=== PATIENT | female | born 1975 | race Caucasian/White ===

== ENCOUNTER 2017-02-21 18:38 | Inpatient (IN) | payer MEDICAID, OTHER ==
[~2017-02-21] VITALS: Ht 160 cm; Wt 81.5 kg
[2017-02-21 19:09] VITALS: Ht 160 cm; Wt 81.5 kg
[2017-02-21] MEDS ORDERED: ONDANSETRON 4 MG INJ IV STA (19:10)
[2017-02-21] MEDS ORDERED: SODIUM CHLORIDE 0.9% 1L BAG IV* STA (19:10)
[2017-02-21] MEDS ORDERED: INSULIN LISPRO 100 UNIT/ML VIAL SC STA (19:13)
[2017-02-21] MEDS ORDERED: CEFTRIAXONE 1 GM/50 ML (PMX) 50 ML IVPB ONE (19:30)
[2017-02-21 19:38] LABS: AADO2 Arterial 56.8 mmHg (7.0-24.0); Arterial Base Excess -7.9 mmol/L (-3.0-3); Arterial COHb 0.2 % (0.0-3.0); Arterial Fraction of Oxyhgb 90.8 % (93.0-99.0); Arterial HCO3 15.4 mmol/L (22.0-26.0); Arterial MetHb 0.1 % (0.0-1.5); MODE ROOM AIR
[2017-02-21 19:42] LABS: BASOPHILS % 0.3 % (0.0-2.0); EOSINOPHILS % 0.4 % (0.0-7.0); HEMATOCRIT 35.3 % (37.0-47.0); HEMOGLOBIN 10.3 g/dl (12.0-16.0); LYMPHOCYTES # 2.7 10^3/ul (0.8-2.9); MEAN CORPUSCULAR HGB CONC 29.2 g/dl (32.0-37.0); MEAN CORPUSCULAR VOLUME 71.9 fl (82.0-101.0); MEAN PLATELET VOLUME 9.7 fl (7.4-10.4); MONOCYTE # 0.2 10^3/ul (0.3-0.9); MONOCYTES % 1.9 % (0.0-11.0); NEUTROPHIL # 6.3 10^3/ul (1.6-7.5); NEUTROPHILS % 67.1 % (39.0-77.0); PLATELET COUNT 275 10^3/UL (140-415); RED BLOOD COUNT 4.91 10^6/ul (4.20-5.40); RED CELL DISTRIBUTION WIDTH 16.7 % (11.5-14.5); WHITE BLOOD COUNT 9.5 10^3/ul (4.8-10.8)
[2017-02-21 19:58] LABS: INR 1.33; PROTIME 16.6 Sec (12.2-14.2); PT RATIO 1.3
[2017-02-21 19:59] LABS: ALBUMIN/GLOBULIN RATIO 0.93; BILIRUBIN,INDIRECT 0.3 mg/dl (0-1.1); BILIRUBIN,TOTAL 0.3 mg/dl (0.2-1.3); CALCIUM 8.8 mg/dl (8.4-10.2); CREATININE 0.79 mg/dl (0.44-1.00); PARTIAL THROMBOPLASTIN TIME 29.4 Sec (25.0-35.0); TOTAL PROTEIN 8.3 g/dl (6.1-8.1)
[2017-02-21 20:02] LABS: ADD UMIC YES; UR ASCORBIC ACID NEGATIVE (NEGATIVE); UR BILIRUBIN (Dip) NEGATIVE (NEGATIVE); UR BLOOD (Dip) NEGATIVE (NEGATIVE); UR CLARITY SLIGHTLY CLOUDY (CLEAR); UR COLOR YELLOW (YELLOW); UR GLUCOSE (Dip) 3+ mg/dL (NEGATIVE); UR KETONES (Dip) TRACE mg/dL (NEGATIVE); UR LEUKOCYTE ESTERASE (Dip) NEGATIVE Leu/ul (NEGATIVE); UR NITRITE (Dip) NEGATIVE (NEGATIVE); UR RBC 2 /HPF (0-5); UR SPECIFIC GRAVITY (Dip) 1.029 (1.003-1.030); UR TOTAL PROTEIN (Dip) 3+ mg/dl (NEGATIVE); UR UROBILINOGEN (Dip) 1+ mg/dL (NEGATIVE)
[2017-02-21] MEDS ORDERED: POTASSIUM CHLORIDE 40 MEQ in SOD CHLORIDE 0.9% 1,000 ML IV STA (20:11)
[2017-02-21 20:12] LABS: TROPONIN-I 0.025 ng/ml (0.00-0.12)
--- NOTE | 2017-02-21 20:25 | RADRPT ---
PROCEDURE: Noncontrast CT Head. CLINICAL INDICATION: Syncope. TECHNIQUE: Noncontrast CT of the head was obtained. The administered radiation dose was CTDI vol = 45.01 mGy, DLP = 720.23 mGy-cm. One or more of the following dose reduction techniques were used: Au tomated exposure control, Adjustment of the mA and/or kV according to patient size, or Use of iterat patricia reconstruction technique. COMPARISON: There are no similar studies submitted for comparison. FINDINGS: There is no acute intracranial hemorrhage, midline shift, or mass effect. The cerebral vidal-white ma tter differentiation appears preserved. No extra-axial collection is seen. The cerebral sulci and ve ntricles are within normal limits in size and configuration for patient's age. Mild low attenuation in the deep cerebral white matter is nonspecific, but suggestive of mild chronic microangiopathic ch travis. The basal cisterns are preserved. The posterior fossa structures are grossly unremarkable, alt ton suboptimally evaluated with CT secondary to beam-hardening artifact. The right frontal sinus i s hypoplastic. The remaining visualized paranasal sinuses and visualized mastoid air cells are clear . No acute fracture or suspicious osseous lesion is identified. IMPRESSION: 1. No evidence of an acute intracranial process. 2. 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 3. Hypoplastic right frontal sinus. RPTAT: [facility] Physician Alejandro Date Time Electronically viewed and signed by Physician Alejandro on 02/21/2017 20:25 DYAN/
--- NOTE | 2017-02-21 20:29 | ERD ---
ER Documentation Chief Complaint Chief Complaint syncope at work +n/v +fever hx dm bs 432 HPI 41-year-old woman brought in by family members for syncopal episode which occurred about half an hour prior to arrival. 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 States she has had dysuria 2 days. The syncopal episode was witnessed no one documented tonic-clonic seizure activity. Momentary bowel and bladder incontinence did occur and she seemed postictal and confused after getting up. Patient also has a history of diabetes mellitus and is noncompliant with her medications. She has had no recent antibiotic use, no recent travel. ROS All systems reviewed and are negative except as per history of present illness. Allergies Allergies: Coded Allergies: No Known Allergy (Unverified , 02/21/17) PMhx/Soc Diabetes mellitus FmHx Family History: diabetes Physical Exam Vitals Vital Signs Date Time Temp Pulse Resp B/P Pulse Ox O2 Delivery O2 Flow Rate FiO2 02/21/17 21:56 99.9 106 18 78/49 100 Nasal Cannula 3.0 02/21/17 19:51 3.0 02/21/17 19:09 104.1 161 18 109/64 100 02/21/17 19:00 100.1 107 19 95/55 100 Nasal Cannula 2.0 02/21/17 19:00 Nasal Cannula Physical Exam GENERAL: Well-developed, well-nourished, febrile, dehydrated, appears postictal HEENT: Dry mucous membranes, pink conjunctiva, no cervical spine tenderness or step-off deformities, no goiter, no jaundice or icterus, extraocular movements intact without pain. No submandibular induration, and no pharyngeal erythema NEURO: Patient appears confused and is unwilling or unable to speak, pupils are equal round reactive to light, she has no focal deficits or facial asymmetry, is able to answer simple questions and follow commands. CARDIAC: Tachycardic and regular, no murmurs rubs or gallops LUNGS: Clear bilaterally no wheezing crackles or stridor ABDOMEN: Soft nontender, no guarding, no rigidity, no rebound, no psoas sign no obturator sign. Normoactive bowel sounds SKIN: Warm and dry to touch, no abrasions, contusions, or hematomas, no lacerations, no ecchymosis, no target lesions, and without ulcers EXTREMITIES: No clubbing cyanosis or edema, calves are bilaterally symmetrical, no Homans sign, no popliteal cord sign. Distal pulses equal and bilateral PSYCH: Normal affect without agitation or irritability Result Diagram: 02/21/17192302/21/171923 Results 24 hrs Laboratory Tests Test 02/21/17 19:07 02/21/17 19:13 02/21/17 19:24 02/21/17 19:30 Bedside Glucose 432mg/dL Blood Gas Specimen Source Blood arterial Arterial Blood Date Drawn 02/21/2017 7:25:40 PM Arterial Blood pH (Temp corrected) 7.403 Arterial Blood pCO2 (Temp correct) 25.2mmhg Arterial Blood pO2 (Temp corrected) 62.8mmHG Arterial Blood HCO3 15.4mmol/L Arterial Blood Base Excess -7.9mmol/L Arterial Blood Oxygen Saturation 91.1mmHG Guillermo Test N/A Arterial Blood Gas Puncture Site Right Brachial Arterial Blood Carboxyhemoglobin 0.2% Arterial Blood Methemoglobin 0.1% Blood Gas A-a O2 Differential 56.8mmHg Oxyhemoglobin Percent 90.8% Total Hemoglobin 11.0g/dl Blood Gas Temperature 37.0C Blood Gas Modality ROOM AIR FiO2 21.0% Blood Gas Notified Whom KM Blood Gas Notified Time 02/21/2017 7:38:26 PM White Blood Count 9.510^3/ul Red Blood Count 4.9110^6/ul Hemoglobin 10.3g/dl Hematocrit 35.3% Mean Corpuscular Volume 71.9fl Mean Corpuscular Hemoglobin 21.0pg Mean Corpuscular Hemoglobin Concent 29.2g/dl Red Cell Distribution Width 16.7% Platelet Count 80297^3/UL Mean Platelet Volume 9.7fl Neutrophils % 67.1% Lymphocytes % 29.0% Monocytes % 1.9% Eosinophils % 0.4% Basophils % 0.3% Nucleated Red Blood Cells % 0.0/100WBC Neutrophils # 6.310^3/ul Lymphocytes # 2.710^3/ul Monocytes # 0.210^3/ul Eosinophils # 0.010^3/ul Basophils # 0.010^3/ul Nucleated Red Blood Cells # 0.010^3/ul Prothrombin Time 16.6Sec Prothrombin Time Ratio 1.3 INR International Normalized Ratio 1.33 Activated Partial Thromboplast Time 29.4Sec Sodium Level 136mmol/L Potassium Level 3.0mmol/L Chloride Level 100mmol/L Carbon Dioxide Level 16mmol/L Anion Gap 23 Blood Urea Nitrogen 11mg/dl Creatinine 0.79mg/dl Glucose Level 454mg/dl Lactic Acid Level 4.5mmol/L Calcium Level 8.8mg/dl Total Bilirubin 0.3mg/dl Direct Bilirubin 0.00mg/dl Indirect Bilirubin 0.3mg/dl Aspartate Amino Transf (AST/SGOT) 29IU/L Alanine Aminotransferase (ALT/SGPT) 37IU/L Alkaline Phosphatase 154IU/L Troponin I 0.025ng/ml Total Protein 8.3g/dl Albumin 4.0g/dl Globulin 4.30g/dl Albumin/Globulin Ratio 0.93 Lipase 78U/L Urine Color YELLOW Urine Clarity SLIGHTLY CLOUDY Urine pH 5.0 Urine Specific Gardiner 1.029 Urine Ketones TRACEmg/dL Urine Nitrite NEGATIVEmg/dL Urine Bilirubin NEGATIVEmg/dL Urine Urobilinogen 1+mg/dL Urine Leukocyte Esterase NEGATIVELeu/ul Urine Microscopic RBC 2/HPF Urine Microscopic WBC 18/HPF Urine Hemoglobin NEGATIVEmg/dL Urine Glucose 3+mg/dL Urine Total Protein 3+mg/dl Test 02/21/17 20:10 Bedside Glucose 382mg/dL Current Medications Medications (Trade) Dose Ordered Sig/Hayden Route PRN Reason Start Time Stop Time Status Last Admin Dose Admin Sodium Chloride (NS) 4,000 ml BOLUS OVER 2 HOURS STAT IV* 02/21/17 19:10 02/21/17 19:12 DC 02/21/17 19:54 Ondansetron HCl 4 mg 4 mg ONCE STAT IV 02/21/17 19:10 02/21/17 19:12 DC 02/21/17 19:54 Ceftriaxone Sodium (Rocephin) 50 ml @ 100 mls/hr ONCE ONCE IVPB 02/21/17 19:30 02/21/17 19:59 DC 02/21/17 19:55 Insulin Human Lispro 12 unit 12 unit ONCE STAT SC 02/21/17 19:13 02/21/17 19:14 DC 02/21/17 19:58 Potassium Chloride 40 meq/ Sodium Chloride 1,020 ml @ 200 mls/hr Q5H6M STAT IV 02/21/17 20:11 02/22/17 01:16 02/21/17 21:09 Magnesium Sulfate (Magnesium Sulfate 2 Gm/50 ml) 50 ml @ 25 mls/hr ONCE ONCE IVPB 02/21/17 20:30 02/21/17 22:29 02/21/17 21:09 Potassium Chloride 20 meq 20 meq ONCE STAT PO 02/21/17 21:01 02/21/17 21:06 DC 02/21/17 21:22 Vancomycin HCl (Vancocin) 250 ml @ 125 mls/hr ONCE IVPB 02/21/17 21:30 02/21/17 23:29 02/21/17 21:22 Ondansetron HCl (Zofran Inj) 4 mg Q6H PRN IV NAUSEA AND/OR VOMITING 02/21/17 22:00 Albuterol/ Ipratropium (Duoneb) 3 ml Q2H RESP THERAPY PRN NEB SHORTNESS OF BREATH 02/21/17 22:00 Acetaminophen (Tylenol Liquid) 650 mg Q6H PRN PO PAIN LEVEL 1-3 OR FEVER 02/21/17 22:00 Morphine Sulfate (morphine) 2 mg Q4H PRN IV PAIN LEVEL 7-10 02/21/17 22:00 Famotidine (Pepcid Iv) 20 mg Q12 IV 02/22/17 09:00 Heparin Sodium (Porcine) (Heparin (5000 Units/0.5 ml)) 5,000 unit Q12 SC 02/22/17 09:00 Dextrose (D50w Syringe) 50 ml Q15M PRN IV For BS 50 or less 02/21/17 22:00 Dextrose 25 ml 25 ml Q15M PRN IV BS between 50-70 02/21/17 22:00 Sodium Chloride 1,000 ml @ 1,000 mls/hr Q1H IV 02/21/17 21:48 02/21/17 22:47 Lactated Ringer's 1,000 ml @ 1,000 mls/hr Q1H IV 02/21/17 22:48 02/21/17 23:47 Potassium Chloride 20 meq/ Sodium Chloride 1,010 ml @ 500 mls/hr Q2H2M IV 02/21/17 23:48 02/22/17 01:47 Insulin Human Regular/Sodium Chloride (Novolin-R/NS) 100 ml @ 0 mls/hr DKA PROTOCOL IV 02/21/17 22:00 Diagnostic Test (Pha) (Accu-Chek) 1 ea Q1H XX 02/21/17 22:00 Miscellaneous Information HYPOGLYCEMIA TREATMENT HYPOGLYCEM PROTOCOL PRN XX Hypoglycemia (BS < 70) 02/21/17 22:00 Ceftriaxone Sodium (Rocephin) 50 ml @ 100 mls/hr Q12 IVPB 02/22/17 09:00 Procedures/MDM IV line was established 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 Patient was febrile. Blood and urine, stool cultures have been ordered results are pending I will follow-up. Joseph catheter was placed. Patient was initially hyperglycemic with a blood sugar of over 400. EKG performed, read by me revealed a sinus tachycardia at 150 bpm, normal axis, narrow QRS complex, no concerning ST elevations or depressions noted. Administered 4 L normal saline, ibuprofen 600 mg p.o., and lispro insulin 12 units subcutaneous injection 1 for hyperglycemia. Patient also received Zofran 4 mg IV for vomiting. ABG on room air revealed a pH of 7.4, PCO2 25, PO2 63. PH is normal although I suspect early metabolic acidosis. Chest X-ray 1V Interpreted by me: Soft Tissue: No acute abnormalities Bones: No acute abnormalities Mediastinum/Cardiac Silhouette/Lungs: No acute abnormalities CT scan of the brain was performed that was negative for acute bleed mass or shift. CBC was unremarkable, electrolytes revealed hyperglycemia and a low potassium at 3.0. Bicarb low at 16, liver function tests normal, troponin negative. Coagulation profile was normal. Urine analysis was concerning for infection with elevated urine WBCs especially in the setting of fever and 2 days of dysuria. I suspect sepsis secondary to urinary tract infection. Lactic acid elevated initially at 4.5 consistent with septic shock. Patient's blood sugar has improved and I do suspect diabetic ketoacidosis although potassium is less than 3 and we will hold insulin drip until potassium is adequately corrected. The patient was placed on a normal saline 40 mEq potassium drip supplemented at 200 m/hour the patient also received magnesium 2 g IV 1. Patient may have suffered a tonic-clonic seizure today most likely secondary to sepsis and high fever with a temperature over 105F. She will be admitted to intensive care unit for continued medical management, IV hydration, DKA management, and IV antibiotics. Patient's infectious symptoms have not stabilized and the patient is at risk of rapid decompensation. The patient will be admitted for careful hydration, antibiotic therapy, and infectious source control. Patient also received vancomycin 1 g IV 1. Severe Sepsis Assessment: Infectious Source: pyleonephritis End organ damage indicated by: [Lactate > 2.0 mmol/L Severe Sepsis Managment: Blood Cultures X 2 before broad spectrum antibiotics initiated within 3 hours of recognition. 30 ml/kg NS bolus Completed Initial Lactate: 4.5 Repeat Lactate elevated Critical Care: Time: 50 minutes, this is time separate from other billable procedures Treatments/Evaluations: Emergent fluid management, while maintaining close respiratory support. Immediate broad spectrum antibiotic therapy. Simultaneous assessment for possible sources in order to direct therapy. Consideration for invasive and chemical support to prevent respiratory or cardiac collapse. Septic Shock Assessment (1 hour post 30 ml/kg fluid bolus): Hypotension (SBP < 90 or 40 mmHg drop, MAP < 65): No Lactic acid > 4.0 yes Perfusion Reassessment for Septic Shock: Temp 101F, pulse 120 bpm, respiratory rate 20 breaths per minute, BP 130/82 Heart Exam: Tachycardic Lung Exam: No Crackles Capillary Refill: Less than 2 seconds Peripheral Pulses: Radially present Skin: Vaughn and dry Hypotensive Treatment (not required for isolated lactic acid elevation): Comfort Care: No Central LIne: Not indicated Vasopressor started: Not indicated I considered further perfusion assessment with CVP measurement, SCVO2, bedside ultrasound volume assessment, passive leg raise, trial of further fluid bolus. And preceded with aggressive IV hydration, broad-spectrum antibiotics, potassium supplementation Accepting Care Team: Current data and ongoing care discussed. Time: Time of admission Primary Provider: Hospitalist Consulting: Infectious disease disease and Endocrinology Outstanding Data: none Departure Diagnosis: Primary Impression: Syncope Syncope type: unspecified Qualified Code: R55 - Syncope, unspecified syncope type Additional Impressions: Septic shock Acute pyelonephritis Diabetic ketoacidosis Diabetes mellitus type: type 2 Diabetes mellitus complication detail: without coma Qualified Code: E13.10 - Diabetic ketoacidosis without coma associated with type 2 diabetes mellitus Acute hypokalemia Acute hyperglycemia Condition: Serious DIEUDONNE العراقي MD Feb 21, 2017 20:11
[2017-02-21] MEDS ORDERED: MAGNESIUM SULFATE 2 GM/50 ML 50 ML IVPB ONE (20:30)
--- NOTE | 2017-02-21 20:54 | RADRPT ---
PROCEDURE: XR Chest 1 View. CLINICAL INDICATION: Shortness of breath. Sepsis. TECHNIQUE: AP view of the chest was obtained. COMPARISON: None. FINDINGS: The cardiomediastinal silhouette is within normal limits. Elevated right hemidiaphragm is identified . Scattered atelectasis is noted in both lungs. The lungs are hypoinflated. No consolidations are id entified. No pneumothorax is seen. Osseous structures are intact. IMPRESSION: Hypoinflated lungs with an elevated right hemidiaphragm. Scattered subsegmental atelectasis in both lungs. RPTAT: AA .Rico Beard MD, MD Date Time Electronically viewed and signed by .Rico Beard MD, MD on 02/21/2017 20:54 .P/
[2017-02-21] MEDS ORDERED: POTASSIUM CHLORIDE (SR) 20 MEQ TAB PO STA (21:01)
[2017-02-21] MEDS ORDERED: VANCOMYCIN 1 GM (PMX) 250 ML IVPB SCH (21:30)
[2017-02-21] MEDS ORDERED: SOD CHLORIDE 0.9% 1,000 ML IV SCH (21:48)
[2017-02-21] MEDS ORDERED: ALBUTEROL/IPRATROPIUM (NEB) 3 ML AMP NEB PRN (22:00)
[2017-02-21] MEDS ORDERED: INSULIN HUMAN REGULAR 100 UNIT in SOD CHLORIDE 0.9% 99 ML IV SCH (22:00)
[2017-02-21] MEDS ORDERED: DEXTROSE 50% 50 ML SYRINGE IV PRN ×2 (22:00)
[2017-02-21] MEDS: ACCU-CHEK XX SCH ×2 (22:14→23:00)
[2017-02-21] MEDS ORDERED: LACTATED RINGER'S 1,000 ML IV SCH (22:48)
[2017-02-21] MEDS ORDERED: DEXTROSE 5% 1,000 ML IV PRN (23:00)
[2017-02-21] MEDS: INSULIN REGULAR, HUMAN 100 UNIT in SOD CHLORIDE 0.9% 100 ML IV SCH ×2 (23:29)
[2017-02-21] MEDS ORDERED: ADJUSTMENT OF INSULIN INFUSION RATE (DKA PROTOCOL) XX SCH ×2 (23:30)
[2017-02-21] MEDS ORDERED: POTASSIUM CHLORIDE 20 MEQ in SOD CHLORIDE 0.9% 1,000 ML IV SCH (23:48)
[2017-02-22] VITALS (17 sets, daily range): BP systolic 81–105; BP diastolic 57–68; PULSE 72–89; RESP 14–32; TEMP 98.3; BMI 31.8
[2017-02-22 00:26] LABS: CALCIUM 7.1 mg/dl (8.4-10.2); CREATININE 0.73 mg/dl (0.44-1.00)
[2017-02-22] MEDS: ACCU-CHEK XX SCH ×24 (01:01→23:33)
[2017-02-22 01:02] LABS: POTASSIUM 2.9 mmol/L (3.5-5.1)
[2017-02-22] MEDS: morphine 2 MG INJ IV PRN (05:12)
[2017-02-22] MEDS ORDERED: SOD CHLORIDE 0.9% 500 ML IV ONE (06:00)
[2017-02-22] MEDS: IBUPROFEN 200 MG TAB PO PRN (06:24)
[2017-02-22 06:29] LABS: ALBUMIN/GLOBULIN RATIO 0.83; BILIRUBIN,INDIRECT 0.2 mg/dl (0-1.1); BILIRUBIN,TOTAL 0.2 mg/dl (0.2-1.3); CALCIUM 7.2 mg/dl (8.4-10.2); CREATININE 0.55 mg/dl (0.44-1.00); POTASSIUM 3.4 mmol/L (3.5-5.1); TOTAL PROTEIN 6.6 g/dl (6.1-8.1)
--- NOTE | 2017-02-22 06:40 | HP ---
Date/Time of Note Date/Time of Note DATE: 02/22/17 TIME: 06:30 Assessment/Plan VTE Prophylaxis VTE Prophylaxis Intervention: heparin Assessment/Plan Assessment/Plan 1. DKA -Insulin according to DKA protocol -Need to correct hypokalemia and as such insulin has to be hold momentarily -Continue IV fluids, correct electrolytes as needed -Endocrine consult -Diabetes teaching when the patient becomes more awake 2. Acute encephalopathy -Possibly secondary to seizure, related to DKA vs UTI vs other -Head CT negative for acute findings -Treat DKA and UTI -will obtain MRI of the brain 3. UTI -IV antibiotic - Follow-up culture results HPI/ROS Admit Date/Time Admit Date/Time Hx of Present Illness This is a 41-year-old female with a history of diabetes was brought to the ER for a loss of consciousness. 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 Patient is altered and as such information is gathered from chart review and from ER physician. Reportedly patient had fever 1 day and earlier today had nonbilious nonbloody emesis. Patient was in witnessed to have a loss of consciousness. The circumstances how it occurs is not clear. She did have a bladder and bowel incontinence but no witnessed seizure-like activity. When patient presented to the ER, she had a temperature of 100.1, heart rate 107 , BP 95/55. Labs shows glucose of 454, AG 23, bicarb 16, potassium 3, lactate 3. Urinalysis was consistent with UTI and also showed trace ketones. 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 Patient has been started on a DKA protocol and awaiting ICU admission. PMH/Family/Social Social History Smoking Status: Current every day smoker Exam/Review of Systems Vital Signs Vitals Vital Signs Date Time Temp Pulse Resp B/P Pulse Ox O2 Delivery O2 Flow Rate FiO2 02/22/17 05:09 98.9 101 19 96/65 100 Nasal Cannula 2.0 Exam Constitutional: other (Sleepy. No acute distress) Head: atraumatic, normocephalic Eyes: PERRL Respiratory: clear to auscultation Cardiovascular: other (Tachycardic with regular rhythm) Gastrointestinal: soft Extremities: normal pulses Labs Result Diagram: 02/21/17192302/21/17 2319 Medications Medications Current Medications Ondansetron HCl (Zofran Inj) 4 mg Q6H PRN IV NAUSEA AND/OR VOMITING; Start at 22:00 Acetaminophen (Tylenol Liquid) 650 mg Q6H PRN PO PAIN LEVEL 1-3 OR FEVER; Start 02/21/17 at 22:00 Morphine Sulfate (morphine) 2 mg Q4H PRN IV PAIN LEVEL 7-10 Last administered on 02/22/17 05:12; Admin Dose 2 MG; Start 02/21/17 at 22:00 Famotidine (Pepcid Iv) 20 mg Q12 IV ; Start 02/22/17 at 09:00 Heparin Sodium (Porcine) (Heparin (5000 Units/0.5 ml)) 5,000 unit Q12 SC ; Start 02/22/17 at 09:00 Dextrose (D50w Syringe) 50 ml Q15M PRN IV For BS 50 or less; Start 02/21/17 at 22:00 Dextrose (D50w Syringe) 25 ml Q15M PRN IV BS between 50-70; Start 02/21/17 at 22:00 Diagnostic Test (Pha) 1 ea 1 ea Q1H XX Last administered on 02/22/17 05:11; Admin Dose 1 EA; Start 02/21/17 at 22:00 Ceftriaxone Sodium (Rocephin) 50 ml @ 100 mls/hr Q12 IVPB ; Start 02/22/17 at 09:00 Miscellaneous Information 1 ea 1 ea NOTE XX ; Start 02/21/17 at 23:30 Dextrose (D5W) 1,000 ml @ 75 mls/hr IV PRN IV LOW BLOOD GLUCOSE Last administered on 02/22/17 00:01; Admin Dose 75 MLS/HR; Start 02/21/17 at 23:00 Miscellaneous Information 1 ea 1 ea NOTE XX ; Start 02/21/17 at 23:30 Potassium Chloride (KCl 40 MEQ/250 ML NS) 250 ml @ 62.5 mls/hr Q4H IVPB ; Start 02/22/17 at 06:00; Stop 02/22/17 at 13:59 Ibuprofen (Motrin) 400 mg Q6H PRN PO pain Last administered on 02/22/17 06:24 ; Admin Dose 400 MG; Start 02/22/17 at 06:00 Acetaminophen 650 mg 650 mg Q6H PRN PO pain; Start 02/22/17 at 06:00 Sodium Chloride (NS) 500 ml @ 500 mls/hr Q1H ONCE IV ; Start 02/22/17 at 06:00 ; Stop 02/22/17 at 06:59 SHLOMO KEN MD Feb 22, 2017 06:40
[2017-02-22] MEDS: POTASSIUM CHLORIDE 250 ML IVPB SCH ×2 (07:15→10:05)
[2017-02-22] MEDS: FAMOTIDINE 20 MG INJ IV SCH ×2 (08:41→20:18)
[2017-02-22] MEDS: ONDANSETRON 4 MG INJ IV PRN ×2 (08:41→16:48)
[2017-02-22] MEDS ORDERED: CEFTRIAXONE 1 GM/50 ML (PMX) 50 ML IVPB SCH (09:00)
[2017-02-22] MEDS: HEPARIN 5,000 UNIT/0.5 ML VIAL SC SCH ×2 (09:05→20:23)
[2017-02-22] MEDS ORDERED: SOD CHLORIDE 0.45% 1,000 ML IV SCH (11:00)
[2017-02-22] MEDS: DEXTROSE 5%-0.45% NACL 1,000 ML IV SCH ×3 (11:06→22:32)
[2017-02-22] MEDS: SOD CHLORIDE 0.45% 1,000 ML IV SCH ×2 (11:06→17:40)
[2017-02-22] MEDS: ACETAMINOPHEN 650MG/20.3ML CUP PO PRN (12:32)
[2017-02-22 14:38] LABS: ALBUMIN 2.4 g/dl (3.3-4.9); ALBUMIN/GLOBULIN RATIO 0.61; BILIRUBIN,INDIRECT 0.1 mg/dl (0-1.1); BILIRUBIN,TOTAL 0.1 mg/dl (0.2-1.3); CALCIUM 7.3 mg/dl (8.4-10.2); CREATININE 0.48 mg/dl (0.44-1.00); POTASSIUM 3.8 mmol/L (3.5-5.1); TOTAL PROTEIN 6.3 g/dl (6.1-8.1)
[2017-02-22 14:58] LABS: TOTAL IRON BINDING CAPACITY 289 ug/dl (241-421)
[2017-02-22 15:05] LABS: IRON < 10 ug/dl (35-150)
[2017-02-22 15:20] LABS: THYROID STIMULATING HORMONE 0.947 MIU/L (0.465-4.680)
[2017-02-22 15:24] LABS: FERRITIN 44.3 ng/ml (6.2-137.0)
--- NOTE | 2017-02-22 17:50 | PN ---
Date/Time of Note Date/Time of Note DATE: 02/22/17 TIME: 17:49 Assessment/Plan VTE Prophylaxis VTE Prophylaxis Intervention: SCD's Lines/Catheters IV Catheter Type (from Nrs): Peripheral IV Assessment/Plan Chief Complaint/Hosp Course Patient is a 41-year-old female with a past medical history of diabetes noncompliant on medication presents with DKA Assessment and plan Diabetic ketoacidosis, resolving Acute encephalopathy, likely secondary to DKA Hypokalemia, resolved Anion gap metabolic acidosis, resolving Low iron Elevated troponin Obesity Medical noncompliance electrolyte derangement -In the ICU for DKA management, transitioning to ICU insulin drip management, likely switch over to long-acting in the a.m. -Patient noncompliant on Actos, endocrine has been consulted, recommendations appreciated -Elevated troponin, given patient's risk factors, cardiology has been consulted , will see tomorrow a.m. trending troponins -Correct electrolytes as needed -Diabetes counselor as needed -We will likely need continued iron supplementation, patient has fairly heavy periods the first couple days and has not had blood labs taken in over 4-5 years. May be patient's baseline state. Will likely need outpatient follow-up with [employer] and iron supplementation. Follow-up with to count in the morning Problems: Subjective 24 Hr Interval Summary Free Text/Dictation no acute complaints, no chest pain. Exam/Review of Systems Vital Signs Vitals Vital Signs Date Time Temp Pulse Resp B/P Pulse Ox O2 Delivery O2 Flow Rate FiO2 02/22/17 17:00 74 26 92/59 92 02/22/17 16:00 98.1 Nasal Cannula 02/22/17 09:00 2.0 Exam Physical exam General: Patient is laying in bed and answers questions appropriately Mentation: Patient is alert and oriented 4, Head: Normocephalic atraumatic Eyes: EOMI, pupils reactive to light Neck: Supple, nontender, midline Respiratory: Clear to auscultation bilaterally Cardiovascular: regular rate, no obvious murmurs Gastrointestinal: non-tender to palpation, bowel sounds heard. Neurological: Moves all extremities spontaneously Skin: No new skin lesions Results Result Diagram: 02/21/17 1924 02/22/17 1406 Results 24 hrs Laboratory Tests Test 02/21/17 19:07 02/21/17 19:13 02/21/17 19:24 02/21/17 19:30 Bedside Glucose 432 *H Blood Gas Specimen Source Blood arterial Arterial Blood Date Drawn 02/21/2017 7:25:40 PM Arterial Blood pH (Temp corrected) 7.403 Arterial Blood pCO2 (Temp correct) 25.2 L Arterial Blood pO2 (Temp corrected) 62.8 L Arterial Blood HCO3 15.4 L Arterial Blood Base Excess -7.9 L Arterial Blood Oxygen Saturation 91.1 L Guillermo Test N/A Arterial Blood Gas Puncture Site Right Brachial Arterial Blood Carboxyhemoglobin 0.2 Arterial Blood Methemoglobin 0.1 Blood Gas A-a O2 Differential 56.8 H Oxyhemoglobin Percent 90.8 L Total Hemoglobin 11.0 L Blood Gas Temperature 37.0 Blood Gas Modality ROOM AIR FiO2 21.0 Blood Gas Notified Whom KM Blood Gas Notified Time 02/21/2017 7:38:26 PM White Blood Count 9.5 Red Blood Count 4.91 Hemoglobin 10.3 L Hematocrit 35.3 L Mean Corpuscular Volume 71.9 L Mean Corpuscular Hemoglobin 21.0 L Mean Corpuscular Hemoglobin Concent 29.2 L Red Cell Distribution Width 16.7 H Platelet Count 275 Mean Platelet Volume 9.7 Neutrophils % 67.1 Lymphocytes % 29.0 Monocytes % 1.9 Eosinophils % 0.4 Basophils % 0.3 Nucleated Red Blood Cells % 0.0 Neutrophils # 6.3 Lymphocytes # 2.7 Monocytes # 0.2 L Eosinophils # 0.0 Basophils # 0.0 Nucleated Red Blood Cells # 0.0 Prothrombin Time 16.6 H Prothrombin Time Ratio 1.3 INR International Normalized Ratio 1.33 Activated Partial Thromboplast Time 29.4 Sodium Level 136 Potassium Level 3.0 L Chloride Level 100 Carbon Dioxide Level 16 L Anion Gap 23 H Blood Urea Nitrogen 11 Creatinine 0.79 Glucose Level 454 *H Lactic Acid Level 4.5 *H Calcium Level 8.8 Total Bilirubin 0.3 Direct Bilirubin 0.00 Indirect Bilirubin 0.3 Aspartate Amino Transf (AST/SGOT) 29 Alanine Aminotransferase (ALT/SGPT) 37 Alkaline Phosphatase 154 H Troponin I 0.025 Total Protein 8.3 H Albumin 4.0 Globulin 4.30 H Albumin/Globulin Ratio 0.93 Lipase 78 Urine Color YELLOW Urine Clarity SLIGHTLY CLOUDY A Urine pH 5.0 Urine Specific St[place] 1.029 Urine Ketones TRACE A Urine Nitrite NEGATIVE Urine Bilirubin NEGATIVE Urine Urobilinogen 1+ H Urine Leukocyte Esterase NEGATIVE Urine Microscopic RBC 2 Urine Microscopic WBC 18 H Urine Hemoglobin NEGATIVE Urine Glucose 3+ H Urine Total Protein 3+ H Test 02/21/17 20:10 02/21/17 21:05 02/21/17 22:11 02/21/17 23:16 Bedside Glucose 382 H 330 H 269 H Lactic Acid Level 2.8 *H Test 02/21/17 23:19 02/21/17 23:20 02/21/17 23:50 02/22/17 00:59 Sodium Level 139 Potassium Level 2.9 *L Chloride Level 113 H Carbon Dioxide Level 18 L Anion Gap 11 # Blood Urea Nitrogen 13 Creatinine 0.73 Glucose Level 275 #H Lactic Acid Level 2.0 Calcium Level 7.1 L Hemoglobin A1c 12.3 H Phosphorus Level 1.2 L Bedside Glucose 224 H 191 Test 02/22/17 01:51 02/22/17 02:54 02/22/17 03:57 02/22/17 05:10 Bedside Glucose 195 197 193 171 Test 02/22/17 05:42 02/22/17 06:29 02/22/17 07:13 02/22/17 08:09 Sodium Level 142 Potassium Level 3.4 L Chloride Level 115 H Carbon Dioxide Level 16 L Anion Gap 14 Blood Urea Nitrogen 11 Creatinine 0.55 Glucose Level 143 # Calcium Level 7.2 L Phosphorus Level 2.4 #L Total Bilirubin 0.2 Direct Bilirubin 0.00 Indirect Bilirubin 0.2 Aspartate Amino Transf (AST/SGOT) 51 H Alanine Aminotransferase (ALT/SGPT) 41 Alkaline Phosphatase 100 Total Protein 6.6 # Albumin 3.0 #L Globulin 3.60 H Albumin/Globulin Ratio 0.83 Bedside Glucose 125 105 128 Test 02/22/17 08:56 02/22/17 09:55 02/22/17 11:10 02/22/17 12:22 Bedside Glucose 126 131 163 124 Test 02/22/17 13:14 02/22/17 14:06 02/22/17 14:12 02/22/17 15:26 Bedside Glucose 140 131 132 Sodium Level 140 Potassium Level 3.8 Chloride Level 116 H Carbon Dioxide Level 18 L Anion Gap 10 Blood Urea Nitrogen 10 Creatinine 0.48 Glucose Level 131 Calcium Level 7.3 L Iron Level < 10 L Total Iron Binding Capacity 289 Percent Iron Saturation Ferritin 44.3 Total Bilirubin 0.1 L Direct Bilirubin 0.00 Indirect Bilirubin 0.1 Aspartate Amino Transf (AST/SGOT) 46 Alanine Aminotransferase (ALT/SGPT) 50 Alkaline Phosphatase 85 Troponin I 0.133 *H Total Protein 6.3 Albumin 2.4 L Globulin 3.90 H Albumin/Globulin Ratio 0.61 Thyroid Stimulating Hormone (TSH) 0.947 Hepatitis C Antibody NEGATIVE Test 02/22/17 16:07 02/22/17 17:12 Bedside Glucose 127 119 Medications Medications Current Medications Ondansetron HCl (Zofran Inj) 4 mg Q6H PRN IV NAUSEA AND/OR VOMITING Last administered on 02/22/17 16:48; Admin Dose 4 MG; Start 02/21/17 at 22:00 Acetaminophen (Tylenol Liquid) 650 mg Q6H PRN PO PAIN LEVEL 1-3 OR FEVER Last administered on 02/22/17 12:32; Admin Dose 650 MG; Start 02/21/17 at 22:00 Morphine Sulfate (morphine) 2 mg Q4H PRN IV PAIN LEVEL 7-10 Last administered on 02/22/17 05:12; Admin Dose 2 MG; Start 02/21/17 at 22:00 Famotidine (Pepcid Iv) 20 mg Q12 IV Last administered on 02/22/17 08:41; Admin Dose 20 MG; Start 02/22/17 at 09:00 Heparin Sodium (Porcine) (Heparin (5000 Units/0.5 ml)) 5,000 unit Q12 SC Last administered on 02/22/17 09:05; Admin Dose 5,000 UNIT; Start 02/22/17 at 09: 00 Dextrose (D50w Syringe) 50 ml Q15M PRN IV For BS 50 or less; Start 02/21/17 at 22:00 Dextrose (D50w Syringe) 25 ml Q15M PRN IV BS between 50-70; Start 02/21/17 at 22:00 Diagnostic Test (Pha) (Accu-Chek) 1 ea Q1H XX Last administered on 02/22/17 17:10; Admin Dose 1 EA; Start 02/21/17 at 22:00 Miscellaneous Information 1 ea 1 ea NOTE XX ; Start 02/21/17 at 23:30 Dextrose (D5W) 1,000 ml @ 75 mls/hr IV PRN IV LOW BLOOD GLUCOSE Last administered on 10/24/17at 00:01; Admin Dose 75 MLS/HR; Start 02/21/17 at 23:00 Miscellaneous Information 1 ea NOTE XX ; Start 02/21/17 at 23:30 Ibuprofen (Motrin) 400 mg Q6H PRN PO pain Last administered on 02/22/17 06:24 ; Admin Dose 400 MG; Start 02/22/17 at 06:00 Acetaminophen 650 mg 650 mg Q6H PRN PO pain; Start 02/22/17 at 06:00 Sodium Chloride 1,000 ml @ 150 mls/hr Q6H40M IV Last administered on 11:06; Admin Dose 150 MLS/HR; Start 02/22/17 at 11:00 Dextrose/Sodium Chloride 1,000 ml @ 200 mls/hr Q5H IV Last administered on 16:05; Admin Dose 200 MLS/HR; Start 02/22/17 at 11:00 Ceftriaxone Sodium 50 ml @ 100 mls/hr Q24H IVPB ; Start 02/23/17 at 09:00 Ferric Sodium Gluconate Complex/ Sodium Chloride (Ferrlecit/NS) 110 ml @ 100 mls/hr Q24H IVPB ; Start 02/22/17 at 17:30; Stop 02/24/17 at 18:35 DIEUDONNE BOYER Feb 22, 2017 17:50
[2017-02-22] MEDS: SOD FERRIC GLUC COMPLX 125 MG in SOD CHLORIDE 0.9% 100 ML IVPB SCH (18:08)
[2017-02-22 18:57] LABS: ALBUMIN 2.7 g/dl (3.3-4.9); ALBUMIN/GLOBULIN RATIO 0.75; BILIRUBIN,INDIRECT 0.1 mg/dl (0-1.1); BILIRUBIN,TOTAL 0.1 mg/dl (0.2-1.3); CALCIUM 7.3 mg/dl (8.4-10.2); CREATININE 0.46 mg/dl (0.44-1.00); POTASSIUM 4.1 mmol/L (3.5-5.1); TOTAL PROTEIN 6.3 g/dl (6.1-8.1)
[2017-02-22] MEDS: ACETAMINOPHEN 325 MG TAB PO PRN (18:57)
[2017-02-22 20:24] LABS: MAGNESIUM 1.8 mg/dl (1.7-2.5); PHOSPHORUS 2.5 mg/dl (2.5-4.9)
[2017-02-23] VITALS (27 sets, daily range): BP systolic 94–119; BP diastolic 43–84; PULSE 79–99; RESP 19–42
[2017-02-23] MEDS: SOD CHLORIDE 0.45% 1,000 ML IV SCH ×3 (00:20→13:40)
[2017-02-23] MEDS: ACCU-CHEK XX SCH ×33 (00:30→23:17)
[2017-02-23] MEDS: ACETAMINOPHEN 325 MG TAB PO PRN (00:36)
[2017-02-23] MEDS: ONDANSETRON 4 MG INJ IV PRN ×2 (00:42→08:05)
[2017-02-23] MEDS: DEXTROSE 5%-0.45% NACL 1,000 ML IV SCH ×3 (04:34→10:21)
[2017-02-23 06:01] LABS: RETICULOCYTE COUNT % 1.3 % (0.5-1.5)
[2017-02-23 06:26] LABS: ALBUMIN 3.1 g/dl (3.3-4.9); ALBUMIN/GLOBULIN RATIO 0.83; BILIRUBIN,INDIRECT 0.2 mg/dl (0-1.1); BILIRUBIN,TOTAL 0.2 mg/dl (0.2-1.3); CALCIUM 7.7 mg/dl (8.4-10.2); CREATININE 0.48 mg/dl (0.44-1.00); POTASSIUM 4.1 mmol/L (3.5-5.1); TOTAL PROTEIN 6.8 g/dl (6.1-8.1)
[2017-02-23] MEDS: ACETAMINOPHEN 650MG/20.3ML CUP PO PRN (08:05)
[2017-02-23] MEDS: CEFTRIAXONE 2 GM/NS 50 ML IVPB SCH (09:10)
[2017-02-23] MEDS: FAMOTIDINE 20 MG INJ IV SCH ×2 (09:10→21:02)
[2017-02-23] MEDS: HEPARIN 5,000 UNIT/0.5 ML VIAL SC SCH ×2 (09:10→21:03)
[2017-02-23] MEDS: INSULIN REGULAR, HUMAN 100 UNIT in SOD CHLORIDE 0.9% 100 ML IV SCH ×2 (09:12)
[2017-02-23] MEDS: morphine 2 MG INJ IV PRN ×2 (10:09→17:23)
[2017-02-23] MEDS ORDERED: ACET/BUTAL/CAFF TAB PO ONE (10:30)
[2017-02-23] MEDS ORDERED: CARISOPRODOL 350 MG TAB PO ONE (10:30)
[2017-02-23 10:48] LABS: BASOPHILS % 0.1 % (0.0-2.0); HEMOGLOBIN 8.3 g/dl (12.0-16.0); LYMPHOCYTES # 1.6 10^3/ul (0.8-2.9); LYMPHOCYTES % 20.3 % (15.0-51.0); MEAN CORPUSCULAR HEMOGLOBIN 21.5 pg (29.0-33.0); MEAN CORPUSCULAR HGB CONC 29.6 g/dl (32.0-37.0); MEAN CORPUSCULAR VOLUME 72.5 fl (82.0-101.0); MEAN PLATELET VOLUME 10.1 fl (7.4-10.4); MONOCYTE # 0.6 10^3/ul (0.3-0.9); MONOCYTES % 7.2 % (0.0-11.0); NEUTROPHIL # 5.5 10^3/ul (1.6-7.5); PLATELET COUNT 251 10^3/UL (140-415); RED BLOOD COUNT 3.86 10^6/ul (4.20-5.40); RED CELL DISTRIBUTION WIDTH 17.8 % (11.5-14.5); WHITE BLOOD COUNT 7.6 10^3/ul (4.8-10.8)
--- NOTE | 2017-02-23 13:09 | CONS ---
Date/Time of Note Date/Time of Note DATE: 02/23/17 TIME: 13:04 Assessment/Plan Assessment/Plan Problems: (1) Diabetes mellitus type 2 in obese Status: Chronic Comment: She has been off treatment and had a markedly elevated A1c. This is not due to the recent UTI. Recent UTIs would put her into the diabetic ketoacidosis. Please note the positive troponin. She will need to be placed on medication treatment when she is more stable. We will go with an oral regimen as per her request. (2) Diabetic ketoacidosis Status: Resolved Comment: Resolving. The persistent hyperchloremic metabolic acidosis is due to the normal saline in her not eating. I will get her started on a diet Qualifiers: Qualified Code: E13.10 - Diabetic ketoacidosis without coma associated with type 2 diabetes mellitus (3) Tobacco abuse Status: Chronic Comment: Strongly counseled (4) E. coli UTI (urinary tract infection) Status: Acute Comment: This is an infection and had does have some degree of resistance. She is on extended range cephalosporin and will follow along carefully. (5) Gram-negative bacteremia Status: Acute Comment: She will need antibiotics. I would consider oral Levaquin (6) Septic shock Status: Acute Comment: Improving. Transition over to lactated Ringer's for the IV fluids. In addition to this monitor for the troponin. Action on this as per primary team Consultation Date/Type/Reason Admit Date/Time February 21, 2017 Date of Consultation: Feb 22, 2017 Type of Consultation: Endocrinology Reason for Consultation Type II diabetic who came in with DKA and sepsis Referring Provider: DIEUDONNE BOYER Hx of Present Illness 41-year-old female who is out of medical contact. She had previously been treated for diabetes mellitus type 2 roughly 7 years ago with Actos. She took that for 1 year and self discontinued this. She had gone through a somewhat firm self enforce weight loss protocol. She had been her usual state of health but started to develop symptoms of dysuria. She became extremely ill was brought to the emergency room and found to be in DKA. Constitutional: febrile Eyes: visual change (Blurring vision) ENT: no complaints Respiratory: no complaints Cardiovascular: no complaints (Denies chest pain palpitations orthopnea or PND) Gastrointestinal: no complaints Genitourinary: dysuria Musculoskeletal: no complaints Past Medical History Medical History: diabetes Past Surgical History Past Surgical Hx: noncontributory Family History Significant Family History: diabetes, hypertension Social History Alcohol Use: none Smoking Status: Never smoker Drug Use: none Exam/Review of Systems Vital Signs Vitals Vital Signs Date Time Temp Pulse Resp B/P Pulse Ox O2 Delivery O2 Flow Rate FiO2 02/23/17 11:00 84 22 94/62 93 Room Air 02/23/17 08:00 100.0 02/23/17 01:00 2.0 Intake and Output 02/22/17 02/22/17 02/23/17 15:00 23:00 07:00 Intake Total 1333.0 ml 1308 ml 1408 ml Output Total 0 ml 0 ml Balance 1333.0 ml 1308 ml 1408 ml Exam Constitutional: alert, oriented Neck: non-tender, supple Respiratory: clear to auscultation, normal air movement Gastrointestinal: nl liver, spleen, non-tender, soft Results Result Diagram: 02/23/17 0944 02/23/17 0524 Results 24 hrs Laboratory Tests Test 02/22/17 13:14 02/22/17 14:06 02/22/17 14:12 02/22/17 15:26 Bedside Glucose 140 131 132 Sodium Level 140 Potassium Level 3.8 Chloride Level 116 H Carbon Dioxide Level 18 L Anion Gap 10 Blood Urea Nitrogen 10 Creatinine 0.48 Glucose Level 131 Calcium Level 7.3 L Phosphorus Level 2.5 Magnesium Level 1.8 Iron Level < 10 L Total Iron Binding Capacity 289 Percent Iron Saturation Ferritin 44.3 Total Bilirubin 0.1 L Direct Bilirubin 0.00 Indirect Bilirubin 0.1 Aspartate Amino Transf (AST/SGOT) 46 Alanine Aminotransferase (ALT/SGPT) 50 Alkaline Phosphatase 85 Troponin I 0.133 *H Total Protein 6.3 Albumin 2.4 L Globulin 3.90 H Albumin/Globulin Ratio 0.61 Thyroid Stimulating Hormone (TSH) 0.947 Hepatitis C Antibody NEGATIVE Test 02/22/17 16:07 02/22/17 17:12 02/22/17 18:06 02/22/17 18:12 Bedside Glucose 127 119 141 Sodium Level 141 Potassium Level 4.1 Chloride Level 118 H Carbon Dioxide Level 17 L Anion Gap 10 Blood Urea Nitrogen 8 Creatinine 0.46 Glucose Level 136 Calcium Level 7.3 L Total Bilirubin 0.1 L Direct Bilirubin 0.00 Indirect Bilirubin 0.1 Aspartate Amino Transf (AST/SGOT) 48 H Alanine Aminotransferase (ALT/SGPT) 39 Alkaline Phosphatase 85 Total Protein 6.3 Albumin 2.7 L Globulin 3.60 H Albumin/Globulin Ratio 0.75 Test 02/22/17 18:59 02/22/17 20:01 02/22/17 20:59 02/22/17 22:02 Bedside Glucose 119 138 150 152 Test 02/22/17 23:06 02/23/17 00:30 02/23/17 00:35 02/23/17 02:00 Bedside Glucose 168 206 222 H Troponin I 0.088 Test 02/23/17 03:13 02/23/17 04:31 02/23/17 05:24 02/23/17 05:34 Bedside Glucose 229 H 188 217 Absolute Reticulocyte Count 0.051 Percent Reticulocyte Count 1.3 Sodium Level 138 Potassium Level 4.1 Chloride Level 114 H Carbon Dioxide Level 16 L Anion Gap 12 Blood Urea Nitrogen 3 L Creatinine 0.48 Glucose Level 207 Calcium Level 7.7 L Total Bilirubin 0.2 Direct Bilirubin 0.00 Indirect Bilirubin 0.2 Aspartate Amino Transf (AST/SGOT) 44 Alanine Aminotransferase (ALT/SGPT) 40 Alkaline Phosphatase 94 Troponin I 0.096 Total Protein 6.8 Albumin 3.1 L Globulin 3.70 H Albumin/Globulin Ratio 0.83 Test 02/23/17 06:18 02/23/17 07:02 02/23/17 07:58 02/23/17 09:16 Bedside Glucose 200 217 226 H 239 H Test 02/23/17 09:44 02/23/17 10:13 02/23/17 11:04 02/23/17 11:57 White Blood Count 7.6 Red Blood Count 3.86 #L Hemoglobin 8.3 L Hematocrit 28.0 #L Mean Corpuscular Volume 72.5 L Mean Corpuscular Hemoglobin 21.5 L Mean Corpuscular Hemoglobin Concent 29.6 L Red Cell Distribution Width 17.8 H Platelet Count 251 Mean Platelet Volume 10.1 Neutrophils % 72.0 Lymphocytes % 20.3 Monocytes % 7.2 Eosinophils % 0.0 Basophils % 0.1 Nucleated Red Blood Cells % 0.0 Neutrophils # 5.5 Lymphocytes # 1.6 Monocytes # 0.6 Eosinophils # 0.0 Basophils # 0.0 Nucleated Red Blood Cells # 0.0 Bedside Glucose 233 H 221 H 223 H Medications Medications Current Medications Ondansetron HCl (Zofran Inj) 4 mg Q6H PRN IV NAUSEA AND/OR VOMITING Last administered on 02/23/17 08:05; Admin Dose 4 MG; Start 02/21/17 at 22:00 Acetaminophen (Tylenol Liquid) 650 mg Q6H PRN PO PAIN LEVEL 1-3 OR FEVER Last administered on 02/23/17 08:05; Admin Dose 650 MG; Start 02/21/17 at 22:00 Morphine Sulfate (morphine) 2 mg Q4H PRN IV PAIN LEVEL 7-10 Last administered on 02/23/17 10:09; Admin Dose 2 MG; Start 02/21/17 at 22:00 Famotidine (Pepcid Iv) 20 mg Q12 IV Last administered on 02/23/17 09:10; Admin Dose 20 MG; Start 02/22/17 at 09:00 Heparin Sodium (Porcine) (Heparin (5000 Units/0.5 ml)) 5,000 unit Q12 SC Last administered on 02/23/17 09:10; Admin Dose 5,000 UNIT; Start 02/22/17 at 09: 00 Dextrose (D50w Syringe) 50 ml Q15M PRN IV For BS 50 or less; Start 02/21/17 at 22:00 Dextrose (D50w Syringe) 25 ml Q15M PRN IV BS between 50-70; Start 02/21/17 at 22:00 Diagnostic Test (Pha) (Accu-Chek) 1 ea Q1H XX Last administered on 02/23/17 12:02; Admin Dose 1 EA; Start 02/21/17 at 22:00 Miscellaneous Information 1 ea 1 ea NOTE XX ; Start 02/21/17 at 23:30 Dextrose (D5W) 1,000 ml @ 75 mls/hr IV PRN IV LOW BLOOD GLUCOSE Last administered on 02/22/17 00:01; Admin Dose 75 MLS/HR; Start 02/21/17 at 23:00 Miscellaneous Information 1 ea NOTE XX ; Start 02/21/17 at 23:30 Ibuprofen (Motrin) 400 mg Q6H PRN PO pain Last administered on 02/22/17 06:24 ; Admin Dose 400 MG; Start 02/22/17 at 06:00 Acetaminophen 650 mg 650 mg Q6H PRN PO pain Last administered on 02/23/17 00: 36; Admin Dose 650 MG; Start 02/22/17 at 06:00 Sodium Chloride 1,000 ml @ 150 mls/hr Q6H40M IV Last administered on 11:06; Admin Dose 150 MLS/HR; Start 02/22/17 at 11:00 Dextrose/Sodium Chloride 1,000 ml @ 200 mls/hr Q5H IV Last administered on 10:10; Admin Dose 200 MLS/HR; Start 02/22/17 at 11:00 Ceftriaxone Sodium 50 ml @ 100 mls/hr Q24H IVPB Last administered on 09:10; Admin Dose 100 MLS/HR; Start 02/23/17 at 09:00 Ferric Sodium Gluconate Complex/ Sodium Chloride (Ferrlecit/NS) 110 ml @ 100 mls/hr Q24H IVPB Last administered on 02/22/17 18:08; Admin Dose 100 MLS/HR; Start 02/22/17 at 17:30; Stop 02/24/17 at 18:35 ANDRES KAN MD Feb 23, 2017 13:09
[2017-02-23] MEDS: LACTATED RINGER'S 1,000 ML IV SCH ×2 (13:28→21:02)
[2017-02-23] MEDS: LINAGLIPTIN 5 MG TABLET PO SCH (14:20)
[2017-02-23 14:47] LABS: ALBUMIN 2.7 g/dl (3.3-4.9); ANION GAP 10 (8-16); CALCIUM 8.2 mg/dl (8.4-10.2); CARBON DIOXIDE 21 mmol/L (21-31); CHLORIDE 113 mmol/L (97-110); GLUCOSE 209 mg/dl (70-220); PHOSPHORUS 2.8 mg/dl (2.5-4.9); POTASSIUM 3.6 mmol/L (3.5-5.1); SODIUM 140 mmol/L (135-144)
[2017-02-23 14:50] LABS: BLOOD UREA NITROGEN < 2 mg/dl (7-20)
--- NOTE | 2017-02-23 14:57 | PN ---
Date/Time of Note Date/Time of Note DATE: 02/23/17 TIME: 14:55 Assessment/Plan VTE Prophylaxis VTE Prophylaxis Intervention: heparin Lines/Catheters IV Catheter Type (from Nrs): Peripheral IV Assessment/Plan Chief Complaint/Hosp Course Patient is a 41-year-old female with a past medical history of diabetes noncompliant on medication presents with DKA Assessment and plan Diabetic ketoacidosis, resolving Acute encephalopathy, likely secondary to DKA Hypokalemia, resolved Anion gap metabolic acidosis, resolving Low iron Elevated troponin Obesity Medical noncompliance electrolyte derangement -In the ICU for DKA management, transitioning to ICU insulin drip management, likely switch over to long-acting in the a.m. -Patient noncompliant on Actos, endocrine has been consulted, recommendations appreciated -Elevated troponin, given patient's risk factors, cardiology has been consulted. pending recs -Correct electrolytes as needed -Diabetes counselor as needed -iron supplementation -1x soma and Fioricet ordered for headache/neck stiffness. -started trajenta per endocrine Problems: Subjective 24 Hr Interval Summary Free Text/Dictation complains of headache, mild muscle neck pain Exam/Review of Systems Vital Signs Vitals Vital Signs Date Time Temp Pulse Resp B/P Pulse Ox O2 Delivery O2 Flow Rate FiO2 02/23/17 12:00 85 02/23/17 11:00 22 94/62 93 Room Air 02/23/17 08:00 100.0 02/23/17 01:00 2.0 Intake and Output 02/22/17 02/22/17 02/23/17 15:00 23:00 07:00 Intake Total 1333.0 ml 1308 ml 1408 ml Output Total 0 ml 0 ml Balance 1333.0 ml 1308 ml 1408 ml Exam Physical exam General: Patient is laying in bed and answers questions appropriately Mentation: Patient is alert and oriented 4, Head: Normocephalic atraumatic Eyes: EOMI, pupils reactive to light Neck: Supple, nontender, midline Respiratory: Clear to auscultation bilaterally Cardiovascular: regular rate, no obvious murmurs Gastrointestinal: non-tender to palpation, bowel sounds heard. Neurological: Moves all extremities spontaneously Skin: No new skin lesions Results Result Diagram: 02/23/17 0944 02/23/17 1354 Results 24 hrs Laboratory Tests Test 02/22/17 15:26 02/22/17 16:07 02/22/17 17:12 02/22/17 18:06 Bedside Glucose 132 127 119 Sodium Level 141 Potassium Level 4.1 Chloride Level 118 H Carbon Dioxide Level 17 L Anion Gap 10 Blood Urea Nitrogen 8 Creatinine 0.46 Glucose Level 136 Calcium Level 7.3 L Total Bilirubin 0.1 L Direct Bilirubin 0.00 Indirect Bilirubin 0.1 Aspartate Amino Transf (AST/SGOT) 48 H Alanine Aminotransferase (ALT/SGPT) 39 Alkaline Phosphatase 85 Total Protein 6.3 Albumin 2.7 L Globulin 3.60 H Albumin/Globulin Ratio 0.75 Test 02/22/17 18:12 02/22/17 18:59 02/22/17 20:01 02/22/17 20:59 Bedside Glucose 141 119 138 150 Test 02/22/17 22:02 02/22/17 23:06 02/23/17 00:30 02/23/17 00:35 Bedside Glucose 152 168 206 Troponin I 0.088 Test 02/23/17 02:00 02/23/17 03:13 02/23/17 04:31 02/23/17 05:24 Bedside Glucose 222 H 229 H 188 Absolute Reticulocyte Count 0.051 Percent Reticulocyte Count 1.3 Sodium Level 138 Potassium Level 4.1 Chloride Level 114 H Carbon Dioxide Level 16 L Anion Gap 12 Blood Urea Nitrogen 3 L Creatinine 0.48 Glucose Level 207 Calcium Level 7.7 L Total Bilirubin 0.2 Direct Bilirubin 0.00 Indirect Bilirubin 0.2 Aspartate Amino Transf (AST/SGOT) 44 Alanine Aminotransferase (ALT/SGPT) 40 Alkaline Phosphatase 94 Troponin I 0.096 Total Protein 6.8 Albumin 3.1 L Globulin 3.70 H Albumin/Globulin Ratio 0.83 Test 02/23/17 05:34 02/23/17 06:18 02/23/17 07:02 02/23/17 07:58 Bedside Glucose 217 200 217 226 H Test 02/23/17 09:16 02/23/17 09:44 02/23/17 10:13 02/23/17 11:04 Bedside Glucose 239 H 233 H 221 H White Blood Count 7.6 Red Blood Count 3.86 #L Hemoglobin 8.3 L Hematocrit 28.0 #L Mean Corpuscular Volume 72.5 L Mean Corpuscular Hemoglobin 21.5 L Mean Corpuscular Hemoglobin Concent 29.6 L Red Cell Distribution Width 17.8 H Platelet Count 251 Mean Platelet Volume 10.1 Neutrophils % 72.0 Lymphocytes % 20.3 Monocytes % 7.2 Eosinophils % 0.0 Basophils % 0.1 Nucleated Red Blood Cells % 0.0 Neutrophils # 5.5 Lymphocytes # 1.6 Monocytes # 0.6 Eosinophils # 0.0 Basophils # 0.0 Nucleated Red Blood Cells # 0.0 Test 02/23/17 11:57 02/23/17 13:20 02/23/17 13:54 02/23/17 14:09 Bedside Glucose 223 H 233 H 203 Sodium Level 140 Potassium Level 3.6 Chloride Level 113 H Carbon Dioxide Level 21 Anion Gap 10 Blood Urea Nitrogen < 2 L Creatinine 0.50 Glucose Level 209 Calcium Level 8.2 L Phosphorus Level 2.8 Magnesium Level 1.7 Albumin 2.7 L Medications Medications Current Medications Ondansetron HCl (Zofran Inj) 4 mg Q6H PRN IV NAUSEA AND/OR VOMITING Last administered on 02/23/17 08:05; Admin Dose 4 MG; Start 02/21/17 at 22:00 Acetaminophen (Tylenol Liquid) 650 mg Q6H PRN PO PAIN LEVEL 1-3 OR FEVER Last administered on 02/23/17 08:05; Admin Dose 650 MG; Start 02/21/17 at 22:00 Morphine Sulfate (morphine) 2 mg Q4H PRN IV PAIN LEVEL 7-10 Last administered on 02/23/17 10:09; Admin Dose 2 MG; Start 02/21/17 at 22:00 Famotidine (Pepcid Iv) 20 mg Q12 IV Last administered on 02/23/17 09:10; Admin Dose 20 MG; Start 02/22/17 at 09:00 Heparin Sodium (Porcine) (Heparin (5000 Units/0.5 ml)) 5,000 unit Q12 SC Last administered on 02/23/17 09:10; Admin Dose 5,000 UNIT; Start 02/22/17 at 09: 00 Dextrose (D50w Syringe) 50 ml Q15M PRN IV For BS 50 or less; Start 02/21/17 at 22:00 Dextrose (D50w Syringe) 25 ml Q15M PRN IV BS between 50-70; Start 02/21/17 at 22:00 Diagnostic Test (Pha) (Accu-Chek) 1 ea Q1H XX Last administered on 02/23/17 14:10; Admin Dose 1 EA; Start 02/21/17 at 22:00 Miscellaneous Information 1 ea 1 ea NOTE XX ; Start 02/21/17 at 23:30 Dextrose (D5W) 1,000 ml @ 75 mls/hr IV PRN IV LOW BLOOD GLUCOSE Last administered on 02/22/17 00:01; Admin Dose 75 MLS/HR; Start 02/21/17 at 23:00 Miscellaneous Information 1 ea NOTE XX ; Start 02/21/17 at 23:30 Ibuprofen (Motrin) 400 mg Q6H PRN PO pain Last administered on 02/22/17 06:24 ; Admin Dose 400 MG; Start 02/22/17 at 06:00 Acetaminophen 650 mg 650 mg Q6H PRN PO pain Last administered on 02/23/17 00: 36; Admin Dose 650 MG; Start 02/22/17 at 06:00 Sodium Chloride 1,000 ml @ 150 mls/hr Q6H40M IV Last administered on 11:06; Admin Dose 150 MLS/HR; Start 02/22/17 at 11:00 Ceftriaxone Sodium 50 ml @ 100 mls/hr Q24H IVPB Last administered on 09:10; Admin Dose 100 MLS/HR; Start 02/23/17 at 09:00 Ferric Sodium Gluconate Complex 125 mg/Sodium Chloride 110 ml @ 100 mls/hr Q24H IVPB Last administered on 02/22/17 18:08; Admin Dose 100 MLS/HR; Start 02/22/17 at 17:30; Stop 02/24/17 at 18:35 Lactated Ringer's (Lr) 1,000 ml @ 125 mls/hr Q8H IV Last administered on 02/23 13:28; Admin Dose 125 MLS/HR; Start 02/23/17 at 13:00 Linagliptin (Tradjenta) 5 mg DAILY PO Last administered on 02/23/17 14:20; Admin Dose 5 MG; Start 02/23/17 at 13:30 DIEUDONNE BOYER Feb 23, 2017 14:57
[2017-02-23] MEDS ORDERED: POTASSIUM CHLORIDE 20 MEQ POWDER FOR ORAL SOLN PO ONE (15:00)
[2017-02-23] MEDS ORDERED: INSULIN HUMAN REGULAR 100 UNIT in SOD CHLORIDE 0.9% 99 ML IV SCH (15:30)
[2017-02-23] MEDS ORDERED: DEXTROSE 50% 50 ML SYRINGE IV PRN ×2 (15:30)
[2017-02-23] MEDS: SOD FERRIC GLUC COMPLX 125 MG in SOD CHLORIDE 0.9% 100 ML IVPB SCH (17:06)
[2017-02-23] MEDS ORDERED: POTASSIUM CHLORIDE (SR) 20 MEQ TAB PO STA (17:23)
[2017-02-23 20:57] LABS: ANION GAP 9 (8-16); CALCIUM 8.3 mg/dl (8.4-10.2); CARBON DIOXIDE 21 mmol/L (21-31); CHLORIDE 113 mmol/L (97-110); CREATININE 0.51 mg/dl (0.44-1.00); GLUCOSE 161 mg/dl (70-220); POTASSIUM 3.8 mmol/L (3.5-5.1); SODIUM 139 mmol/L (135-144)
[2017-02-23] MEDS: TOPIRAMATE 25 MG TAB PO SCH (21:02)
[2017-02-23 21:11] LABS: BLOOD UREA NITROGEN < 2 mg/dl (7-20)
[2017-02-24] VITALS (24 sets, daily range): BP systolic 103–130; BP diastolic 57–86; PULSE 66–85; RESP 15–23
[2017-02-24] MEDS: ACCU-CHEK XX SCH ×21 (00:16→12:13)
[2017-02-24] MEDS: ONDANSETRON 4 MG INJ IV PRN (04:30)
[2017-02-24] MEDS: IBUPROFEN 200 MG TAB PO PRN (04:34)
[2017-02-24] MEDS: LACTATED RINGER'S 1,000 ML IV SCH (05:47)
[2017-02-24 06:36] LABS: ALANINE AMINOTRANSFERASE 36 IU/L (13-69); ALBUMIN 2.9 g/dl (3.3-4.9); ALKALINE PHOSPHATASE 79 IU/L (42-121); ANION GAP 10 (8-16); ASPARTATE AMINO TRANSFERASE 17 IU/L (15-46); BILIRUBIN,INDIRECT 0.1 mg/dl (0-1.1); BILIRUBIN,TOTAL 0.1 mg/dl (0.2-1.3); CALCIUM 7.9 mg/dl (8.4-10.2); CARBON DIOXIDE 22 mmol/L (21-31); CHLORIDE 114 mmol/L (97-110); CREATININE 0.48 mg/dl (0.44-1.00); GLUCOSE 106 mg/dl (70-220); POTASSIUM 3.3 mmol/L (3.5-5.1); SODIUM 143 mmol/L (135-144); TOTAL PROTEIN 6.5 g/dl (6.1-8.1)
[2017-02-24 06:37] LABS: BLOOD UREA NITROGEN < 2 mg/dl (7-20)
[2017-02-24] MEDS: CEFTRIAXONE 2 GM/NS 50 ML IVPB SCH (09:02)
[2017-02-24] MEDS: LINAGLIPTIN 5 MG TABLET PO SCH (09:02)
[2017-02-24] MEDS: FAMOTIDINE 20 MG INJ IV SCH ×2 (09:02→20:57)
[2017-02-24] MEDS: ACETAMINOPHEN 325 MG TAB PO PRN (09:02)
[2017-02-24] MEDS: TOPIRAMATE 25 MG TAB PO SCH ×2 (09:02→20:57)
[2017-02-24] MEDS ORDERED: POTASSIUM CHLORIDE (SR) 20 MEQ TAB PO STA (09:03)
--- NOTE | 2017-02-24 09:03 | CONS ---
Date/Time of Note Date/Time of Note DATE: 02/24/17 TIME: 09:01 Assessment/Plan Assessment/Plan Chief Complaint/Hosp Course 41-year-old female who is out of medical contact. She had previously been treated for diabetes mellitus type 2 roughly 7 years ago with Actos. She took that for 1 year and self discontinued this. She had gone through a somewhat firm self enforce weight loss protocol. She had been her usual state of health but started to develop symptoms of dysuria. She became extremely ill was brought to the emergency room and found to be in DKA. Problems: (1) Migraine syndrome Status: Chronic Comment: Initiating prophylactic therapy which she is tolerating. She should go home on this. Please note this medication only will help with the migraines but also with the obesity which will help with a type 2 diabetes mellitus. (2) Acute hypokalemia Status: Acute Comment: Oral potassium today (3) Diabetes mellitus type 2 in obese Status: Chronic Comment: Take off the insulin drip transfer to regular floor care prep for discharge tomorrow (4) Tobacco abuse Status: Chronic Comment: Strongly counseled (5) E. coli UTI (urinary tract infection) Status: Acute Comment: On appropriate antibiotic therapy (6) Gram-negative bacteremia Status: Acute Comment: On appropriate antibiotic therapy Consultation Date/Type/Reason Admit Date/Time Feb 21, 2017 at 20:37 Initial Consult Date 02/22/17 Type of Consultation: Endocrinology Reason for Consultation DKA induced by gram-negative bacteremia and urinary tract infection; diabetes mellitus type 2 out of control; migraine syndrome Referring Provider: DIEUDONNE BOYER 24 HR Interval Summary Constitutional: improved Detailed Summary ENT: no complaints Respiratory: no complaints Cardiovascular: no complaints Gastrointestinal: no complaints Genitourinary: no complaints Exam/Review of Systems Vital Signs Vitals Vital Signs Date Time Temp Pulse Resp B/P Pulse Ox O2 Delivery O2 Flow Rate FiO2 02/24/17 05:30 82 18 109/77 93 02/24/17 05:00 Room Air 02/24/17 04:00 98.0 02/23/17 01:00 2.0 Intake and Output 02/23/17 02/23/17 02/24/17 15:00 23:00 07:00 Intake Total 1426.5 ml 1068.5 ml 516.5 ml Output Total 800 ml 0 ml 950 ml Balance 626.5 ml 1068.5 ml -433.5 ml Exam Constitutional: alert, oriented Respiratory: clear to auscultation, normal air movement Cardiovascular: nl pulses, regular rate and rhythm Gastrointestinal: nl liver, spleen, soft Results Result Diagram: 02/23/17 0944 02/24/17 0552 Results 24 hrs Laboratory Tests Test 02/23/17 09:16 02/23/17 09:44 02/23/17 10:13 02/23/17 11:04 Bedside Glucose 239 H 233 H 221 H White Blood Count 7.6 Red Blood Count 3.86 #L Hemoglobin 8.3 L Hematocrit 28.0 #L Mean Corpuscular Volume 72.5 L Mean Corpuscular Hemoglobin 21.5 L Mean Corpuscular Hemoglobin Concent 29.6 L Red Cell Distribution Width 17.8 H Platelet Count 251 Mean Platelet Volume 10.1 Neutrophils % 72.0 Lymphocytes % 20.3 Monocytes % 7.2 Eosinophils % 0.0 Basophils % 0.1 Nucleated Red Blood Cells % 0.0 Neutrophils # 5.5 Lymphocytes # 1.6 Monocytes # 0.6 Eosinophils # 0.0 Basophils # 0.0 Nucleated Red Blood Cells # 0.0 Test 02/23/17 11:57 02/23/17 13:20 02/23/17 13:54 02/23/17 14:09 Bedside Glucose 223 H 233 H 203 Sodium Level 140 Potassium Level 3.6 Chloride Level 113 H Carbon Dioxide Level 21 Anion Gap 10 Blood Urea Nitrogen < 2 L Creatinine 0.50 Glucose Level 209 Calcium Level 8.2 L Phosphorus Level 2.8 Magnesium Level 1.7 Albumin 2.7 L Test 02/23/17 15:05 02/23/17 16:11 02/23/17 17:10 02/23/17 18:08 Bedside Glucose 154 178 157 137 Test 02/23/17 18:55 02/23/17 20:04 02/23/17 20:10 02/23/17 21:19 Bedside Glucose 148 157 181 Sodium Level 139 Potassium Level 3.8 Chloride Level 113 H Carbon Dioxide Level 21 Anion Gap 9 Blood Urea Nitrogen < 2 L Creatinine 0.51 Glucose Level 161 Calcium Level 8.3 L Test 02/23/17 22:27 02/23/17 23:15 02/24/17 00:14 02/24/17 01:18 Bedside Glucose 166 181 151 146 Test 02/24/17 02:10 02/24/17 03:14 02/24/17 04:13 02/24/17 05:40 Bedside Glucose 128 117 132 105 Test 02/24/17 05:52 02/24/17 06:27 02/24/17 08:29 Sodium Level 143 Potassium Level 3.3 L Chloride Level 114 H Carbon Dioxide Level 22 Anion Gap 10 Blood Urea Nitrogen < 2 L Creatinine 0.48 Glucose Level 106 # Calcium Level 7.9 L Total Bilirubin 0.1 L Direct Bilirubin 0.00 Indirect Bilirubin 0.1 Aspartate Amino Transf (AST/SGOT) 17 Alanine Aminotransferase (ALT/SGPT) 36 Alkaline Phosphatase 79 Total Protein 6.5 Albumin 2.9 L Globulin 3.60 H Albumin/Globulin Ratio 0.80 Bedside Glucose 104 99 Medications Medications Current Medications Ondansetron HCl (Zofran Inj) 4 mg Q6H PRN IV NAUSEA AND/OR VOMITING Last administered on 02/24/17 04:30; Admin Dose 4 MG; Start 02/21/17 at 22:00 Acetaminophen (Tylenol Liquid) 650 mg Q6H PRN PO PAIN LEVEL 1-3 OR FEVER Last administered on 02/23/17 08:05; Admin Dose 650 MG; Start 02/21/17 at 22:00 Morphine Sulfate (morphine) 2 mg Q4H PRN IV PAIN LEVEL 7-10 Last administered on 02/23/17 17:23; Admin Dose 2 MG; Start 02/21/17 at 22:00 Famotidine (Pepcid Iv) 20 mg Q12 IV Last administered on 02/23/17 21:02; Admin Dose 20 MG; Start 02/22/17 at 09:00 Heparin Sodium (Porcine) (Heparin (5000 Units/0.5 ml)) 5,000 unit Q12 SC Last administered on 02/23/17 21:03; Admin Dose 5,000 UNIT; Start 02/22/17 at 09: 00 Dextrose (D50w Syringe) 50 ml Q15M PRN IV For BS 50 or less; Start 02/21/17 at 22:00 Dextrose (D50w Syringe) 25 ml Q15M PRN IV BS between 50-70; Start 02/21/17 at 22:00 Miscellaneous Information 1 ea 1 ea NOTE XX ; Start 02/21/17 at 23:30 Dextrose (D5W) 1,000 ml @ 75 mls/hr IV PRN IV LOW BLOOD GLUCOSE Last administered on 02/22/17 00:01; Admin Dose 75 MLS/HR; Start 02/21/17 at 23:00 Ibuprofen (Motrin) 400 mg Q6H PRN PO pain Last administered on 02/24/17 04:34 ; Admin Dose 400 MG; Start 02/22/17 at 06:00 Acetaminophen 650 mg 650 mg Q6H PRN PO pain Last administered on 02/23/17 00: 36; Admin Dose 650 MG; Start 02/22/17 at 06:00 Ceftriaxone Sodium 50 ml @ 100 mls/hr Q24H IVPB Last administered on 09:10; Admin Dose 100 MLS/HR; Start 02/23/17 at 09:00 Ferric Sodium Gluconate Complex 125 mg/Sodium Chloride 110 ml @ 100 mls/hr Q24H IVPB Last administered on 02/23/17 17:06; Admin Dose 100 MLS/HR; Start 02/22/17 at 17:30; Stop 02/24/17 at 18:35 Lactated Ringer's (Lr) 1,000 ml @ 125 mls/hr Q8H IV Last administered on 02/24 05:47; Admin Dose 125 MLS/HR; Start 02/23/17 at 13:00 Linagliptin (Tradjenta) 5 mg DAILY PO Last administered on 02/23/17 14:20; Admin Dose 5 MG; Start 02/23/17 at 13:30 Dextrose (D50w Syringe) 25 ml Q15M PRN IV Till BS 80 mg/dL or above x2; Start 02/23/17 at 15:30 Dextrose (D50w Syringe) 50 ml Q15M PRN IV Till BS 80 mg/dL or above x2; Start 02/23/17 at 15:30 Topiramate (Topamax) 25 mg BID PO Last administered on 02/23/17 21:02; Admin Dose 25 MG; Start 02/23/17 at 21:00 Diagnostic Test (Pha) (Accu-Chek) 1 ea Q1H XX Last administered on 02/24/17 08:29; Admin Dose 1 EA; Start 02/24/17 at 08:00 ANDRES KAN MD Feb 24, 2017 09:03
[2017-02-24] MEDS ORDERED: DEXTROSE 5% 1,000 ML IV PRN (09:13)
[2017-02-24] MEDS: HEPARIN 5,000 UNIT/0.5 ML VIAL SC SCH ×2 (09:13→21:06)
[2017-02-24] MEDS ORDERED: INSULIN HUMAN REGULAR 100 UNIT in SOD CHLORIDE 0.9% 99 ML IV SCH (09:30)
[2017-02-24] MEDS ORDERED: (Nursing Note) XX SCH (09:30)
[2017-02-24] MEDS ORDERED: POTASSIUM CHLORIDE 250 ML IVPB ONE (09:30)
[2017-02-24] MEDS ORDERED: DEXTROSE 50% 50 ML SYRINGE IV PRN ×2 (09:30)
[2017-02-24] MEDS: INSULIN GLARGINE [LANtus] 3 ML PEN SC SCH (10:50)
[2017-02-24] MEDS: INSULIN ASPART [NOVOLOG] 3 ML PEN SC SCH ×3 (10:51→20:55)
[2017-02-24] MEDS: METHOCARBAMOL 750 MG TAB PO SCH ×2 (13:23→20:57)
--- NOTE | 2017-02-24 14:27 | CONS ---
Date/Time of Note Date/Time of Note DATE: 02/24/17 TIME: 14:20 Assessment/Plan Assessment/Plan Chief Complaint/Hosp Course Assessment: NSTEMI - likely type 2 Diabetic ketoacidosis - resolved, diabetes management per endocrinology Severe sepsis - E. coli urinary tract infection and gram negative sandra bacteremia , improving on antibiotics Acute metabolic encephalopathy - resolved Medication noncompliance Recommendations: -aspirin 81mg daily -check lipid panel -obtain transthoracic echocardiogram, recommend outpatient cardiac stress testing if echocardiogram normal Problems: Consultation Date/Type/Reason Admit Date/Time Feb 21, 2017 at 20:37 Type of Consultation: Cardiology Reason for Consultation elevated troponin Hx of Present Illness The patient is a 41 year-old female who presented with altered mental status. She was found to have diabetic ketoacidosis as well as severe sepsis secondary to urinary tract infection with gram negative sandra bacteremia. Initial EKG showed sinus tachycardia with nonspecific ST segment and T wave changes. Troponins were mildly elevated up to 0.133 and has subsequently normalized. She is now much improved with resolution of the ketoacidosis and normal mental status. She denies chest pain or shortness of breath. She denies a history of heart disease. She reports being diagnosed with diabetes mellitus five years ago , but self-discontinued all medications because she was in denial. 14 point review of systems negative other than per HPI. Eyes: visual change (Blurring vision) Musculoskeletal: no complaints Past Medical History Medical History: diabetes Past Surgical History Past Surgical Hx: no surgical history Family History Significant Family History: no pertinent family hx Social History Alcohol Use: none Smoking Status: Never smoker Drug Use: none Exam/Review of Systems Vital Signs Vitals Vital Signs Date Time Temp Pulse Resp B/P Pulse Ox O2 Delivery O2 Flow Rate FiO2 02/24/17 13:00 66 18 120/86 97 Room Air 02/24/17 12:00 98.4 02/23/17 01:00 2.0 Intake and Output 02/23/17 02/23/17 02/24/17 15:00 23:00 07:00 Intake Total 1426.5 ml 1068.5 ml 642.0 ml Output Total 800 ml 0 ml 950 ml Balance 626.5 ml 1068.5 ml -308.0 ml Exam Constitutional: alert, obese, well developed Psych: nl mood/affect, no complaints Head: atraumatic, normocephalic Eyes: nl conjunctiva, nl lids ENMT: nl external ears & nose, nl nasal mucosa & septum Neck: non-tender, supple, No jvd Respiratory: clear to auscultation, normal air movement Cardiovascular: regular rate and rhythm Gastrointestinal: non-tender, soft Musculoskeletal: nl extremities to inspection Extremities: No clubbing, No cyanosis, No edema Neurological: nl mental status, nl speech Skin: nl turgor Results Result Diagram: 02/23/17 0944 02/24/17 0552 Results 24 hrs Laboratory Tests Test 02/23/17 15:05 02/23/17 16:11 02/23/17 17:10 02/23/17 18:08 Bedside Glucose 154 178 157 137 Test 02/23/17 18:55 02/23/17 20:04 02/23/17 20:10 02/23/17 21:19 Bedside Glucose 148 157 181 Sodium Level 139 Potassium Level 3.8 Chloride Level 113 H Carbon Dioxide Level 21 Anion Gap 9 Blood Urea Nitrogen < 2 L Creatinine 0.51 Glucose Level 161 Calcium Level 8.3 L Test 02/23/17 22:27 02/23/17 23:15 02/24/17 00:14 02/24/17 01:18 Bedside Glucose 166 181 151 146 Test 02/24/17 02:10 02/24/17 03:14 02/24/17 04:13 02/24/17 05:40 Bedside Glucose 128 117 132 105 Test 02/24/17 05:52 02/24/17 06:27 02/24/17 08:29 02/24/17 10:42 Sodium Level 143 Potassium Level 3.3 L Chloride Level 114 H Carbon Dioxide Level 22 Anion Gap 10 Blood Urea Nitrogen < 2 L Creatinine 0.48 Glucose Level 106 # Calcium Level 7.9 L Total Bilirubin 0.1 L Direct Bilirubin 0.00 Indirect Bilirubin 0.1 Aspartate Amino Transf (AST/SGOT) 17 Alanine Aminotransferase (ALT/SGPT) 36 Alkaline Phosphatase 79 Total Protein 6.5 Albumin 2.9 L Globulin 3.60 H Albumin/Globulin Ratio 0.80 Bedside Glucose 104 99 106 Test 02/24/17 12:09 Bedside Glucose 104 Medications Medications Current Medications Ondansetron HCl (Zofran Inj) 4 mg Q6H PRN IV NAUSEA AND/OR VOMITING Last administered on 02/24/17t 04:30; Admin Dose 4 MG; Start 02/21/17 at 22:00 Acetaminophen (Tylenol Liquid) 650 mg Q6H PRN PO PAIN LEVEL 1-3 OR FEVER Last administered on 02/23/17 08:05; Admin Dose 650 MG; Start 02/21/17 at 22:00 Morphine Sulfate (morphine) 2 mg Q4H PRN IV PAIN LEVEL 7-10 Last administered on 02/23/17 17:23; Admin Dose 2 MG; Start 02/21/17 at 22:00 Famotidine (Pepcid Iv) 20 mg Q12 IV Last administered on 02/24/17 09:02; Admin Dose 20 MG; Start 02/22/17 at 09:00 Heparin Sodium (Porcine) (Heparin (5000 Units/0.5 ml)) 5,000 unit Q12 SC Last administered on 02/24/17 09:13; Admin Dose 5,000 UNIT; Start 02/22/17 at 09: 00 Dextrose (D50w Syringe) 50 ml Q15M PRN IV For BS 50 or less; Start 02/21/17 at 22:00 Dextrose (D50w Syringe) 25 ml Q15M PRN IV BS between 50-70; Start 02/21/17 at 22:00 Ibuprofen (Motrin) 400 mg Q6H PRN PO pain Last administered on 02/24/17 04:34 ; Admin Dose 400 MG; Start 02/22/17 at 06:00 Acetaminophen 650 mg 650 mg Q6H PRN PO pain Last administered on 02/24/17 09: 02; Admin Dose 650 MG; Start 02/22/17 at 06:00 Ceftriaxone Sodium 50 ml @ 100 mls/hr Q24H IVPB Last administered on 09:02; Admin Dose 100 MLS/HR; Start 02/23/17 at 09:00 Ferric Sodium Gluconate Complex 125 mg/Sodium Chloride 110 ml @ 100 mls/hr Q24H IVPB Last administered on 02/23/17 17:06; Admin Dose 100 MLS/HR; Start 02/22/17 at 17:30; Stop 02/24/17 at 18:35 Lactated Ringer's (Lr) 1,000 ml @ 25 mls/hr Q24H IV Last administered on 02/24 05:47; Admin Dose 125 MLS/HR; Start 02/23/17 at 13:00 Linagliptin (Tradjenta) 5 mg DAILY PO Last administered on 02/24/17 09:02; Admin Dose 5 MG; Start 02/23/17 at 13:30 Topiramate (Topamax) 25 mg BID PO Last administered on 02/24/17 09:02; Admin Dose 25 MG; Start 02/23/17 at 21:00 Diagnostic Test (Pha) (Accu-Chek) 1 ea 02 XX ; Start 02/25/17 at 02:00 Miscellaneous Information 1 ea 1 ea NOTE XX ; Start 02/24/17 at 09:30 Dextrose (D5W) 1,000 ml @ 75 mls/hr [id number] PRN IV LOW BLOOD GLUCOSE; Start at 09:13 Dextrose (D50w Syringe) 25 ml Q15M PRN IV Till BS 80 mg/dL or above x2; Start 02/24/17 at 09:30 Dextrose (D50w Syringe) 50 ml Q15M PRN IV Till BS 80 mg/dL or above x2; Start 02/24/17 at 09:30 Methocarbamol (Robaxin) 1,500 mg TID PO Last administered on 02/24/17 13:23; Admin Dose 1,500 MG; Start 02/24/17 at 13:00 Insulin Glargine (Lantus) 6 unit DAILY@08 SC Last administered on 02/24/17 10 :50; Admin Dose 6 UNIT; Start 02/24/17 at 09:30 JULIA VAUGHN MD Feb 24, 2017 14:27
--- NOTE | 2017-02-24 14:58 | PN ---
Date/Time of Note Date/Time of Note DATE: 02/24/17 TIME: 14:56 Assessment/Plan VTE Prophylaxis VTE Prophylaxis Intervention: heparin Lines/Catheters IV Catheter Type (from Nrs): Peripheral IV Urinary Cath still in place: No Assessment/Plan Chief Complaint/Hosp Course Patient is a 41-year-old female with a past medical history of diabetes noncompliant on medication presents with DKA Assessment and plan Diabetic ketoacidosis, resolved Acute encephalopathy, likely secondary to DKA, resolved headache, migraines neck strain Hypokalemia, resolved Anion gap metabolic acidosis, resolving Low iron Elevated troponin Obesity Medical noncompliance electrolyte derangement -out of dka, on insulin and orals -Patient noncompliant on Actos, endocrine has been consulted, will titrate oral medications -Elevated troponin, given patient's risk factors, cardiology has been consulted. suggest echo and outpatient stress if normal. -Correct electrolytes as needed -Diabetes counselor as needed -iron supplementation -topamax for migraine, robaxin for muscle relaxation -started trajenta per endocrine More than 40 minutes was spent on this encounter Problems: Subjective 24 Hr Interval Summary Free Text/Dictation still complains of headache and neck pain. Exam/Review of Systems Vital Signs Vitals Vital Signs Date Time Temp Pulse Resp B/P Pulse Ox O2 Delivery O2 Flow Rate FiO2 02/24/17 13:00 66 18 120/86 97 Room Air 02/24/17 12:00 98.4 02/23/17 01:00 2.0 Intake and Output 02/23/17 02/23/17 02/24/17 15:00 23:00 07:00 Intake Total 1426.5 ml 1068.5 ml 642.0 ml Output Total 800 ml 0 ml 950 ml Balance 626.5 ml 1068.5 ml -308.0 ml Exam Physical exam General: Patient is laying in bed and answers questions appropriately Mentation: Patient is alert and oriented 4, Head: Normocephalic atraumatic Eyes: EOMI, pupils reactive to light Neck: Supple, mildly tender with deep manipulation, midline Respiratory: Clear to auscultation bilaterally Cardiovascular: regular rate, no obvious murmurs Gastrointestinal: non-tender to palpation, bowel sounds heard. Neurological: Moves all extremities spontaneously Skin: No new skin lesions Results Result Diagram: 02/23/17 0944 02/24/17 0552 Results 24 hrs Laboratory Tests Test 02/23/17 15:05 02/23/17 16:11 02/23/17 17:10 02/23/17 18:08 Bedside Glucose 154 178 157 137 Test 02/23/17 18:55 02/23/17 20:04 02/23/17 20:10 02/23/17 21:19 Bedside Glucose 148 157 181 Sodium Level 139 Potassium Level 3.8 Chloride Level 113 H Carbon Dioxide Level 21 Anion Gap 9 Blood Urea Nitrogen < 2 L Creatinine 0.51 Glucose Level 161 Calcium Level 8.3 L Test 02/23/17 22:27 02/23/17 23:15 02/24/17 00:14 02/24/17 01:18 Bedside Glucose 166 181 151 146 Test 02/24/17 02:10 02/24/17 03:14 02/24/17 04:13 02/24/17 05:40 Bedside Glucose 128 117 132 105 Test 02/24/17 05:52 02/24/17 06:27 02/24/17 08:29 02/24/17 10:42 Sodium Level 143 Potassium Level 3.3 L Chloride Level 114 H Carbon Dioxide Level 22 Anion Gap 10 Blood Urea Nitrogen < 2 L Creatinine 0.48 Glucose Level 106 # Calcium Level 7.9 L Total Bilirubin 0.1 L Direct Bilirubin 0.00 Indirect Bilirubin 0.1 Aspartate Amino Transf (AST/SGOT) 17 Alanine Aminotransferase (ALT/SGPT) 36 Alkaline Phosphatase 79 Total Protein 6.5 Albumin 2.9 L Globulin 3.60 H Albumin/Globulin Ratio 0.80 Bedside Glucose 104 99 106 Test 02/24/17 12:09 Bedside Glucose 104 Medications Medications Current Medications Ondansetron HCl (Zofran Inj) 4 mg Q6H PRN IV NAUSEA AND/OR VOMITING Last administered on 02/24/17 04:30; Admin Dose 4 MG; Start 02/21/17 at 22:00 Acetaminophen (Tylenol Liquid) 650 mg Q6H PRN PO PAIN LEVEL 1-3 OR FEVER Last administered on 02/23/17 08:05; Admin Dose 650 MG; Start 02/21/17 at 22:00 Morphine Sulfate (morphine) 2 mg Q4H PRN IV PAIN LEVEL 7-10 Last administered on 02/23/17 17:23; Admin Dose 2 MG; Start 02/21/17 at 22:00 Famotidine (Pepcid Iv) 20 mg Q12 IV Last administered on 02/24/17 09:02; Admin Dose 20 MG; Start 02/22/17 at 09:00 Heparin Sodium (Porcine) (Heparin (5000 Units/0.5 ml)) 5,000 unit Q12 SC Last administered on 02/24/17 09:13; Admin Dose 5,000 UNIT; Start 02/22/17 at 09: 00 Dextrose (D50w Syringe) 50 ml Q15M PRN IV For BS 50 or less; Start 02/21/17 at 22:00 Dextrose (D50w Syringe) 25 ml Q15M PRN IV BS between 50-70; Start 02/21/17 at 22:00 Ibuprofen (Motrin) 400 mg Q6H PRN PO pain Last administered on 02/24/17 04:34 ; Admin Dose 400 MG; Start 02/22/17 at 06:00 Acetaminophen 650 mg 650 mg Q6H PRN PO pain Last administered on 02/24/17 09: 02; Admin Dose 650 MG; Start 02/22/17 at 06:00 Ceftriaxone Sodium 50 ml @ 100 mls/hr Q24H IVPB Last administered on 09:02; Admin Dose 100 MLS/HR; Start 02/23/17 at 09:00 Ferric Sodium Gluconate Complex 125 mg/Sodium Chloride 110 ml @ 100 mls/hr Q24H IVPB Last administered on 02/23/17 17:06; Admin Dose 100 MLS/HR; Start 02/22/17 at 17:30; Stop 02/24/17 at 18:35 Lactated Ringer's (Lr) 1,000 ml @ 25 mls/hr Q24H IV Last administered on 02/24 05:47; Admin Dose 125 MLS/HR; Start 02/23/17 at 13:00 Linagliptin (Tradjenta) 5 mg DAILY PO Last administered on 02/24/17 09:02; Admin Dose 5 MG; Start 02/23/17 at 13:30 Topiramate (Topamax) 25 mg BID PO Last administered on 02/24/17 09:02; Admin Dose 25 MG; Start 02/23/17 at 21:00 Diagnostic Test (Pha) (Accu-Chek) 1 ea 02 XX ; Start 02/25/17 at 02:00 Miscellaneous Information 1 ea 1 ea NOTE XX ; Start 02/24/17 at 09:30 Dextrose (D5W) 1,000 ml @ 75 mls/hr [id number] PRN IV LOW BLOOD GLUCOSE; Start at 09:13 Dextrose (D50w Syringe) 25 ml Q15M PRN IV Till BS 80 mg/dL or above x2; Start 02/24/17 at 09:30 Dextrose (D50w Syringe) 50 ml Q15M PRN IV Till BS 80 mg/dL or above x2; Start 02/24/17 at 09:30 Methocarbamol (Robaxin) 1,500 mg TID PO Last administered on 02/24/17 13:23; Admin Dose 1,500 MG; Start 02/24/17 at 13:00 Insulin Glargine (Lantus) 6 unit DAILY@08 SC Last administered on 02/24/17 10 :50; Admin Dose 6 UNIT; Start 02/24/17 at 09:30 Aspirin (Halfprin) 81 mg DAILY PO ; Start 02/24/17 at 14:30 DIEUDONNE BOYER Feb 24, 2017 14:58
[2017-02-24] MEDS: ASPIRIN (EC) 81 MG TAB PO SCH (16:20)
[2017-02-24] MEDS: SOD FERRIC GLUC COMPLX 125 MG in SOD CHLORIDE 0.9% 100 ML IVPB SCH (17:06)
[2017-02-24] MEDS ORDERED: GLUCOSE GEL 15 GRAM TUBE BUCCAL PRN (17:30)
[2017-02-24] MEDS ORDERED: GLUCAGON 1 MG INJ IM PRN (17:30)
[2017-02-24] MEDS ORDERED: GLUCOSE GEL 15 GRAM TUBE PO PRN ×2 (17:30)
[2017-02-24] MEDS: IBUPROFEN 400 MG TAB PO PRN (17:42)
[2017-02-25] MEDS: ACCU-CHEK XX SCH (01:37)
[2017-02-25 02:00] VITALS: BP 104/51; RESP 20
[2017-02-25 02:15] LABS: SCRET 0.48 mg/dl (0.44-1.00)
[2017-02-25] MEDS: LACTATED RINGER'S 1,000 ML IV SCH (05:14)
[2017-02-25] MEDS: IBUPROFEN 400 MG TAB PO PRN ×2 (05:59→15:39)
[2017-02-25 07:20] LABS: ABNORMAL IP MESSAGE 1; BASOPHILS % 0.3 % (0.0-2.0); EOSINOPHILS # 0.1 10^3/ul (0.0-0.5); EOSINOPHILS % 1.5 % (0.0-7.0); HEMATOCRIT 26.4 % (37.0-47.0); HEMOGLOBIN 7.6 g/dl (12.0-16.0); LYMPHOCYTES # 2.1 10^3/ul (0.8-2.9); LYMPHOCYTES % 32.3 % (15.0-51.0); MEAN CORPUSCULAR HEMOGLOBIN 21.1 pg (29.0-33.0); MEAN CORPUSCULAR HGB CONC 28.8 g/dl (32.0-37.0); MEAN CORPUSCULAR VOLUME 73.3 fl (82.0-101.0); MEAN PLATELET VOLUME 9.2 fl (7.4-10.4); MONOCYTE # 0.5 10^3/ul (0.3-0.9); MONOCYTES % 6.8 % (0.0-11.0); NEUTROPHIL # 3.9 10^3/ul (1.6-7.5); PLATELET COUNT 279 10^3/UL (140-415); RED CELL DISTRIBUTION WIDTH 17.7 % (11.5-14.5); WHITE BLOOD COUNT 6.6 10^3/ul (4.8-10.8)
[2017-02-25 07:22] LABS: POSITIVE DIFF @See below
[2017-02-25 07:39] LABS: CALCIUM 7.9 mg/dl (8.4-10.2); CREATININE 0.55 mg/dl (0.44-1.00); MAGNESIUM 1.6 mg/dl (1.7-2.5); PHOSPHORUS 3.8 mg/dl (2.5-4.9); POTASSIUM 3.3 mmol/L (3.5-5.1)
[2017-02-25 07:53] VITALS: BP 127/93; RESP 18
[2017-02-25] MEDS ORDERED: INSULIN GLARGINE [LANtus] 3 ML PEN SC SCH (08:00)
[2017-02-25] MEDS: INSULIN ASPART [NOVOLOG] 3 ML PEN SC SCH ×4 (08:15→21:00)
[2017-02-25] MEDS: INSULIN GLARGINE [LANtus] 3 ML PEN SC SCH (08:45)
[2017-02-25] MEDS: FAMOTIDINE 20 MG INJ IV SCH (08:47)
[2017-02-25] MEDS: TOPIRAMATE 25 MG TAB PO SCH ×2 (08:48→21:47)
[2017-02-25] MEDS: ASPIRIN (EC) 81 MG TAB PO SCH (08:48)
[2017-02-25] MEDS: LINAGLIPTIN 5 MG TABLET PO SCH (08:51)
[2017-02-25] MEDS: CEFTRIAXONE 2 GM/NS 50 ML IVPB SCH (08:53)
[2017-02-25] MEDS: HEPARIN 5,000 UNIT/0.5 ML VIAL SC SCH ×2 (08:57→21:57)
[2017-02-25] MEDS: METHOCARBAMOL 750 MG TAB PO SCH ×3 (09:02→21:48)
[2017-02-25] MEDS ORDERED: POTASSIUM CHLORIDE 20 MEQ POWDER FOR ORAL SOLN PO ONE (10:30)
[2017-02-25] MEDS ORDERED: DIPHENHYDRAMINE 50 MG INJ IV ONE (10:30)
[2017-02-25] MEDS ORDERED: METOCLOPRAMIDE 10 MG INJ IV ONE (10:30)
[2017-02-25] MEDS ORDERED: POTASSIUM CHLORIDE (SR) 20 MEQ TAB PO SCH (12:00)
[2017-02-25] MEDS ORDERED: MAGNESIUM SULFATE 1 GM/D5W 100 ML IVPB SCH (12:00)
--- NOTE | 2017-02-25 12:09 | RADRPT ---
Echocardiogram Report Patient Name: MICHAELLE LACEY Gender: Female Date: 1975 Study Date: 24-Feb-2017 Distribution Sales Representative: Shahram [facility] Location: [address] Ref. Physician: JULIA JARRELL Quality: Adequate Procedures: Transthoracic echocardiogram with complete 2D, M-Mode, and doppler examination. Indications: Elevated Troponin. 2D/M Mode Doppler Measurement Value Normal Ranges Measurement Value Normal Ranges LVIDd 2D 4.9 3.5 - 5.6 cm AV Peak [place] 1.6 m/sec LVIDs 2D 3.4 2.1 - 4.1 cm AV Peak PG 10.0 mmHg FS 2D 31.4 % LVOT Peak [place] 1.2 m/sec LVPWd 2D 1.1 0.6 - 1.1 cm LVOT Peak PG 6.0 mmHg IVSd 2D 1.1 0.6 - 1.1 cm MV E Peak [place] 1.0 m/sec IVS/LVPW 2D 1.0 MV A Peak [place] 0.9 m/sec AoR Diam 2D 2.5 2.0 - 3.7 cm MV E/A 1.2 LA/Ao 2D 1 0 - 1 MV Decel Time 218 msec EDV 2D 118.0 cm3 MV E/A 1.2 ESV 2D 37.9 cm3 MR Peak PG 111.0 mmHg LA Dimen 2D 3.7 2.3 - 4.0 cm MR Peak [place] 5.3 m/sec TR Peak [place] 2.6 m/sec TR Peak PG 26.0 mmHg RVSP 34.0 mmHg Findings Left Ventricle: Normal left ventricular systolic function. Normal left ventricular cavity size. Left ventricular wall thickness upper limits of normal. Ejection fraction is visually estimated at 6065 %. Abnormal Diastolic Function. Right Ventricle: Normal right ventricular size. Normal right ventricular systolic function. Left Atrium: The left atrium is normal in size. Right Atrium: The right atrium is normal in size. Mitral Valve: Mild mitral leaflet calcification. Mild mitral annular calcification. Mild mitral valve regurgitation. Aortic Valve: Normal appearance of the aortic valve. No significant aortic stenosis or insufficiency. Tricuspid Valve: Normal appearance of the tricuspid valve. Estimated peak PA systolic pressure 34 mmHg. There is mild tricuspid regurgitation. Pulmonic Valve: Pulmonic valve not well visualized. There is trace pulmonic regurgitation. Pericardium: Normal pericardium with no significant pericardial effusion. Aorta: Normal aortic root. IVC: Normal size with poor respiratory collapse consistent with elevated right atrial pressure. Conclusions 1.The left ventricle is normal in size and systolic function. 2.Estimated left ventricular ejection fraction of 60-65%. Electronically Signed By: Julia Jarrell 25-Feb-2017 12:08:33 -0700 Patient Name: MCIHAELLE LACEY Study Date: 24-Feb-2017 [id number]
--- NOTE | 2017-02-25 12:23 | PN ---
Date/Time of Note Date/Time of Note DATE: 02/25/17 TIME: 12:21 Assessment/Plan VTE Prophylaxis VTE Prophylaxis Intervention: ambulation Lines/Catheters IV [facility] Peripheral IV Urinary Cath still in place: No Assessment/Plan Chief Complaint/Hosp Course Patient is a 41-year-old female with a past medical history of diabetes noncompliant on medication presents with DKA Assessment and plan Diabetic ketoacidosis, resolved Acute encephalopathy, likely secondary to DKA, resolved headache, migraines neck strain Hypokalemia, resolved Anion gap metabolic acidosis, resolving Low iron Elevated troponin Obesity Medical noncompliance electrolyte derangement -Patient has ecoli seen on blood cultures, repeat negative for 1 day. transition to oral abx today, based on sensitivities, levaquin for total of 14 days -out of dka, on insulin and orals -Patient noncompliant on Actos, endocrine has been consulted, will titrate oral medications -Elevated troponin, given patient's risk factors, cardiology has been consulted. suggest echo and outpatient stress if normal. -Correct electrolytes as needed -Diabetes counselor as needed -iron supplementation -topamax for migraine, robaxin for muscle relaxation -started trajenta per endocrine DISPO: wait until 48 hrs of 2nd blood culture negative, observe how patient does on new abx for intolerance. DC likely tomorrow if tolerating abx well. Problems: Subjective 24 Hr Interval Summary Free Text/Dictation headache as resolved Exam/Review of Systems Vital Signs Vitals Vital Signs Date Time Temp Pulse Resp B/P Pulse Ox O2 Delivery O2 Flow Rate FiO2 02/25/17 07:53 98.9 60 18 127/93 93 02/24/17 23:15 21 02/24/17 16:00 Room Air 02/23/17 01:00 2.0 Intake and Output 02/24/17 02/24/17 02/25/17 15:00 23:00 07:00 Intake Total 626.65 ml 435 ml 390 ml Output Total 100 ml 500 ml 1000 ml Balance 526.65 ml -65 ml -610 ml Exam Physical exam General: Patient is laying in bed and answers questions appropriately Mentation: Patient is alert and oriented 4, Head: Normocephalic atraumatic Eyes: EOMI, pupils reactive to light Neck: Supple, mildly tender with deep manipulation, midline Respiratory: Clear to auscultation bilaterally Cardiovascular: regular rate, no obvious murmurs Gastrointestinal: non-tender to palpation, bowel sounds heard. Neurological: Moves all extremities spontaneously Skin: No new skin lesions Results Result Diagram: 02/25/17 0632 02/25/17 0632 Results 24 hrs Laboratory Tests Test 02/24/17 17:21 02/24/17 20:54 02/25/17 00:01 02/25/17 06:32 Bedside Glucose 122 129 Urine Random Creatinine 43.01 Urine Collection Duration 24 Urine Total Volume 24 Hours 2000 Urine Creatinine Timed 24 Creatinine Clearance 124.4 Urine Total Volume (Protein) 2000 Urine Total Protein 24 Hour 380.0 H White Blood Count 6.6 Red Blood Count 3.60 L Hemoglobin 7.6 L Hematocrit 26.4 L Mean Corpuscular Volume 73.3 L Mean Corpuscular Hemoglobin 21.1 L Mean Corpuscular Hemoglobin Concent 28.8 L Red Cell Distribution Width 17.7 H Platelet Count 279 Mean Platelet Volume 9.2 Neutrophils % 58.0 Lymphocytes % 32.3 Monocytes % 6.8 Eosinophils % 1.5 Basophils % 0.3 Nucleated Red Blood Cells % 0.0 Neutrophils # 3.9 Lymphocytes # 2.1 Monocytes # 0.5 Eosinophils # 0.1 Basophils # 0.0 Nucleated Red Blood Cells # 0.0 Sodium Level 142 Potassium Level 3.3 L Chloride Level 112 H Carbon Dioxide Level 21 Anion Gap 12 Blood Urea Nitrogen 3 L Creatinine 0.55 Glucose Level 114 Calcium Level 7.9 L Phosphorus Level 3.8 Magnesium Level 1.6 L Triglycerides Level 182 H Cholesterol Level 95 L LDL Cholesterol, Calculated 40 HDL Cholesterol 19 L Cholesterol/HDL Ratio 5.0 Test 02/25/17 08:02 02/25/17 12:05 Bedside Glucose 120 135 Medications Medications Current Medications Ondansetron HCl (Zofran Inj) 4 mg Q6H PRN IV NAUSEA AND/OR VOMITING Last administered on 02/24/17 04:30; Admin Dose 4 MG; Start 02/21/17 at 22:00 Acetaminophen (Tylenol Liquid) 650 mg Q6H PRN PO PAIN LEVEL 1-3 OR FEVER Last administered on 02/23/17 08:05; Admin Dose 650 MG; Start 02/21/17 at 22:00 Morphine Sulfate (morphine) 2 mg Q4H PRN IV PAIN LEVEL 7-10 Last administered on 02/23/17 17:23; Admin Dose 2 MG; Start 02/21/17 at 22:00 Famotidine (Pepcid Iv) 20 mg Q12 IV Last administered on 02/25/17 08:47; Admin Dose 20 MG; Start 02/22/17 at 09:00 Heparin Sodium (Porcine) (Heparin (5000 Units/0.5 ml)) 5,000 unit Q12 SC Last administered on 02/25/17 08:57; Admin Dose 5,000 UNIT; Start 02/22/17 at 09: 00 Acetaminophen 650 mg 650 mg Q6H PRN PO pain Last administered on 02/24/17 09: 02; Admin Dose 650 MG; Start 02/22/17 at 06:00 Ceftriaxone Sodium 50 ml @ 100 mls/hr Q24H IVPB Last administered on 08:53; Admin Dose 100 MLS/HR; Start 02/23/17 at 09:00 Lactated Ringer's (Lr) 1,000 ml @ 25 mls/hr Q24H IV Last administered on 02/25 05:14; Admin Dose 25 MLS/HR; Start 02/23/17 at 13:00 Linagliptin (Tradjenta) 5 mg DAILY PO Last administered on 02/25/17 08:51; Admin Dose 5 MG; Start 02/23/17 at 13:30 Topiramate (Topamax) 25 mg BID PO Last administered on 02/25/17 08:48; Admin Dose 25 MG; Start 02/23/17 at 21:00 Diagnostic Test (Pha) (Accu-Chek) 1 ea 02 XX ; Start 02/25/17 at 02:00 Miscellaneous Information 1 ea 1 ea NOTE XX ; Start 02/24/17 at 09:30 Dextrose (D5W) 1,000 ml @ 75 mls/hr [id number] PRN IV LOW BLOOD GLUCOSE; Start at 09:13 Dextrose (D50w Syringe) 25 ml Q15M PRN IV Till BS 80 mg/dL or above x2; Start 02/24/17 at 09:30 Dextrose (D50w Syringe) 50 ml Q15M PRN IV Till BS 80 mg/dL or above x2; Start 02/24/17 at 09:30 Methocarbamol (Robaxin) 1,500 mg TID PO Last administered on 02/25/17 12:09; Admin Dose 1,500 MG; Start 02/24/17 at 13:00 Insulin Glargine (Lantus) 6 unit DAILY@08 SC Last administered on 02/25/17 08 :45; Admin Dose 6 UNIT; Start 02/24/17 at 09:30 Aspirin (Halfprin) 81 mg DAILY PO Last administered on 02/25/17 08:48; Admin Dose 81 MG; Start 02/24/17 at 14:30 Ibuprofen (Motrin) 400 mg Q6H PRN PO PAIN Last administered on 02/25/17 05:59 ; Admin Dose 400 MG; Start 02/24/17 at 17:04 Miscellaneous Information 1 ea NOTE XX ; Start 02/24/17 at 17:30 Glucose (Glutose) 15 gm Q15M PRN PO DECREASED GLUCOSE; Start 02/24/17 at 17:30 Glucose (Glutose) 22.5 gm Q15M PRN PO DECREASED GLUCOSE; Start 02/24/17 at 17: 30 Glucagon (Glucagen) 1 mg Q15M PRN IM DECREASED GLUCOSE; Start 02/24/17 at 17: 30 Glucose 15 gm 15 gm Q15M PRN BUCCAL DECREASED GLUCOSE; Start 02/24/17 at 17:30 Magnesium Sulfate/ Dextrose (Magnesium Sulfate 1 Gm/D5W) 100 ml @ 100 mls/hr ONCE IVPB Last administered on 02/25/17 11:33; Admin Dose 100 MLS/HR; Start 02/25/17 at 12:00; Stop 02/25/17 at 12:59 Potassium Chloride (Klor-Con 20) 40 meq ONCE PO Last administered on 12:07; Admin Dose 40 MEQ; Start 02/25/17 at 12:00; Stop 02/25/17 at 16:00 DIEUDONNE BOYER Feb 25, 2017 12:23
--- NOTE | 2017-02-25 12:48 | CONS ---
Date/Time of Note Date/Time of Note DATE: 02/25/17 TIME: 12:46 Assessment/Plan Assessment/Plan Chief Complaint/Hosp Course Assessment: NSTEMI - likely type 2 Diabetic ketoacidosis - resolved, diabetes management per endocrinology Severe sepsis - E. coli urinary tract infection and bacteremia, improving on antibiotics Acute metabolic encephalopathy - resolved Medication noncompliance Recommendations: -continue aspirin 81mg daily -LDL 40, no statin -echocardiogram showed normal LVEF 60-65% -no additional cardiac work up at this time, cardiac stress testing as outpatient Problems: Consultation Date/Type/Reason Admit Date/Time Feb 21, 2017 at 20:37 Initial Consult Date 02/22/17 Type of Consultation: Cardiology 24 HR Interval Summary Free Text/Dictation Has been transferred out of ICU. Denies chest pain or shortness of breath. Detailed Summary Additional Comments 14 point review of systems without changes. Exam/Review of Systems Vital Signs Vitals Vital Signs Date Time Temp Pulse Resp B/P Pulse Ox O2 Delivery O2 Flow Rate FiO2 02/25/17 07:53 98.9 60 18 127/93 93 02/24/17 23:15 21 02/24/17 16:00 Room Air 02/23/17 01:00 2.0 Intake and Output 02/24/17 02/24/17 02/25/17 15:00 23:00 07:00 Intake Total 626.65 ml 435 ml 390 ml Output Total 100 ml 500 ml 1000 ml Balance 526.65 ml -65 ml -610 ml Exam Constitutional: alert, obese, well developed Psych: nl mood/affect, no complaints Head: atraumatic, normocephalic Eyes: nl conjunctiva, nl lids ENMT: nl external ears & nose, nl nasal mucosa & septum Neck: non-tender, supple, No jvd Respiratory: clear to auscultation, normal air movement Cardiovascular: regular rate and rhythm Gastrointestinal: non-tender, soft Musculoskeletal: nl extremities to inspection Extremities: No clubbing, No cyanosis, No edema Neurological: nl mental status, nl speech Skin: nl turgor Results Result Diagram: 02/25/17 0632 02/25/17 0632 Results 24 hrs Laboratory Tests Test 02/24/17 17:21 02/24/17 20:54 02/25/17 00:01 02/25/17 06:32 Bedside Glucose 122 129 Urine Random Creatinine 43.01 Urine Collection Duration 24 Urine Total Volume 24 Hours 1999 Urine Creatinine Timed 24 Creatinine Clearance 124.4 Urine Total Volume (Protein) 2000 Urine Total Protein 24 Hour 380.0 H White Blood Count 6.6 Red Blood Count 3.60 L Hemoglobin 7.6 L Hematocrit 26.4 L Mean Corpuscular Volume 73.3 L Mean Corpuscular Hemoglobin 21.1 L Mean Corpuscular Hemoglobin Concent 28.8 L Red Cell Distribution Width 17.7 H Platelet Count 279 Mean Platelet Volume 9.2 Neutrophils % 58.0 Lymphocytes % 32.3 Monocytes % 6.8 Eosinophils % 1.5 Basophils % 0.3 Nucleated Red Blood Cells % 0.0 Neutrophils # 3.9 Lymphocytes # 2.1 Monocytes # 0.5 Eosinophils # 0.1 Basophils # 0.0 Nucleated Red Blood Cells # 0.0 Sodium Level 142 Potassium Level 3.3 L Chloride Level 112 H Carbon Dioxide Level 21 Anion Gap 12 Blood Urea Nitrogen 3 L Creatinine 0.55 Glucose Level 114 Calcium Level 7.9 L Phosphorus Level 3.8 Magnesium Level 1.6 L Triglycerides Level 182 H Cholesterol Level 95 L LDL Cholesterol, Calculated 40 HDL Cholesterol 19 L Cholesterol/HDL Ratio 5.0 Test 02/25/17 08:02 02/25/17 12:05 Bedside Glucose 120 135 Medications Medications Current Medications Ondansetron HCl (Zofran Inj) 4 mg Q6H PRN IV NAUSEA AND/OR VOMITING Last administered on 02/24/17 04:30; Admin Dose 4 MG; Start 02/21/17 at 22:00 Acetaminophen (Tylenol Liquid) 650 mg Q6H PRN PO PAIN LEVEL 1-3 OR FEVER Last administered on 02/23/17 08:05; Admin Dose 650 MG; Start 02/21/17 at 22:00 Morphine Sulfate (morphine) 2 mg Q4H PRN IV PAIN LEVEL 7-10 Last administered on 02/23/17 17:23; Admin Dose 2 MG; Start 02/21/17 at 22:00 Famotidine (Pepcid Iv) 20 mg Q12 IV Last administered on 02/25/17 08:47; Admin Dose 20 MG; Start 02/22/17 at 09:00 Heparin Sodium (Porcine) (Heparin (5000 Units/0.5 ml)) 5,000 unit Q12 SC Last administered on 02/25/17 08:57; Admin Dose 5,000 UNIT; Start 02/22/17 at 09: 00 Acetaminophen 650 mg 650 mg Q6H PRN PO pain Last administered on 02/24/17 09: 02; Admin Dose 650 MG; Start 02/22/17 at 06:00 Lactated Ringer's (Lr) 1,000 ml @ 25 mls/hr Q24H IV Last administered on 02/25 05:14; Admin Dose 25 MLS/HR; Start 02/23/17 at 13:00 Linagliptin (Tradjenta) 5 mg DAILY PO Last administered on 02/25/17 08:51; Admin Dose 5 MG; Start 02/23/17 at 13:30 Topiramate (Topamax) 25 mg BID PO Last administered on 02/25/17 08:48; Admin Dose 25 MG; Start 02/23/17 at 21:00 Diagnostic Test (Pha) (Accu-Chek) 1 ea 02 XX ; Start 02/25/17 at 02:00 Miscellaneous Information 1 ea 1 ea NOTE XX ; Start 02/24/17 at 09:30 Dextrose (D5W) 1,000 ml @ 75 mls/hr [id number] PRN IV LOW BLOOD GLUCOSE; Start at 09:13 Dextrose (D50w Syringe) 25 ml Q15M PRN IV Till BS 80 mg/dL or above x2; Start 02/24/17 at 09:30 Dextrose (D50w Syringe) 50 ml Q15M PRN IV Till BS 80 mg/dL or above x2; Start 02/24/17 at 09:30 Methocarbamol (Robaxin) 1,500 mg TID PO Last administered on 02/25/17 12:09; Admin Dose 1,500 MG; Start 02/24/17 at 13:00 Insulin Glargine (Lantus) 6 unit DAILY@08 SC Last administered on 02/25/17 08 :45; Admin Dose 6 UNIT; Start 02/24/17 at 09:30 Aspirin (Halfprin) 81 mg DAILY PO Last administered on 02/25/17 08:48; Admin Dose 81 MG; Start 02/24/17 at 14:30 Ibuprofen (Motrin) 400 mg Q6H PRN PO PAIN Last administered on 02/25/17 05:59 ; Admin Dose 400 MG; Start 02/24/17 at 17:04 Miscellaneous Information 1 ea NOTE XX ; Start 02/24/17 at 17:30 Glucose (Glutose) 15 gm Q15M PRN PO DECREASED GLUCOSE; Start 02/24/17 at 17:30 Glucose (Glutose) 22.5 gm Q15M PRN PO DECREASED GLUCOSE; Start 02/24/17 at 17: 30 Glucagon (Glucagen) 1 mg Q15M PRN IM DECREASED GLUCOSE; Start 02/24/17 at 17: 30 Glucose 15 gm 15 gm Q15M PRN BUCCAL DECREASED GLUCOSE; Start 02/24/17 at 17:30 Magnesium Sulfate/ Dextrose (Magnesium Sulfate 1 Gm/D5W) 100 ml @ 100 mls/hr ONCE IVPB Last administered on 02/25/17 11:33; Admin Dose 100 MLS/HR; Start 02/25/17 at 12:00; Stop 02/25/17 at 12:59 Potassium Chloride (Klor-Con 20) 40 meq ONCE PO Last administered on 12:07; Admin Dose 40 MEQ; Start 02/25/17 at 12:00; Stop 02/25/17 at 16:00 Levofloxacin (Levaquin) 750 mg DAILY@06 PO ; Start 02/25/17 at 12:30 JULIA VAUGHN MD Feb 25, 2017 12:48
[2017-02-25 13:14] VITALS: BP 119/56; RESP 20
[2017-02-25] MEDS ORDERED: metFORMIN 500 MG TAB PO ONE (13:30)
--- NOTE | 2017-02-25 13:31 | CONS ---
Date/Time of Note Date/Time of Note DATE: 02/25/17 TIME: 13:29 Assessment/Plan Assessment/Plan Chief Complaint/Hosp Course 41-year-old female who is out of medical contact. She had previously been treated for diabetes mellitus type 2 roughly 7 years ago with Actos. She took that for 1 year and self discontinued this. She had gone through a somewhat firm self enforce weight loss protocol. She had been her usual state of health but started to develop symptoms of dysuria. She became extremely ill was brought to the emergency room and found to be in DKA. Problems: (1) Gram-negative bacteremia Status: Acute Comment: Transitioning over to oral antibiotics with high-dose Levaquin. I am in full agreement with this maneuver. I give her 10 days as an outpatient. (2) Migraine syndrome Status: Chronic Comment: Positive response to prophylactic therapy using topiramate. (3) Diabetes mellitus type 2 in obese Status: Chronic Comment: Good control. Continue transition of her oral regimen and discontinue insulin (4) Acute hypokalemia Status: Acute Comment: Replace. Consultation Date/Type/Reason Admit Date/Time Feb 21, 2017 at 20:37 Initial Consult Date 02/22/17 Type of Consultation: Endocrinology Reason for Consultation Diabetes mellitus type 2; gram-negative sepsis; E. coli UTI; NST MELISSA type II Referring Provider: SHIVANI SABILLON 24 HR Interval Summary Free Text/Dictation Patient is significantly improved at this time. Constitutional: no complaints Exam/Review of Systems Vital Signs Vitals Vital Signs Date Time Temp Pulse Resp B/P Pulse Ox O2 Delivery O2 Flow Rate FiO2 02/25/17 13:14 97.7 82 20 119/56 96 02/24/17 23:15 21 02/24/17 16:00 Room Air 02/23/17 01:00 2.0 Intake and Output 02/24/17 02/24/17 02/25/17 15:00 23:00 07:00 Intake Total 626.65 ml 435 ml 390 ml Output Total 100 ml 500 ml 1000 ml Balance 526.65 ml -65 ml -610 ml Exam Constitutional: alert, oriented Respiratory: clear to auscultation, normal air movement Cardiovascular: nl pulses, regular rate and rhythm Gastrointestinal: nl liver, spleen, non-tender, soft Results Result Diagram: 02/25/17 0632 02/25/17 0632 Results 24 hrs Laboratory Tests Test 02/24/17 17:21 02/24/17 20:54 02/25/17 00:01 02/25/17 06:32 Bedside Glucose 122 129 Urine Random Creatinine 43.01 Urine Collection Duration 24 Urine Total Volume 24 Hours 2000 Urine Creatinine Timed 24 Creatinine Clearance 124.4 Urine Total Volume (Protein) 2000 Urine Total Protein 24 Hour 380.0 H White Blood Count 6.6 Red Blood Count 3.60 L Hemoglobin 7.6 L Hematocrit 26.4 L Mean Corpuscular Volume 73.3 L Mean Corpuscular Hemoglobin 21.1 L Mean Corpuscular Hemoglobin Concent 28.8 L Red Cell Distribution Width 17.7 H Platelet Count 279 Mean Platelet Volume 9.2 Neutrophils % 58.0 Lymphocytes % 32.3 Monocytes % 6.8 Eosinophils % 1.5 Basophils % 0.3 Nucleated Red Blood Cells % 0.0 Neutrophils # 3.9 Lymphocytes # 2.1 Monocytes # 0.5 Eosinophils # 0.1 Basophils # 0.0 Nucleated Red Blood Cells # 0.0 Sodium Level 142 Potassium Level 3.3 L Chloride Level 112 H Carbon Dioxide Level 21 Anion Gap 12 Blood Urea Nitrogen 3 L Creatinine 0.55 Glucose Level 114 Calcium Level 7.9 L Phosphorus Level 3.8 Magnesium Level 1.6 L Triglycerides Level 182 H Cholesterol Level 95 L LDL Cholesterol, Calculated 40 HDL Cholesterol 19 L Cholesterol/HDL Ratio 5.0 Test 02/25/17 08:02 02/25/17 12:05 Bedside Glucose 120 135 Medications Medications Current Medications Ondansetron HCl (Zofran Inj) 4 mg Q6H PRN IV NAUSEA AND/OR VOMITING Last administered on 02/24/17 04:30; Admin Dose 4 MG; Start 02/21/17 at 22:00 Acetaminophen (Tylenol Liquid) 650 mg Q6H PRN PO PAIN LEVEL 1-3 OR FEVER Last administered on 02/23/17 08:05; Admin Dose 650 MG; Start 02/21/17 at 22:00 Morphine Sulfate (morphine) 2 mg Q4H PRN IV PAIN LEVEL 7-10 Last administered on 02/23/17 17:23; Admin Dose 2 MG; Start 02/21/17 at 22:00 Famotidine (Pepcid Iv) 20 mg Q12 IV Last administered on 02/25/17 08:47; Admin Dose 20 MG; Start 02/22/17 at 09:00 Heparin Sodium (Porcine) (Heparin (5000 Units/0.5 ml)) 5,000 unit Q12 SC Last administered on 02/25/17 08:57; Admin Dose 5,000 UNIT; Start 02/22/17 at 09: 00 Acetaminophen 650 mg 650 mg Q6H PRN PO pain Last administered on 02/24/17 09: 02; Admin Dose 650 MG; Start 02/22/17 at 06:00 Lactated Ringer's (Lr) 1,000 ml @ 25 mls/hr Q24H IV Last administered on 02/25 05:14; Admin Dose 25 MLS/HR; Start 02/23/17 at 13:00 Linagliptin (Tradjenta) 5 mg DAILY PO Last administered on 02/25/17 08:51; Admin Dose 5 MG; Start 02/23/17 at 13:30 Topiramate (Topamax) 25 mg BID PO Last administered on 02/25/17 08:48; Admin Dose 25 MG; Start 02/23/17 at 21:00 Diagnostic Test (Pha) (Accu-Chek) 1 ea 02 XX ; Start 02/25/17 at 02:00 Miscellaneous Information 1 ea 1 ea NOTE XX ; Start 02/24/17 at 09:30 Dextrose (D5W) 1,000 ml @ 75 mls/hr [id number] PRN IV LOW BLOOD GLUCOSE; Start at 09:13 Dextrose (D50w Syringe) 25 ml Q15M PRN IV Till BS 80 mg/dL or above x2; Start 02/24/17 at 09:30 Dextrose (D50w Syringe) 50 ml Q15M PRN IV Till BS 80 mg/dL or above x2; Start 02/24/17 at 09:30 Methocarbamol (Robaxin) 1,500 mg TID PO Last administered on 02/25/17 12:09; Admin Dose 1,500 MG; Start 02/24/17 at 13:00 Insulin Glargine (Lantus) 6 unit DAILY@08 SC Last administered on 02/25/17 08 :45; Admin Dose 6 UNIT; Start 02/24/17 at 09:30 Aspirin (Halfprin) 81 mg DAILY PO Last administered on 02/25/17 08:48; Admin Dose 81 MG; Start 02/24/17 at 14:30 Ibuprofen (Motrin) 400 mg Q6H PRN PO PAIN Last administered on 02/25/17 05:59 ; Admin Dose 400 MG; Start 02/24/17 at 17:04 Miscellaneous Information 1 ea NOTE XX ; Start 02/24/17 at 17:30 Glucose (Glutose) 15 gm Q15M PRN PO DECREASED GLUCOSE; Start 02/24/17 at 17:30 Glucose (Glutose) 22.5 gm Q15M PRN PO DECREASED GLUCOSE; Start 02/24/17 at 17: 30 Glucagon (Glucagen) 1 mg Q15M PRN IM DECREASED GLUCOSE; Start 02/24/17 at 17: 30 Glucose (Glutose) 15 gm Q15M PRN BUCCAL DECREASED GLUCOSE; Start 02/24/17 at 17:30 Potassium Chloride (Klor-Con 20) 40 meq ONCE PO Last administered on 12:07; Admin Dose 40 MEQ; Start 02/25/17 at 12:00; Stop 02/25/17 at 16:00 Levofloxacin (Levaquin) 750 mg DAILY@06 PO ; Start 02/25/17 at 12:30 ANDRES KAN MD Feb 25, 2017 13:31
[2017-02-25] MEDS ORDERED: VITAMIN A & D 5 GM OINT PACKET TOP ONE (13:40)
[2017-02-25] MEDS: LEVOFLOXACIN 750 MG TABLET PO SCH (14:09)
[2017-02-25] MEDS ORDERED: SOD FERRIC GLUC COMPLX 125 MG in SOD CHLORIDE 0.9% 100 ML IVPB ONE (15:00)
[2017-02-25] MEDS ORDERED: metFORMIN 500 MG TAB PO SCH (18:00)
[2017-02-25 20:00] VITALS: BP 111/68; RESP 18
[2017-02-26] MEDS: ACCU-CHEK XX SCH (02:00)
[2017-02-26 02:12] VITALS: BP 107/64; RESP 16
[2017-02-26] MEDS: LACTATED RINGER'S 1,000 ML IV SCH (04:36)
[2017-02-26] MEDS: LEVOFLOXACIN 750 MG TABLET PO SCH (05:40)
[2017-02-26 05:59] LABS: ABNORMAL IP MESSAGE 1; BASOPHILS % 0.2 % (0.0-2.0); EOSINOPHILS # 0.2 10^3/ul (0.0-0.5); EOSINOPHILS % 2.3 % (0.0-7.0); HEMATOCRIT 28.8 % (37.0-47.0); HEMOGLOBIN 8.3 g/dl (12.0-16.0); LYMPHOCYTES # 2.8 10^3/ul (0.8-2.9); LYMPHOCYTES % 33.7 % (15.0-51.0); MEAN CORPUSCULAR HEMOGLOBIN 21.3 pg (29.0-33.0); MEAN CORPUSCULAR HGB CONC 28.8 g/dl (32.0-37.0); MONOCYTE # 0.6 10^3/ul (0.3-0.9); MONOCYTES % 7.7 % (0.0-11.0); NEUTROPHIL # 4.5 10^3/ul (1.6-7.5); NEUTROPHILS % 54.3 % (39.0-77.0); NUCLEATED RED BLOOD CELLS% 0.4 /100WBC (0.0-0.0); PLATELET COUNT 308 10^3/UL (140-415); RED BLOOD COUNT 3.89 10^6/ul (4.20-5.40); RED CELL DISTRIBUTION WIDTH 17.8 % (11.5-14.5); WHITE BLOOD COUNT 8.3 10^3/ul (4.8-10.8)
[2017-02-26 06:21] LABS: CREATININE 0.63 mg/dl (0.44-1.00); MAGNESIUM 1.7 mg/dl (1.7-2.5); PHOSPHORUS 4.1 mg/dl (2.5-4.9); POTASSIUM 3.5 mmol/L (3.5-5.1)
[2017-02-26 06:28] LABS: POSITIVE DIFF @See below
[2017-02-26 07:16] VITALS: BP 121/70; RESP 16
[2017-02-26] MEDS: INSULIN ASPART [NOVOLOG] 3 ML PEN SC SCH (08:15)
--- NOTE | 2017-02-26 10:27 | PDOCDIS ---
Discharge Instructions CONDITION Patient Condition: Stable HOME CARE INSTRUCTIONS: Special Diet: carb control ACTIVITY: Activity Restrictions: Slowly Increase Activity FOLLOW UP/APPOINTMENTS Follow-up Plan 1. Take all medications as directed 2. Follow up with your primary care provider within 2 weeks 3. Follow up with Dr. Margarito Negron within 1 month DIEUDONNE BOYER Feb 26, 2017 10:27
[2017-02-26] MEDS ORDERED: LINA5TAB PO (10:30)
[2017-02-26] MEDS ORDERED: TOPI25TA51 PO (10:30)
[2017-02-26] MEDS ORDERED: POTASSIUM CHLORIDE 20 MEQ POWDER FOR ORAL SOLN PO ONE (10:30)
[2017-02-26] MEDS ORDERED: METF500T PO (10:30)
[2017-02-26] MEDS ORDERED: LEVO750T25 PO (10:30)
[2017-02-26] MEDS ORDERED: POTASSIUM CHLORIDE (SR) 20 MEQ TAB PO STA (10:32)
[2017-02-26] MEDS: METHOCARBAMOL 750 MG TAB PO SCH (10:34)
[2017-02-26] MEDS: TOPIRAMATE 25 MG TAB PO SCH (10:34)
[2017-02-26] MEDS: ASPIRIN (EC) 81 MG TAB PO SCH (10:34)
[2017-02-26] MEDS: LINAGLIPTIN 5 MG TABLET PO SCH (10:34)
[2017-02-26] MEDS: HEPARIN 5,000 UNIT/0.5 ML VIAL SC SCH (10:36)
--- NOTE | 2017-02-26 11:26 | CONS ---
Date/Time of Note Date/Time of Note DATE: 02/26/17 TIME: 11:25 Assessment/Plan Assessment/Plan Chief Complaint/Hosp Course 41-year-old female who is out of medical contact. She had previously been treated for diabetes mellitus type 2 roughly 7 years ago with Actos. She took that for 1 year and self discontinued this. She had gone through a somewhat firm self enforce weight loss protocol. She had been her usual state of health but started to develop symptoms of dysuria. She became extremely ill was brought to the emergency room and found to be in DKA. Problems: (1) Diabetes mellitus type 2 in obese Status: Chronic Comment: Doing well on current oral agent regimen. Stable for discharge (2) Migraine syndrome Status: Chronic Comment: Well-controlled continue topiramate as an outpatient Consultation Date/Type/Reason Admit Date/Time Feb 21, 2017 at 20:37 Initial Consult Date 02/22/17 Type of Consultation: Endocrinology Reason for Consultation Diabetes mellitus type 2 out of control; sepsis; migraine syndrome Referring Provider: SHIVANI SABILLON 24 HR Interval Summary Free Text/Dictation Patient is feeling much better. Stable for discharge at this time Constitutional: no complaints Exam/Review of Systems Vital Signs Vitals Vital Signs Date Time Temp Pulse Resp B/P Pulse Ox O2 Delivery O2 Flow Rate FiO2 02/26/17 07:16 98.5 74 16 121/70 93 02/24/17 23:15 21 02/24/17 16:00 Room Air 02/23/17 01:00 2.0 Intake and Output 02/25/17 02/25/17 02/26/17 15:00 23:00 07:00 Intake Total 1240 ml 675 ml Output Total 700 ml 1150 ml Balance 540 ml -475 ml Exam No changes Results No changes Result Diagram: 02/26/17 0521 02/26/17 0521 Results 24 hrs Laboratory Tests Test 02/25/17 12:05 02/25/17 17:08 02/25/17 21:45 02/26/17 05:21 Bedside Glucose 135 132 121 White Blood Count 8.3 # Red Blood Count 3.89 L Hemoglobin 8.3 L Hematocrit 28.8 L Mean Corpuscular Volume 74.0 L Mean Corpuscular Hemoglobin 21.3 L Mean Corpuscular Hemoglobin Concent 28.8 L Red Cell Distribution Width 17.8 H Platelet Count 308 Mean Platelet Volume 9.0 Neutrophils % 54.3 Lymphocytes % 33.7 Monocytes % 7.7 Eosinophils % 2.3 Basophils % 0.2 Nucleated Red Blood Cells % 0.4 H Neutrophils # 4.5 Lymphocytes # 2.8 Monocytes # 0.6 Eosinophils # 0.2 Basophils # 0.0 Nucleated Red Blood Cells # 0.0 Sodium Level 142 Potassium Level 3.5 Chloride Level 112 H Carbon Dioxide Level 21 Anion Gap 13 Blood Urea Nitrogen 5 L Creatinine 0.63 Glucose Level 120 Calcium Level 8.0 L Phosphorus Level 4.1 Magnesium Level 1.7 Test 02/26/17 08:17 Bedside Glucose 124 Medications Medications Current Medications Ondansetron HCl (Zofran Inj) 4 mg Q6H PRN IV NAUSEA AND/OR VOMITING Last administered on 02/24/17 04:30; Admin Dose 4 MG; Start 02/21/17 at 22:00 Acetaminophen (Tylenol Liquid) 650 mg Q6H PRN PO PAIN LEVEL 1-3 OR FEVER Last administered on 02/23/17 08:05; Admin Dose 650 MG; Start 02/21/17 at 22:00 Morphine Sulfate (morphine) 2 mg Q4H PRN IV PAIN LEVEL 7-10 Last administered on 02/23/17 17:23; Admin Dose 2 MG; Start 02/21/17 at 22:00 Heparin Sodium (Porcine) (Heparin (5000 Units/0.5 ml)) 5,000 unit Q12 SC Last administered on 02/26/17 10:36; Admin Dose 5,000 UNIT; Start 02/22/17 at 09: 00 Acetaminophen 650 mg 650 mg Q6H PRN PO pain Last administered on 02/24/17 09: 02; Admin Dose 650 MG; Start 02/22/17 at 06:00 Lactated Ringer's (Lr) 1,000 ml @ 25 mls/hr Q24H IV Last administered on 02/25 05:14; Admin Dose 25 MLS/HR; Start 02/23/17 at 13:00 Linagliptin (Tradjenta) 5 mg DAILY PO Last administered on 02/26/17 10:34; Admin Dose 5 MG; Start 02/23/17 at 13:30 Topiramate (Topamax) 25 mg BID PO Last administered on 02/26/17 10:34; Admin Dose 25 MG; Start 02/23/17 at 21:00 Diagnostic Test (Pha) (Accu-Chek) 1 ea 02 XX ; Start 02/25/17 at 02:00 Miscellaneous Information 1 ea 1 ea NOTE XX ; Start 02/24/17 at 09:30 Dextrose (D5W) 1,000 ml @ 75 mls/hr [id number] PRN IV LOW BLOOD GLUCOSE; Start at 09:13 Dextrose (D50w Syringe) 25 ml Q15M PRN IV Till BS 80 mg/dL or above x2; Start 02/24/17 at 09:30 Dextrose (D50w Syringe) 50 ml Q15M PRN IV Till BS 80 mg/dL or above x2; Start 02/24/17 at 09:30 Methocarbamol (Robaxin) 1,500 mg TID PO Last administered on 02/26/17 10:34; Admin Dose 1,500 MG; Start 02/24/17 at 13:00 Insulin Glargine (Lantus) 6 unit DAILY@08 SC Last administered on 02/25/17 08 :45; Admin Dose 6 UNIT; Start 02/24/17 at 09:30; Status Future Hold Aspirin (Halfprin) 81 mg DAILY PO Last administered on 02/26/17 10:34; Admin Dose 81 MG; Start 02/24/17 at 14:30 Ibuprofen (Motrin) 400 mg Q6H PRN PO PAIN Last administered on 02/25/17 15:39 ; Admin Dose 400 MG; Start 02/24/17 at 17:04 Miscellaneous Information 1 ea NOTE XX ; Start 02/24/17 at 17:30 Glucose (Glutose) 15 gm Q15M PRN PO DECREASED GLUCOSE; Start 02/24/17 at 17:30 Glucose (Glutose) 22.5 gm Q15M PRN PO DECREASED GLUCOSE; Start 02/24/17 at 17: 30 Glucagon (Glucagen) 1 mg Q15M PRN IM DECREASED GLUCOSE; Start 02/24/17 at 17: 30 Glucose (Glutose) 15 gm Q15M PRN BUCCAL DECREASED GLUCOSE; Start 02/24/17 at 17:30 Levofloxacin (Levaquin) 750 mg DAILY@06 PO Last administered on 02/26/17 05: 40; Admin Dose 750 MG; Start 02/25/17 at 12:30 ANDRES KAN MD Feb 26, 2017 11:26
--- NOTE | 2017-02-26 12:07 | DS ---
Date/Time of Note Date/Time of Note DATE: 02/26/17 TIME: 12:06 Discharge Summary Admission/Discharge Info Admit Date/Time Feb 21, 2017 at 20:37 Discharge Date/Time Feb 26, 2017 at 11:55 Patient Condition: Stable Hx of Present Illness This is a 41-year-old female with a history of diabetes was brought to the ER for a loss of consciousness. Patient works at [employer] facility where she had a syncopal episode. Patient is altered and as such information is gathered from chart review and from ER physician. Reportedly patient had fever 1 day and earlier today had nonbilious nonbloody emesis. Patient was in witnessed to have a loss of consciousness. The circumstances how it occurs is not clear. She did have a bladder and bowel incontinence but no witnessed seizure-like activity. When patient presented to the ER, she had a temperature of 100.1, heart rate 107 , BP 95/55. Labs shows glucose of 454, AG 23, bicarb 16, potassium 3, lactate 3. Urinalysis was consistent with UTI and also showed trace ketones. 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 Patient has been started on a DKA protocol and awaiting ICU admission. Hospital Course Patient is a 41-year-old female with a past medical history of diabetes mellitus who was noncompliant on her medications who presented to [facility] in diabetic ketoacidosis. Patient was admitted to the ICU and underwent diabetic ketoacidosis protocol and was also seen by endocrinology. Patient was successfully weaned off insulin drip and eventually transition to oral medications per her request. Insulin as an outpatient therapy was offered, however patient requested oral therapy only for now. Endocrinology therefore formulated a regimen of oral medications. Patient also developed mild troponin elevation, was seen by cardiology who recommended outpatient cardio workup. Patient will also be discharged with a prescription for Topamax as she has chronic migraines. Also, a gram-negative sandra E. coli was found in her blood, patient was given IV antibiotics and eventually transitioned to orals. Patient is doing well and will be given a prescription to complete her full course of antibiotics. Patient is urged to follow with her primary care provider for repeat labs within 2 weeks. 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 Patient is understands Discharge diagnosis Diabetic ketoacidosis, resolved Acute encephalopathy, likely secondary to DKA, resolved headache, migraines neck strain Hypokalemia, resolved Anion gap metabolic acidosis, resolving Low iron Elevated troponin Obesity Medical noncompliance electrolyte derangement Home Meds Active Scripts Metformin Hcl (Glucophage) 500 Mg Tablet, 500 MG PO WITH DINNER for 30 Days, # 30 TAB Prov:DIEUDONNE BOYER J 02/26/17 Linagliptin (TRADJENTA) 5 Mg Tablet, 5 MG PO DAILY for 30 Days, #30 TAB Prov:DIEUDONNE BOYER 02/26/17 Topiramate* (Topamax*) 25 Mg Tablet, 25 MG PO BID for 30 Days, #60 TAB 1 Refill Prov:ROSALINDDIEUDONNE Talbot 02/26/17 Levofloxacin* (Levaquin*) 750 Mg Tablet, 750 MG PO DAILY@06 for 10 Days, #10 TAB Prov:DIEUDONNE BOYER J 02/26/17 Follow-up Plan 1. Take all medications as directed 2. Follow up with your primary care provider within 2 weeks 3. Follow up with Dr. Margarito Negron within 1 month Primary Care Provider Care Physician No Primary Time spent on discharge: > 30 minutes Pending Labs Laboratory Tests Test 02/25/17 17:08 02/25/17 21:45 02/26/17 05:21 02/26/17 08:17 Bedside Glucose 132mg/dL (70-220) 121mg/dL (70-220) 124mg/dL (70-220) White Blood Count 8.310^3/ul (4.8-10.8) Red Blood Count 3.8910^6/ul (4.20-5.40) Hemoglobin 8.3g/dl (12.0-16.0) Hematocrit 28.8% (37.0-47.0) Mean Corpuscular Volume 74.0fl (82.0-101.0) Mean Corpuscular Hemoglobin 21.3pg (29.0-33.0) Mean Corpuscular Hemoglobin Concent 28.8g/dl (32.0-37.0) Red Cell Distribution Width 17.8% (11.5-14.5) Platelet Count 13012^3/UL (140-415) Mean Platelet Volume 9.0fl (7.4-10.4) Neutrophils % 54.3% (39.0-77.0) Lymphocytes % 33.7% (15.0-51.0) Monocytes % 7.7% (0.0-11.0) Eosinophils % 2.3% (0.0-7.0) Basophils % 0.2% (0.0-2.0) Nucleated Red Blood Cells % 0.4/100WBC (0.0-0.0) Neutrophils # 4.510^3/ul (1.6-7.5) Lymphocytes # 2.810^3/ul (0.8-2.9) Monocytes # 0.610^3/ul (0.3-0.9) Eosinophils # 0.210^3/ul (0.0-0.5) Basophils # 0.010^3/ul (0.0-0.1) Nucleated Red Blood Cells # 0.010^3/ul (0.0-0.0) Sodium Level 142mmol/L (135-144) Potassium Level 3.5mmol/L (3.5-5.1) Chloride Level 112mmol/L (97-110) Carbon Dioxide Level 21mmol/L (21-31) Anion Gap 13 (8-16) Blood Urea Nitrogen 5mg/dl (7-20) Creatinine 0.63mg/dl (0.44-1.00) Glucose Level 120mg/dl (70-220) Calcium Level 8.0mg/dl (8.4-10.2) Phosphorus Level 4.1mg/dl (2.5-4.9) Magnesium Level 1.7mg/dl (1.7-2.5) DIEUDONNE BOYER Feb 26, 2017 12:06
== END 2017-02-26 11:55 | disposition home or self-care (01) | DRG 871 ==
LOC: E/R 18:38 → ICU 20:37 → MS2 02-24 16:35
PROVIDERS: ADMIT Internal Medicine; ATTEND Internal Medicine
DX: A41.51 Sepsis due to Escherichia coli [E. coli] (principal); E11.10 Type 2 diabetes mellitus with ketoacidosis without coma; R65.21 Severe sepsis with septic shock; G93.41 Metabolic encephalopathy; E87.2 Acidosis; N39.0 Urinary tract infection, site not specified; A41.9 Sepsis, unspecified organism; E87.6 Hypokalemia; Z91.14 Patient's other noncompliance with medication regimen; Z72.0 Tobacco use; B96.20 Unspecified Escherichia coli [E. coli] as the cause of diseases classified elsewhere; G43.909 Migraine, unspecified, not intractable, without status migrainosus
CPT/HCPCS: 36600; 70450; 71010; 80048; 80053; 80061; 80069; 81001; 82043; 82575; 82728; 82803; 82962; 83036; 83540; 83605; 83690; 83735; 84100; 84132; 84156; 84443; 84484; 85025; 85045; 85610; 85730; 86803; 87040; 87081; 87086; 93005; 93306; 94664; 96372; 96374; 96375; J0696; J1644; J1815; J2270; J2405; J2916; J3370; J3475; J3480; J7030; J7040; J7042; J7120

== ENCOUNTER → 2017-03-10 | Outpatient (CLI) | END | disposition home or self-care (01) ==

== ENCOUNTER 2018-09-28 13:44 | Inpatient (IN) | payer MEDICAID ==
[~2018-09-28] VITALS: Ht 157.5 cm; Wt 80.4 kg
[~2018-09-28 13:44] MED LIST: LEVO750T25 PO; LINA5TAB PO; METF500T PO; TOPI25TA PO
[2018-09-28] MEDS ORDERED: KETOROLAC 15 MG INJ IV STA (14:03)
[2018-09-28] MEDS ORDERED: CEFEPIME 2GM/50 ML (PMX) 50 ML IVPB STA (14:03)
[2018-09-28] MEDS ORDERED: ONDANSETRON 4 MG INJ IV STA (14:03)
[2018-09-28] MEDS ORDERED: ACETAMINOPHEN 325 MG TAB PO STA (14:03)
[2018-09-28] MEDS ORDERED: SODIUM CHLORIDE 0.9% 1L BAG IV* STA (14:03)
--- NOTE | 2018-09-28 14:28 | ERD ---
ER Documentation Chief Complaint Chief Complaint VOMITITNG - HX OF DM HPI 43-year-old female history of non-insulin dependent diabetes who presents the emergency room with fever and nausea. Patient's symptoms have been present for approximately 24 hours. It appears the patient feels generalized malaise. Her temperature was noted to be significantly elevated at triage. The patient has no focal symptoms other than nausea. She denies any shortness of breath or cough, no headache, no rash, no neck stiffness. She denies abdominal pain or dysuria urgency or frequency, no flank pain or back pain. Patient's blood sugar has been noted to be elevated today. She has been compliant with her medication regimen. In the past the patient has had a pyelonephritis that presented similarly. ROS All systems reviewed and are negative except as per history of present illness. Medications Home Meds Reported Medications Ibuprofen* (Ibuprofen*) 200 Mg Capsule, 400 MG PO NEEDED, CAP 09/28/18 Amoxicillin* (Amoxicillin*) 500 Mg Cap, 500 MG PO BID, #20 CAP 09/28/18 Discontinued Scripts Metformin Hcl (Glucophage) 500 Mg Tablet, 500 MG PO WITH DINNER for 30 Days, #30 TAB Prov:DIEUDONNE BOYER 02/26/17 Linagliptin (TRADJENTA) 5 Mg Tablet, 5 MG PO DAILY for 30 Days, #30 TAB Prov:DIEUDONNE BOYER 02/26/17 Topiramate* (Topamax*) 25 Mg Tablet, 25 MG PO BID for 30 Days, #60 TAB 1 Refill Prov:DIEUDONNE BOYER 02/26/17 Levofloxacin* (Levaquin*) 750 Mg Tablet, 750 MG PO DAILY@06 for 10 Days, #10 TAB Prov:DIEUDONNE BOYER 02/26/17 Allergies Allergies: Coded Allergies: No Known Allergy (Unverified , 09/28/18) PMhx/Soc History of Surgery: No Anesthesia Reaction: No Hx Neurological Disorder: No Hx Respiratory Disorders: No Hx Cardiac Disorders: No Hx Psychiatric Problems: No Hx Miscellaneous Medical Probl: Yes (WEIGHT LOSS FROM 244 # TO 165 # INTENTIONAL) Hx Alcohol Use: No Hx Substance Use: No Hx Tobacco Use: No FmHx Family History: diabetes Physical Exam Vitals Vital Signs Date Temp Pulse Resp B/P (MAP) Pulse Ox O2 O2 Flow FiO2 Time Delivery Rate 09/28/18 108 25 90/51 (64) 98 Nasal 2.0 16:28 Cannula 09/28/18 100.2 111 24 79/28 (45) 98 Nasal 2.0 16:12 Cannula 09/28/18 102.0 3.0 15:24 09/28/18 3.0 14:45 09/28/18 42.0 14:37 09/28/18 107.6 14:01 09/28/18 Nasal 2 14:00 Cannula 09/28/18 106.6 92 32 107/53 96 13:57 (71) Physical Exam General: No significant distress mild malaise noted Head: Normocephalic, atraumatic. Eyes: Pupils equally reactive, EOM intact ENT: Moist mucous membranes Neck: Supple, no lymphadenopathy Respiratory: Lungs clear bilaterally, no distress Cardiovascular: Tachycardia, no murmurs, rubs, or gallops Abdominal: Soft, non-tender, non-distended, no peritoneal signs : Deferred MSK: No edema, no unilateral swelling, 5/5 strength Neurologic: Alert and oriented, moving all extremities, normal speech, no focal weakness, no cerebellar signs, no meningismus Skin: No rash Psych: Normal mood Result Diagram: 09/28/18 1411 09/28/18 1411 Results 24 hrs Laboratory Tests Test 09/28/18 14:03 09/28/18 14:04 09/28/18 14:11 09/28/18 14:52 Blood Gas Blood venous Specimen Source Arterial Blood 09/28/2018 2:08: Date Drawn 19 PM Arterial Blood OTHER Gas Puncture Site Guillermo Test N/A Venous Blood pH 7.402 Venous Blood 27.6 mmHG pCO2 (Temp Corrected ) Venous Blood 38.5 mmHG pO2 (Temp Corrected ) Venous Blood 16.8 mmol/L HCO3 Venous Blood 71.7 mmHG Oxygen Saturation Venous Blood -6.6 mmol/L Base Excess Venous Blood 12.3 g/dl Total Hemoglobin Venous Blood 71.1 % Oxyhemoglobin Venous Blood 0.2 % Methemoglobin Blood Gas A-a 78.2 mmHg O2 Differential Carboxyhemoglob 0.6 % in Blood Gas 37.0 C Temperature Blood Gas ROOM AIR Modality FiO2 21.0 % Blood Gas LUIS R.NGonsalo Critical Value Read Back Blood Gas [facility] Notified Whom Blood Gas 09/28/2018 2:13: Notified Time 26 PM Bedside Glucose 314 mg/dL White Blood 5.9 10^3/ul Count Red Blood Count 5.23 10^6/ul Hemoglobin 11.3 g/dl Hematocrit 38.0 % Mean 72.7 fl Corpuscular Volume Mean 21.6 pg Corpuscular Hemoglobin Mean 29.7 g/dl Corpuscular Hemoglobin Conc ent Red Cell 17.1 % Distribution Width Platelet Count 272 10^3/UL Mean Platelet 9.1 fl Volume Immature 0.500 % Granulocytes % Neutrophils % % Segmented 46 % Neutrophils % (Manual) Band 14 % Neutrophils % (Manual) Lymphocytes % % Lymphocytes % 35 % (Manual) Reactive 4 % Lymphocytes % (Manual) Monocytes % % Eosinophils % % Basophils % % Basophils % 1 % (Manual) Nucleated Red 0.0 /100WBC Blood Cells % Immature 0.030 10^3/ul Granulocytes # Neutrophils # 10^3/ul Neutrophils # 2.8 10^3/ul (Manual) Band 0.8 10^3/ul Neutrophils # Lymphocytes 2.0 10^3/ul (Manual) Lymphocytes # 10^3/ul Reactive 0.2 10^3/ul Lymphocytes # Monocytes # 10^3/ul Eosinophils # 10^3/ul Basophils # 10^3/ul Basophils # 0.0 10^3/ul (Manual) Nucleated Red 10^3/ul Blood Cells # Platelet NORMAL Estimate Polychromasia 3+ Poikilocytosis 3+ Anisocytosis 2+ Microcytosis 1+ Macrocytosis 1+ Prothrombin 13.1 Sec Time Prothrombin 1.0 Time Ratio INR 0.98 International Normalized Rati o Activated 26.2 Sec Partial Thrombo plast Time Sodium Level 139 mmol/L Potassium Level 4.0 mmol/L Chloride Level 105 mmol/L Carbon Dioxide 17 mmol/L Level Anion Gap 17 Blood Urea 10 mg/dl Nitrogen Creatinine 0.64 mg/dl Est Glomerular > 60 mL/min Filtrat Rate mL/min Glucose Level 326 mg/dl Calcium Level 8.6 mg/dl Phosphorus 3.5 mg/dl Level Magnesium Level 1.4 mg/dl Total Bilirubin 0.4 mg/dl Direct 0.00 mg/dl Bilirubin Indirect 0.4 mg/dl Bilirubin Aspartate Amino 35 IU/L Transf (AST/SGO T) Alanine 22 IU/L Aminotransferas e (ALT/SGPT) Alkaline 125 IU/L Phosphatase Troponin I < 0.012 ng/ml Total Protein 8.3 g/dl Albumin 4.1 g/dl Globulin 4.20 g/dl Albumin/Globuli 0.97 n Ratio Serum HCG, NEGATIVE Qualitative Urine Color YELLOW Urine Clarity CLOUDY Urine pH 5.0 Urine Specific 1.027 [place] Urine Ketones 1+ mg/dL Urine Nitrite NEGATIVE mg/dL Urine Bilirubin NEGATIVE mg/dL Urine NEGATIVE mg/dL Urobilinogen Urine Leukocyte 1+ Brianne/ul Esterase Urine > 182 /HPF Microscopic RBC Urine 51 /HPF Microscopic WBC Urine Squamous MANY /HPF Epithelial Cell s Urine Bacteria FEW /HPF Urine Mucus FEW /HPF Urine 3+ mg/dL Hemoglobin Urine Glucose 3+ mg/dL Urine Total 3+ mg/dl Protein Test 09/28/18 15:08 09/28/18 16:17 09/28/18 17:07 POC Venous 2.0 mmol/L Lactate Lactic Acid 1.2 mmol/L Level Bedside Glucose 391 mg/dL Current Medications Medications Dose Sig/Hayden Start Time Status Last (Trade) Ordered Route PRN Stop Time Admin Dose Reason Admin Sodium 2,390 ml BOLUS OVER 2 09/28/18 DC 09/28/18 Chloride HOURS STAT 14:03 14:38 (NS) IV* 09/28/18 14:06 650 mg ONCE STAT 09/28/18 DC 09/28/18 Acetaminophen PO 14:03 14:37 (Tylenol 09/28/18 14:06 Tab) Ondansetron 4 mg ONCE STAT 09/28/18 DC 09/28/18 HCl (Zofran IV 14:03 14:38 Inj) 09/28/18 14:06 Cefepime HCl 50 ml @ ONCE STAT 09/28/18 DC 09/28/18 100 mls/hr IVPB 14:03 14:37 09/28/18 14:32 Vancomycin 250 ml @ ONCE ONCE 09/28/18 DC 09/28/18 HCl 125 mls/hr IVPB 14:30 15:07 09/28/18 16:29 Ketorolac 15 mg ONCE STAT 09/28/18 DC 09/28/18 Tromethamine IV 14:03 14:38 (Toradol) 09/28/18 14:06 Insulin 10 unit ONCE ONCE 09/28/18 DC 09/28/18 Human SC 16:30 17:12 Lispro 09/28/18 16:31 (Humalog) Diagnostic 1 ea 2 HRS AFTER 09/28/18 DC Test (Pha) HUMALOG ONCE 17:00 (Accu-Chek) XX 09/28/18 17:01 Sodium 1,000 ml @ Q1H STAT 09/28/18 DC 09/28/18 Chloride 1,000 mls/hr IV 16:37 17:08 09/28/18 17:36 Ondansetron 4 mg ER BRIDGE 09/28/18 HCl (Zofran PRN IV 18:00 Inj) NAUSEA/VOMITI 09/29/18 17:59 NG 650 mg ER BRIDGE 09/28/18 Acetaminophen PRN PO 18:00 (Tylenol .MILD PAIN 09/29/18 17:59 Tab) 1-3 OR TEMP Procedures/MDM EKG, MONITORS, & DIAGNOSTIC IMAGING: EKG: I reviewed and interpreted a 12-lead EKG. Rhythm: Normal sinus rhythm ST Changes: No contiguous ST segment elevations T waves: No contiguous T wave inversions Impression: No evidence of acute cardiac ischemia Chest x-ray: IMPRESSION: Shallow lung volumes with mild retrocardiac opacity, which may represent atelectasis however correlation for pneumonia be helpful. RPTAT: AAEE LAB INTERPRETATION: I reviewed the laboratory testing and it shows no significant leukocytosis, venous blood gas with a normal pH, metabolic acidosis with slight hyperglycemia but bicarb is only 17. Lactic acid is normal at 1.2. Urinalysis consistent with urinary tract infection MEDICAL DECISION MAKING: The patient presents with high-grade fever and nonspecific symptoms. Hyperglycemia is also noted. Since prior history of presentation is consistent with pyelonephritis, this is likely suspected at this time. Patient has no other localizing signs or symptoms such as pneumonia or meningitis. The patient is alert conversant without headache without adjustments or neck stiffness or neck pain. I do not believe she requires a lumbar puncture at this time. Patient has a benign abdominal exam without signs of appendicitis. Consider possible viral process. The patient needs DKA screening, fluid resuscitation, empiric antibiotics given high-grade fever. Low threshold for hospitalization. ER COURSE: * The patient had a significant temperature treated with antipyretics, IV fluids, blood cultures and broad-spectrum antibiotics. * Patient is dramatically improved with time. The patient has reassuring laboratory values including normal lactic acid. * The source seems to be urinary tract infection which is consistent with presentation in the past. I have consider possible diagnosis of ureteral stone with the patient denies any flank pain, no colicky pain. On repeat exam she is mostly benign with a benign abdominal exam. I do not believe CT imagi ng of the abdomen pelvis is necessary at this time. Continue to monitor. * The patient's blood pressure did drop into the 80s and 90s after antibiotics. The patient continues to be extremely well-appearing and sitting up without symptoms. I do not believe a central line is necessary at this time. Further fluid resuscitation is likely necessary given possible dehydration secondary to secondary losses related to fever. Continue to monitor but again very reassured by the patient's clinical exam and lactic acid. at this point the risks of central line outweigh any benefits. * Patient did have hyperglycemia with borderline anion gap. However the patient's pH is 7.4. I do not believe this is consistent with diabetic ketoacidosis. The patient received appropriate fluid resuscitation and sub cutaneous Humalog. Patient's anion gap is likely to correct with this treatment alone. Risks of insulin drip and DKA protocol outweigh any benefits currently. CONSULTATION: None DISPOSITION PLAN: Telemetry admission given the patient's borderline blood pressure Accepting care team and consultations: I discussed the current laboratory data, diagnostic imaging and emergency care provided. Admitting team: Dr. Coleman Admitting team indication: Insurance directed Sepsis Documentation: Patient's infectious symptoms have not stabilized and the patient is at risk of rapid decompensation. The patient will be admitted for careful hydration, antibiotic therapy, and infectious source control. SEVERE SEPSIS CRITERIA: Infectious source: Urinary tract infection End organ damage indicated by: Hypotension (SBP < 90 or >40 mmHG drop or MAP < 65) SEPSIS MANAGEMENT Time of recognition of sepsis: Upon MD assessment. Time of recognition of severe sepsis: 1611. Time of recognition of septic shock: No septic shock at this time, however we are continuing fluid resuscitation, continue to reassess. 3 HOUR BUNDLE Blood cultures x 2 before broad-spectrum antibiotics: Yes 30 ml/kg NS bolus completed Initial lactate 2.0 Repeat lactate 1.2 SEPTIC SHOCK ASSESSMENT: No lactic acid > 4.0 No persistent hypotension (SBP < 90 or 40 mmHg drop, MAP < 65) despite 30 mL/kg IV fluid bolus VOLUME REASSESSMENT FOR SEPTIC SHOCK: Reevaluation Time: 5:43 PM Temperature of 100.2 heart rate 108 respiratory rate 25 blood pressure 95/51 Heart regular rate & rhythm Lungs no crackles Skin warm & dry Cap Refill less than 2 seconds Peripheral pulses radially present PERSISTENT HYPOTENSION TREATMENT: Comfort care no Central line not Required Vasopressor started not required I considered further perfusion assessment with CVP measurement, SCVO2, bedside ultrasound volume assessment, passive leg raise, trial of further fluid bolus. And proceeded with 30 ml/kg fluid bolus of NSS, broad spectrum antibiotics, and admission. Further fluid bolus provided given likely dehydration CRITICAL CARE Critical care time 35 minutes Emergent fluid management while maintaining close respiratory support. Provision of immediate and broad-spectrum antibiotic therapy. Simultaneous assessment for possible sources in order to direct targeted therapy. Consideration for invasive and chemical support to prevent cardiopulmonary collapse. Critical care time is independent of procedures performed. Departure Diagnosis: Primary Impression: Hyperglycemia Additional Impressions: Severe sepsis Acute pyelonephritis Dehydration Condition: Stable PHILIP CARLSON MD September 28, 2018 14:28
[2018-09-28] MEDS ORDERED: VANCOMYCIN 1 GM (PMX) 250 ML IVPB ONE (14:30)
[2018-09-28] MEDS ORDERED: AMOX500C2 PO (14:31)
[2018-09-28] MEDS ORDERED: IBUP-1982 PO (14:32)
[2018-09-28] MEDS ORDERED: INSULIN LISPRO 100 UNIT/ML VIAL SC ONE (16:30)
[2018-09-28] MEDS ORDERED: SOD CHLORIDE 0.9% 1,000 ML IV STA ×2 (16:37→17:42)
[2018-09-28] MEDS ORDERED: ACCU-CHEK XX ONE (17:00)
[2018-09-28] MEDS ORDERED: ACETAMINOPHEN 325 MG TAB PO PRN (18:00)
[2018-09-28] MEDS ORDERED: ONDANSETRON 4 MG INJ IV PRN ×2 (18:00→19:00)
[2018-09-28] MEDS ORDERED: NACL 0.9% 3 ML SYG IV SCH (19:00)
--- NOTE | 2018-09-28 19:09 | HP ---
Date/Time of Note Date/Time of Note DATE: 09/28/18 TIME: 18:46 Assessment/Plan VTE Prophylaxis SCD applied (from Nsg): Yes Pharmacological prophylaxis: NA/contraindicated Pharm contraindication: low risk/ambulating Lines/Catheters IV Catheter Type (from Nrsg): Saline Lock Assessment/Plan Assessment/Plan 43 yo woman with history of diabetes presents with severe sepsis. #Severe sepsis - Fevers, severe hypotension - Urine: UA positive for leuk esterase but not nitrates. Also patient denies flank pain, dysuria or any urinary symptoms. - CXR negative for pneumonia. No cough, minimal hypoxia. - No abdominal pain or abnormal LFTs; although she did have two episodes of vomiting. - This is similar to presentation in January. - Empiric ceftriaxone and metronidazole - Flu negative #Diabetes - Admonished patient about the importance of continuing meds and following an outpatient PMD - Sliding scale insulin #Microcytic anemia - She reports menses have actually been flying ii instructor than usual recently. No symptoms of GI bleed or other bleeds. - Iron panel, ferritin. Result Diagram: 09/28/18 1411 09/28/18 1411 HPI/ROS Admit Date/Time Admit Date/Time September 28, 2018 Hx of Present Illness Ms. Wiley is a pleasant 43 yo woman with history of diabetes who presents with fevers. She was in her usual state of health until Tuesday when she developed fevers, shaking chills, and nausea. Her mother gave her some amoxicillin from [facility] which improved her symptoms. However , the day of admission, while at work she developed worsening fevers. Measured temperature to be 102. Also headache, nausea. She vomited prior to the ED and again in the ED, nonbloody nonbilious. Of note she was hospitalized with similar symptoms in January 2018 here at [facility]. She went into septic shock and was in the ICU on pressors (not intubated). Blood cultures grew E Coli. She was found to have diabetes at that time and discharged on metformin and linagliptin. However she only took these medications for one month then stopped. She hasn't been on anything for her diabetes. In the ED she presented tachycardic to 111, febrile to 107.6 (42 C), BP 107/53. After initial assessment blood pressure dropped to 79/28 but recovered again with fluids. ROS She denies weight loss, night sweats, anorexia, dizziness, vertigo, dysphagia, neck pain, neck stiffness, photophobia, chest pain/pressure/palpitations, dyspnea, cough, abdominal pain, diarrhea, constipation, dysuria, hematuria, urinary frequency, flank pain, melena, very heavy or irregular menses. PMH/Family/Social Past Medical History Non-insulin dependent diabetes Medications Current Medications Ondansetron HCl (Zofran Inj) 4 mg ER BRIDGE PRN IV NAUSEA/VOMITING; Start 09/28/18 at 18:00; Stop 09/29/18 at 17:59 Acetaminophen (Tylenol Tab) 650 mg ER BRIDGE PRN PO .MILD PAIN 1-3 OR TEMP; Start 09/28/18 at 18:00; Stop 09/29/18 at 17:59 IV Flush (NS 3 ml) 3 ml PER PROTOCOL IV ; Start 09/28/18 at 19:00; Status UNV Ondansetron HCl (Zofran Inj) 4 mg Q6H PRN IV NAUSEA/VOMITING; Start 09/28/18 at 19:00; Status UNV Acetaminophen (Tylenol Tab) 650 mg Q6H PRN PO .PAIN 1-3 OR TEMP; Start 09/28/18 at 19:00; Status UNV Ceftriaxone Sodium 50 ml @ 100 mls/hr Q24H IVPB ; Start 09/28/18 at 19:00; Status UNV Coded Allergies: No Known Allergy (Unverified , 09/28/18) Past Surgical History Family History Significant Family History: no pertinent family hx Social History Alcohol Use: none Smoking Status: Never smoker Drug Use: none Exam/Review of Systems Vital Signs Vitals Vital Signs Date Temp Pulse Resp B/P (MAP) Pulse Ox O2 O2 Flow FiO2 Time Delivery Rate 09/28/18 108 25 90/51 (64) 98 Nasal 2.0 16:28 Cannula 09/28/18 100.2 16:12 Exam Exam Gen: Well appearing woman, slightly diaphoretic, supine in bed. Eyes: PERRL, no icterus HEENT: Moist mucous membranes, clear oropharynx Neck: Supple, no lymphadenopathy Card: Regular rate and rhythm, no murmurs Pulm: Clear to auscultation bilaterally Abd: Soft, nontender, nondistended, no hepatosplenomegaly. Ext: No cyanosis/clubbing/edema. Skin: warm, diaphoretic. MAREN POLLOCK MD September 28, 2018 18:56
[2018-09-28] MEDS ORDERED: DEXTROSE 50% 50 ML SYRINGE IV PRN ×2 (19:30)
[2018-09-28] MEDS ORDERED: GLUCOSE GEL 15 GRAM TUBE BUCCAL PRN (19:30)
[2018-09-28] MEDS ORDERED: GLUCOSE GEL 15 GRAM TUBE PO PRN ×2 (19:30)
[2018-09-28] MEDS ORDERED: GLUCAGON 1 MG INJ IM PRN (19:30)
[2018-09-28] MEDS: CEFTRIAXONE 1 GM/50 ML (PMX) 50 ML IVPB SCH (19:59)
[2018-09-28] MEDS: INSULIN ASPART [NOVOLOG] 3 ML PEN SC SCH (20:05)
[2018-09-28] MEDS: metroNIDAZOLE 500 MG/NS (PMX) 100 ML IVPB SCH (21:12)
[2018-09-28] MEDS ORDERED: metroNIDAZOLE (5 MG/ML) IV SYG IV* SCH (22:00)
[2018-09-28] MEDS ORDERED: AL HYDROX/MG HYDROX/SIMETH 30 ML CUP PO PRN (22:30)
[2018-09-28] MEDS: PANTOPRAZOLE (EC) 40 MG TAB PO SCH (22:36)
[2018-09-28 23:58] VITALS: Ht 157.5 cm; Wt 80.4 kg
[2018-09-29] VITALS (11 sets, daily range): BP systolic 93–117; BP diastolic 54–64; PULSE 77–104; RESP 16–18
[2018-09-29] MEDS: ACCU-CHEK XX SCH (02:22)
[2018-09-29] MEDS: metroNIDAZOLE 500 MG/NS (PMX) 100 ML IVPB SCH ×2 (05:24→13:14)
[2018-09-29] MEDS: PANTOPRAZOLE (EC) 40 MG TAB PO SCH (06:21)
[2018-09-29] MEDS ORDERED: POTASSIUM CHLORIDE (SR) 20 MEQ TAB PO ONE (06:53)
--- NOTE | 2018-09-29 07:05 | RADRPT ---
Vent Rate: 91 bpm RR Interval: 664 msec MA Interval: 147 msec QRS Duration: 90 msec QT Interval: 374 msec QTC Interval: 459 msec P-R-T Register: 44 - 31 - 38 degrees Sinus rhythm...normal Electronically Signed By: Jose Luis Johnson
[2018-09-29] MEDS: INSULIN ASPART [NOVOLOG] 3 ML PEN SC SCH ×4 (07:36→22:01)
[2018-09-29] MEDS: ACETAMINOPHEN 325 MG TAB PO PRN ×2 (10:39→21:45)
--- NOTE | 2018-09-29 14:17 | PN ---
Date/Time of Note Date/Time of Note DATE: 09/29/18 TIME: 14:14 Assessment/Plan VTE Prophylaxis Risk score (from Ns)>0 risk: 2 SCD applied (from Ns): Yes Pharmacological prophylaxis: NA/contraindicated Pharm contraindication: low risk/ambulating Lines/Catheters IV [facility] (from [facility] Saline Lock Urinary Cath still in place: No Assessment/Plan Hospital Course 43 yo woman with history of diabetes presents with severe sepsis. #Severe sepsis like secondary to UTI - Fevers, severe hypotension, patient still febrile today - Urine: UA positive for pyuria and leuk esterase, patient denies dysuria but does report frequency - CXR negative for pneumonia. No cough, minimal hypoxia. - No abdominal pain or abnormal LFTs; although she did have two episodes of vomiting. - This is similar to presentation in January. - Empiric ceftriaxone, DC metronidazole - Flu negative -Follow-up on blood and urine cultures #Diabetes -Patient has been told about the importance of continuing meds and following an outpatient PMD - Sliding scale insulin #Microcytic anemia - She reports menses have actually been banana grader than usual recently. No symptoms of GI bleed or other bleeds. -TIBC is normal DC planning: Patient with persistent fevers today, continue antibiotics, follow- up on cultures Result Diagram: 09/29/18 0516 09/29/18 0517 Results 24hrs Laboratory Tests Test 09/28/18 14:52 09/28/18 15:08 09/28/18 16:17 09/28/18 17:07 Urine Color YELLOW Urine Clarity CLOUDY A Urine pH 5.0 Urine Specific 1.027 Onia Urine Ketones 1+ H Urine Nitrite NEGATIVE Urine Bilirubin NEGATIVE Urine Urobilinogen NEGATIVE Urine Leukocyte 1+ H Esterase Urine Microscopic > 182 H RBC Urine Microscopic 51 H WBC Urine Squamous MANY A Epithelial Cells Urine Bacteria FEW A Urine Mucus FEW A Urine Hemoglobin 3+ H Urine Glucose 3+ H Urine Total Protein 3+ H POC Venous Lactate 2.0 Lactic Acid Level 1.2 Bedside Glucose 391 H Test 09/28/18 18:40 09/28/18 19:45 09/29/18 02:02 09/29/18 05:16 Lactic Acid Level 1.3 Bedside Glucose 308 H 141 White Blood Count 7.1 # Red Blood Count 3.95 #L Hemoglobin 8.6 #L Hematocrit 29.1 #L Mean Corpuscular 73.7 L Volume Mean Corpuscular 21.8 L Hemoglobin Mean Corpuscular 29.6 L Hemoglobin Concent Red Cell 17.5 H Distribution Width Platelet Count 213 # Mean Platelet Volume 9.6 Immature 0.300 Granulocytes % Neutrophils % 74.3 Lymphocytes % 16.5 Monocytes % 8.7 Eosinophils % 0.1 Basophils % 0.1 Nucleated Red Blood 0.0 Cells % Immature 0.020 Granulocytes # Neutrophils # 5.3 Lymphocytes # 1.2 Monocytes # 0.6 Eosinophils # 0.0 Basophils # 0.0 Nucleated Red Blood 0.0 Cells # Hemoglobin A1c 14.0 H Ferritin 15.1 Test 09/29/18 05:17 09/29/18 07:32 09/29/18 11:39 Sodium Level 139 Potassium Level 3.3 L Chloride Level 112 H Carbon Dioxide Level 20 L Anion Gap 7 # Blood Urea Nitrogen 9 Creatinine 0.50 Est Glomerular > 60 Filtrat Rate mL/min Glucose Level 148 # Calcium Level 7.3 L Phosphorus Level 2.6 Magnesium Level 1.7 Iron Level < 10 L Total Iron Binding 319 Capacity Percent Iron Saturation Total Bilirubin 0.3 Direct Bilirubin 0.00 Indirect Bilirubin 0.3 Aspartate Amino 28 Transf (AST/SGOT) Alanine 30 Aminotransferase (AL T/SGPT) Alkaline Phosphatase 77 Total Protein 6.0 #L Albumin 2.8 #L Globulin 3.20 Albumin/Globulin 0.87 Ratio Thyroid Stimulating 0.473 Hormone (TSH) Bedside Glucose 157 161 Subjective 24 Hr Interval Summary Constitutional: no complaints Exam/Review of Systems Exam Vitals Vital Signs Date Temp Pulse Resp B/P (MAP) Pulse Ox O2 O2 Flow FiO2 Time Delivery Rate 09/29/18 99 12:55 09/29/18 99.6 16 103/62 95 11:15 (76) 09/29/18 Room Air 03:30 09/28/18 2.0 16:28 Intake and Output 09/28/18 09/28/18 09/29/18 1515:00 23:00 07:00 IntakeIntake Total 4690 ml 500 ml BalanceBalance 4690 ml 500 ml Constitutional: alert, oriented Respiratory: clear to auscultation Cardiovascular: regular rate and rhythm Gastrointestinal: soft; No distended Musculoskeletal: nl extremities to inspection Results Results 24hrs Laboratory Tests Test 09/28/18 14:52 09/28/18 15:08 09/28/18 16:17 09/28/18 17:07 Urine Color YELLOW Urine Clarity CLOUDY A Urine pH 5.0 Urine Specific 1.027 Onia Urine Ketones 1+ H Urine Nitrite NEGATIVE Urine Bilirubin NEGATIVE Urine Urobilinogen NEGATIVE Urine Leukocyte 1+ H Esterase Urine Microscopic > 182 H RBC Urine Microscopic 51 H WBC Urine Squamous MANY A Epithelial Cells Urine Bacteria FEW A Urine Mucus FEW A Urine Hemoglobin 3+ H Urine Glucose 3+ H Urine Total Protein 3+ H POC Venous Lactate 2.0 Lactic Acid Level 1.2 Bedside Glucose 391 H Test 09/28/18 18:40 09/28/18 19:45 09/29/18 02:02 09/29/18 05:16 Lactic Acid Level 1.3 Bedside Glucose 308 H 141 White Blood Count 7.1 # Red Blood Count 3.95 #L Hemoglobin 8.6 #L Hematocrit 29.1 #L Mean Corpuscular 73.7 L Volume Mean Corpuscular 21.8 L Hemoglobin Mean Corpuscular 29.6 L Hemoglobin Concent Red Cell 17.5 H Distribution Width Platelet Count 213 # Mean Platelet Volume 9.6 Immature 0.300 Granulocytes % Neutrophils % 74.3 Lymphocytes % 16.5 Monocytes % 8.7 Eosinophils % 0.1 Basophils % 0.1 Nucleated Red Blood 0.0 Cells % Immature 0.020 Granulocytes # Neutrophils # 5.3 Lymphocytes # 1.2 Monocytes # 0.6 Eosinophils # 0.0 Basophils # 0.0 Nucleated Red Blood 0.0 Cells # Hemoglobin A1c 14.0 H Ferritin 15.1 Test 09/29/18 05:17 09/29/18 07:32 09/29/18 11:39 Sodium Level 139 Potassium Level 3.3 L Chloride Level 112 H Carbon Dioxide Level 20 L Anion Gap 7 # Blood Urea Nitrogen 9 Creatinine 0.50 Est Glomerular > 60 Filtrat Rate mL/min Glucose Level 148 # Calcium Level 7.3 L Phosphorus Level 2.6 Magnesium Level 1.7 Iron Level < 10 L Total Iron Binding 319 Capacity Percent Iron Saturation Total Bilirubin 0.3 Direct Bilirubin 0.00 Indirect Bilirubin 0.3 Aspartate Amino 28 Transf (AST/SGOT) Alanine 30 Aminotransferase (AL T/SGPT) Alkaline Phosphatase 77 Total Protein 6.0 #L Albumin 2.8 #L Globulin 3.20 Albumin/Globulin 0.87 Ratio Thyroid Stimulating 0.473 Hormone (TSH) Bedside Glucose 157 161 Medications Medication Current Medications IV Flush (NS 3 ml) 3 ml PER PROTOCOL IV ; Start 09/28/18 at 19:00 Ondansetron HCl (Zofran Inj) 4 mg Q6H PRN IV NAUSEA/VOMITING; Start 09/28/18 at 19:00 Acetaminophen (Tylenol Tab) 650 mg Q6H PRN PO .PAIN 1-3 OR TEMP Last administered on 09/29/18 10:39; Admin Dose 650 MG; Start 09/28/18 at 19:00 Ceftriaxone Sodium 50 ml @ 100 mls/hr Q24H IVPB Last administered on 09/28/18 19:59; Admin Dose 100 MLS/HR; Start 09/28/18 at 20:00 Diagnostic Test (Pha) (Accu-Chek) 1 ea 02 XX Last administered on 09/29/18at 02:22; Admin Dose 1 EA; Start 09/29/18 at 02:00 Insulin Aspart (Novolog Insulin Pen) NOVOLOG *MODERATE* ALGORITHM WITH MEALS BEDTIME SC Last administered on 09/29/18 11:43; Admin Dose 2 UNIT; Start 09/28/18 at 21:00 Metronidazole 100 ml @ 100 mls/hr Q8 IVPB Last administered on 09/29/18at 13:14; Admin Dose 100 MLS/HR; Start 09/28/18 at 22:00 Miscellaneous Information 1 ea NOTE XX ; Start 09/28/18 at 19:30 Glucose (Glutose) 15 gm Q15M PRN PO DECREASED GLUCOSE; Start 09/28/18 at 19:30 Glucose (Glutose) 22.5 gm Q15M PRN PO DECREASED GLUCOSE; Start 09/28/18 at 19:30 Dextrose (D50w Syringe) 25 ml Q15M PRN IV DECREASED GLUCOSE; Start 09/28/18 at 19:30 Dextrose (D50w Syringe) 50 ml Q15M PRN IV DECREASED GLUCOSE; Start 09/28/18 at 19:30 Glucagon (Glucagen) 1 mg Q15M PRN IM DECREASED GLUCOSE; Start 09/28/18 at 19:30 Glucose (Glutose) 15 gm Q15M PRN BUCCAL DECREASED GLUCOSE; Start 09/28/18 at 19:30 Pantoprazole (Protonix Tab) 40 mg DAILY@0600 PO Last administered on 09/29/18at 06:21; Admin Dose 40 MG; Start 09/28/18 at 22:30 Al Hydrox/Mg Hydrox/Simethicone (Mag-Al Plus) 30 ml Q4H PRN PO HEARTBURN; Start 09/28/18 at 22:30 SHIVANI SABILLON September 29, 2018 14:17
[2018-09-29] MEDS ORDERED: MAGNESIUM OXIDE 400 MG TAB PO ONE (14:30)
[2018-09-29] MEDS: CEFTRIAXONE 1 GM/50 ML (PMX) 50 ML IVPB SCH (21:45)
[2018-09-30] VITALS (10 sets, daily range): BP systolic 97–116; BP diastolic 55–71; PULSE 62–88; RESP 18–20
[2018-09-30] MEDS: ACCU-CHEK XX SCH (02:00)
[2018-09-30] MEDS: PANTOPRAZOLE (EC) 40 MG TAB PO SCH (06:07)
[2018-09-30] MEDS: INSULIN ASPART [NOVOLOG] 3 ML PEN SC SCH ×4 (07:56→20:15)
[2018-09-30] MEDS: ACETAMINOPHEN 325 MG TAB PO PRN ×2 (12:00→19:52)
--- NOTE | 2018-09-30 16:03 | PN ---
Date/Time of Note Date/Time of Note DATE: 09/30/18 TIME: 15:59 Assessment/Plan VTE Prophylaxis Risk score (from Ns)>0 risk: 1 SCD applied (from Ns): Yes Pharmacological prophylaxis: NA/contraindicated Pharm contraindication: low risk/ambulating Lines/Catheters IV [facility] (from [facility] Saline Lock Urinary Cath still in place: No Assessment/Plan Hospital Course Assessment and plan 1. Sepsis secondary to UTI. Follow-up on final cultures. Continue with a ntibiotics. Antipyretics as needed for fever. 2. Bacteremia. Awaiting final cultures. Continue with antibiotics. Appears to be improving. 3. Diabetes. Continue on insulin regimen. Stable at present. 4. Microcytic anemia. Monitor H&H. Stable at present. Disposition and plan. Continue with anabiotic's. Await final cultures. Appears to be overall improving. Monitor for fevers. Discussed plan of care with Dr. Cortes Result Diagram: 09/30/18 0508 09/30/18 0508 Results 24hrs Laboratory Tests Test 09/29/18 17:41 09/29/18 21:40 09/30/18 02:25 09/30/18 05:08 Bedside Glucose 174 198 181 White Blood Count 5.3 # Red Blood Count 4.01 L Hemoglobin 8.6 L Hematocrit 29.6 L Mean Corpuscular 73.8 L Volume Mean Corpuscular 21.4 L Hemoglobin Mean Corpuscular 29.1 L Hemoglobin Concent Red Cell Distribution 17.6 H Width Platelet Count 237 Mean Platelet Volume 9.9 Immature Granulocytes 0.400 % Neutrophils % 40.2 Lymphocytes % 45.9 Monocytes % 12.7 H Eosinophils % 0.6 Basophils % 0.2 Nucleated Red Blood 0.0 Cells % Immature Granulocytes 0.020 # Neutrophils # 2.1 Lymphocytes # 2.4 Monocytes # 0.7 Eosinophils # 0.0 Basophils # 0.0 Nucleated Red Blood 0.0 Cells # Sodium Level 139 Potassium Level 3.4 L Chloride Level 111 H Carbon Dioxide Level 22 Anion Gap 6 Blood Urea Nitrogen 4 L Creatinine 0.48 Est Glomerular Filtrat > 60 Rate mL/min Glucose Level 155 Calcium Level 7.8 L Magnesium Level 2.2 Test 09/30/18 07:51 09/30/18 11:34 Bedside Glucose 224 H 195 Subjective 24 Hr Interval Summary Free Text/Dictation no s/s of distress. denies any pain or dysuria at this time Exam/Review of Systems Exam Vitals Vital Signs Date Temp Pulse Resp B/P (MAP) Pulse Ox O2 O2 Flow FiO2 Time Delivery Rate 09/30/18 97.6 76 20 97/63 (74) 100 Room Air 15:30 09/28/18 2.0 16:28 Intake and Output 09/29/18 09/29/18 09/30/18 1515:00 23:00 07:00 IntakeIntake Total 900 ml BalanceBalance 900 ml Constitutional: alert, oriented Psych: nl mood/affect Head: normocephalic Neck: supple, non-tender Respiratory: clear to auscultation Cardiovascular: regular rate and rhythm Gastrointestinal: soft, non-tender Musculoskeletal: nl extremities to inspection Neurological: CLERK SPECIALIST II-XII intact, nl mental status, nl speech Skin: nl turgor Results Results 24hrs Laboratory Tests Test 09/29/18 17:41 09/29/18 21:40 09/30/18 02:25 09/30/18 05:08 Bedside Glucose 174 198 181 White Blood Count 5.3 # Red Blood Count 4.01 L Hemoglobin 8.6 L Hematocrit 29.6 L Mean Corpuscular 73.8 L Volume Mean Corpuscular 21.4 L Hemoglobin Mean Corpuscular 29.1 L Hemoglobin Concent Red Cell Distribution 17.6 H Width Platelet Count 237 Mean Platelet Volume 9.9 Immature Granulocytes 0.400 % Neutrophils % 40.2 Lymphocytes % 45.9 Monocytes % 12.7 H Eosinophils % 0.6 Basophils % 0.2 Nucleated Red Blood 0.0 Cells % Immature Granulocytes 0.020 # Neutrophils # 2.1 Lymphocytes # 2.4 Monocytes # 0.7 Eosinophils # 0.0 Basophils # 0.0 Nucleated Red Blood 0.0 Cells # Sodium Level 139 Potassium Level 3.4 L Chloride Level 111 H Carbon Dioxide Level 22 Anion Gap 6 Blood Urea Nitrogen 4 L Creatinine 0.48 Est Glomerular Filtrat > 60 Rate mL/min Glucose Level 155 Calcium Level 7.8 L Magnesium Level 2.2 Test 09/30/18 07:51 09/30/18 11:34 Bedside Glucose 224 H 195 Medications Medication Current Medications IV Flush (NS 3 ml) 3 ml PER PROTOCOL IV ; Start 09/28/18 at 19:00 Ondansetron HCl (Zofran Inj) 4 mg Q6H PRN IV NAUSEA/VOMITING; Start 09/28/18 at 19:00 Acetaminophen (Tylenol Tab) 650 mg Q6H PRN PO .PAIN 1-3 OR TEMP Last administered on 09/30/18at 12:00; Admin Dose 650 MG; Start 09/28/18 at 19:00 Ceftriaxone Sodium 50 ml @ 100 mls/hr Q24H IVPB Last administered on 09/29/18at 21:45; Admin Dose 100 MLS/HR; Start 09/28/18 at 20:00 Diagnostic Test (Pha) (Accu-Chek) 1 ea 02 XX Last administered on 09/30/18at 02:00; Admin Dose 1 EA; Start 09/29/18 at 02:00 Insulin Aspart (Novolog Insulin Pen) NOVOLOG *MODERATE* ALGORITHM WITH MEALS BEDTIME SC Last administered on 09/30/18at 11:38; Admin Dose 4 UNIT; Start 09/28/18 at 21:00 Miscellaneous Information 1 ea NOTE XX ; Start 09/28/18 at 19:30 Glucose (Glutose) 15 gm Q15M PRN PO DECREASED GLUCOSE; Start 09/28/18 at 19:30 Glucose (Glutose) 22.5 gm Q15M PRN PO DECREASED GLUCOSE; Start 09/28/18 at 19:30 Dextrose (D50w Syringe) 25 ml Q15M PRN IV DECREASED GLUCOSE; Start 09/28/18 at 19:30 Dextrose (D50w Syringe) 50 ml Q15M PRN IV DECREASED GLUCOSE; Start 09/28/18 at 19:30 Glucagon (Glucagen) 1 mg Q15M PRN IM DECREASED GLUCOSE; Start 09/28/18 at 19:30 Glucose (Glutose) 15 gm Q15M PRN BUCCAL DECREASED GLUCOSE; Start 09/28/18 at 19:30 Pantoprazole (Protonix Tab) 40 mg DAILY@0600 PO Last administered on 09/30/18at 06:07; Admin Dose 40 MG; Start 09/28/18 at 22:30 Al Hydrox/Mg Hydrox/Simethicone (Mag-Al Plus) 30 ml Q4H PRN PO HEARTBURN; Start 09/28/18 at 22:30 NIKI HAWLEY NP Sep 30, 2018 16:03
[2018-09-30] MEDS: CEFTRIAXONE 1 GM/50 ML (PMX) 50 ML IVPB SCH (20:16)
[2018-10-01] VITALS (11 sets, daily range): BP systolic 104–135; BP diastolic 61–79; PULSE 63–78; RESP 18–20
[2018-10-01] MEDS: ACCU-CHEK XX SCH (02:00)
[2018-10-01] MEDS: PANTOPRAZOLE (EC) 40 MG TAB PO SCH (06:02)
[2018-10-01] MEDS: IBUPROFEN 600 MG TAB PO PRN ×2 (06:05→20:26)
[2018-10-01] MEDS: INSULIN ASPART [NOVOLOG] 3 ML PEN SC SCH ×5 (07:53→20:34)
--- NOTE | 2018-10-01 12:59 | PN ---
Date/Time of Note Date/Time of Note DATE: 10/01/18 TIME: 12:55 Assessment/Plan VTE Prophylaxis Risk score (from Ns)>0 risk: 1 SCD applied (from Ns): Yes Pharmacological prophylaxis: NA/contraindicated Pharm contraindication: low risk/ambulating Lines/Catheters IV [facility]from [facility] Saline Lock Urinary Cath still in place: No Assessment/Plan Hospital Course Assessment and plan 1. Sepsis secondary to UTI. - Culture showing ESBL - ID consult to follow - Continue with antibiotics. - Antipyretics as needed for fever. 2. Bacteremia. - Awaiting final cultures. - Continue with antibiotics. - Appears to be improving. 3. Diabetes. - Continue on insulin regimen. - Stable at present. 4. Microcytic anemia. - Monitor H&H. Stable at present. Disposition and plan. ID consult to follow for ESBL. f/u recommendations. continue inhouse monitoring. Discussed plan of care with Dr. Cortes Result Diagram: 09/30/18 0508 09/30/18 0508 Results 24hrs Laboratory Tests Test 09/30/18 16:41 09/30/18 20:07 10/01/18 01:30 10/01/18 07:34 Bedside Glucose 203 238 H 256 H 209 Test 10/01/18 11:59 Bedside Glucose 174 Subjective 24 Hr Interval Summary Free Text/Dictation reports less pain on back Exam/Review of Systems Exam Vitals Vital Signs Date Temp Pulse Resp B/P (MAP) Pulse Ox O2 O2 Flow FiO2 Time Delivery Rate 10/01/18 Room Air 12:52 10/01/18 63 12:10 10/01/18 98.4 20 135/73 98 11:40 (93) 09/28/18 2.0 16:28 Intake and Output 09/30/18 09/30/18 10/01/18 1515:00 23:00 07:00 IntakeIntake Total 2000 ml 900 ml BalanceBalance 2000 ml 900 ml Constitutional: alert, oriented Psych: nl mood/affect Head: normocephalic Neck: supple, non-tender Respiratory: clear to auscultation Cardiovascular: regular rate and rhythm Gastrointestinal: soft Musculoskeletal: nl extremities to inspection Neurological: MARKETING REPORTING ANALYST II-XII intact, nl mental status, nl speech Results Results 24hrs Laboratory Tests Test 09/30/18 16:41 09/30/18 20:07 10/01/18 01:30 10/01/18 07:34 Bedside Glucose 203 238 H 256 H 209 Test 10/01/18 11:59 Bedside Glucose 174 Medications Medication Current Medications IV Flush (NS 3 ml) 3 ml PER PROTOCOL IV ; Start 09/28/18 at 19:00 Ondansetron HCl (Zofran Inj) 4 mg Q6H PRN IV NAUSEA/VOMITING; Start 09/28/18 at 19:00 Acetaminophen (Tylenol Tab) 650 mg Q6H PRN PO .PAIN 1-3 OR TEMP Last administered on 09/30/18at 19:52; Admin Dose 650 MG; Start 09/28/18 at 19:00 Ceftriaxone Sodium 50 ml @ 100 mls/hr Q24H IVPB Last administered on 09/30/18at 20:16; Admin Dose 100 MLS/HR; Start 09/28/18 at 20:00 Diagnostic Test (Pha) (Accu-Chek) 1 ea 02 XX Last administered on 09/30/18at 02 :00; Admin Dose 1 EA; Start 09/29/18 at 02:00 Insulin Aspart (Novolog Insulin Pen) NOVOLOG *MODERATE* ALGORITHM WITH MEALS BEDTIME SC Last administered on 10/01/18at 12:10; Admin Dose 2 UNIT; Start at 21:00 Miscellaneous Information 1 ea NOTE XX ; Start 09/28/18 at 19:30 Glucose (Glutose) 15 gm Q15M PRN PO DECREASED GLUCOSE; Start 09/28/18 at 19:30 Glucose (Glutose) 22.5 gm Q15M PRN PO DECREASED GLUCOSE; Start 09/28/18 at 19:30 Dextrose (D50w Syringe) 25 ml Q15M PRN IV DECREASED GLUCOSE; Start 09/28/18 at 19:30 Dextrose (D50w Syringe) 50 ml Q15M PRN IV DECREASED GLUCOSE; Start 09/28/18 at 19:30 Glucagon (Glucagen) 1 mg Q15M PRN IM DECREASED GLUCOSE; Start 09/28/18 at 19:30 Glucose (Glutose) 15 gm Q15M PRN BUCCAL DECREASED GLUCOSE; Start 09/28/18 at 19:30 Pantoprazole (Protonix Tab) 40 mg DAILY@0600 PO Last administered on 10/01/18at 06:02; Admin Dose 40 MG; Start 09/28/18 at 22:30 Al Hydrox/Mg Hydrox/Simethicone (Mag-Al Plus) 30 ml Q4H PRN PO HEARTBURN; Start 09/28/18 at 22:30 Ibuprofen (Motrin) 600 mg Q6H PRN PO headache Last administered on 10/01/18at 06:05; Admin Dose 600 MG; Start 10/01/18 at 00:00 NIKI HAWLEY NP Oct 01, 2018 12:59
--- NOTE | 2018-10-01 14:55 | CONS ---
DATE OF ADMISSION: 09/28/2018 DATE OF CONSULTATION: 10/01/2018 TYPE OF CONSULTATION: Infectious disease. REASON FOR CONSULTATION: Antibiotic management. HISTORY OF PRESENT ILLNESS: Linda Salas is a 43-year-old female who was admitted o n 09/28/2018 with nausea and vomiting. She has a history of non-insulin dependent diabetes mellitus. She has a significant weight loss from 244 to 165 intentional. Her nausea and fever have been germain g off of 24 hours prior to admission with generalized malaise. She denies any shortness of breath. The patient's sugars have been elevated in the past. She has a history of pyelonephritis and present ed similarly. PAST MEDICAL HISTORY: Operations as outlined. FAMILY HISTORY: Noncontributory except for diabetes. SOCIAL HISTORY: She does not smoke, drink or abuse drugs. ALLERGIES: NONE TO PENICILLIN, SULFA OR FOODS. PHYSICAL EXAMINATION: VITAL SIGNS: She presents with a temperature up to 106.6. SKIN: Without generalized rash. HEENT: Within normal limits. NECK: Supple. LYMPH NODES: None palpable. CHEST: Decreased breath sounds at the bases. HEART: Without murmur or gallop. She is tachycardic. ABDOMEN: Soft, nontender without organosplenomegaly or masses. EXTREMITIES: Without cyanosis, clubbing or edema. RECTAL AND GENITAL: Deferred. NEUROLOGIC: No focal neurological abnormalities. HOSPITAL COURSE: White count 5.9, H and H 11.3 and 38, platelet count 272,000. BUN and creatinine i s 10/0.64, glucose of 326. As noted, her white count was 5.9 with 46% neutrophils, 14% bands with a left shift. The patient was started on vancomycin and cefepime. Chest x-ray shows shallow lung volu mes, mild retrocardiac opacity which may represent atelectasis. She had high grade fever of 106.6, h yperglycemia on presentation consistent with pyelonephritis. Urinalysis showed 1+ leukocyte esterase and 51 white cells per high powered field. The patient has blood cultures positive for E. coli and urine positive for E. coli which is sensitive to cefotaxime. The patient is on ceftriaxone. Influen za A and B were negative. The patient has sepsis secondary to UTI, was bacteremic appears to be impr oving. White count is 5.3, BUN and creatinine is 4/0.48. She is resistant to Cipro and Levaquin, so she should continue on her ceftriaxone for the time being. I will dictate my findings to the hospit alist. Dictated By: TOMMIE VILLARREAL MD, JD/MIKE Conf#: [id number] DID#: [id number] CC: MAREN POLLOCK MD;*EndCC*
[2018-10-01] MEDS: CEFTRIAXONE 1 GM/50 ML (PMX) 50 ML IVPB SCH (20:27)
[2018-10-02] VITALS (14 sets, daily range): BP systolic 16–132; BP diastolic 57–83; PULSE 56–91; RESP 18–20
[2018-10-02] MEDS: ACCU-CHEK XX SCH (02:00)
[2018-10-02] MEDS: PANTOPRAZOLE (EC) 40 MG TAB PO SCH (06:00)
[2018-10-02] MEDS: INSULIN GLARGINE [LANTus] (100 UNITS/ML) SYG SC SCH (07:51)
[2018-10-02] MEDS: INSULIN ASPART [NOVOLOG] 3 ML PEN SC SCH ×7 (07:51→20:22)
[2018-10-02] MEDS: ERTAPENEM SODIUM 1 GM in SOD CHLORIDE 0.9% 100 ML IVPB SCH (12:48)
--- NOTE | 2018-10-02 15:00 | CONS ---
Assessment/Plan Assessment/Plan Hospital Course (Demo Recall) Patient is alert looks comfortable denies pain no fevers overnight no labs today Microbiology: Urine culture grew E. coli blood culture grew E. coli ESBL Antimicrobials: Patient was started on Invanz today Physical examination: Obese well-developed middle-aged woman who is alert in no distress. Head atraumatic normocephalic neck is supple chest rise symmetrical breath sounds clear. Heart: S1-S2. Abdomen soft bowel sounds present. Extremities without cyanosis. Assessment: 1. E. coli ESBL bacteremia secondary to urinary tract infection 2. Diabetes Plan: We will repeat blood cultures continue Invanz for 2 weeks Consultation Date/Type/Reason Admit Date/Time September 28, 2018 at 17:33 Initial Consult Date Type of Consult id Date/Time of Note DATE: 10/02/18 TIME: 14:59 Exam/Review of Systems Exam Vitals Vital Signs Date Temp Pulse Resp B/P (MAP) Pulse Ox O2 O2 Flow FiO2 Time Delivery Rate 10/02/18 74 12:00 10/02/18 97.8 20 111/73 97 11:17 (86) 10/01/18 Room Air 16:34 09/28/18 2.0 16:28 Intake and Output 10/01/18 10/01/18 10/02/18 1515:00 23:00 07:00 IntakeIntake Total 800 ml 2000 ml BalanceBalance 800 ml 2000 ml Results Result Diagram: 09/30/18 0508 09/30/18 0508 Results 24hrs Laboratory Tests Test 10/01/18 17:14 10/01/18 20:33 10/02/18 07:50 10/02/18 12:14 Bedside Glucose 146 157 238 H 193 Medications Medication Current Medications IV Flush (NS 3 ml) 3 ml PER PROTOCOL IV ; Start 09/28/18 at 19:00 Ondansetron HCl (Zofran Inj) 4 mg Q6H PRN IV NAUSEA/VOMITING; Start 09/28/18 at 19:00 Acetaminophen (Tylenol Tab) 650 mg Q6H PRN PO .PAIN 1-3 OR TEMP Last administered on 09/30/18at 19:52; Admin Dose 650 MG; Start 09/28/18 at 19:00 Diagnostic Test (Pha) (Accu-Chek) 1 ea 02 XX Last administered on 09/30/18at 02:00; Admin Dose 1 EA; Start 09/29/18 at 02:00 Insulin Aspart (Novolog Insulin Pen) NOVOLOG *MODERATE* ALGORITHM WITH MEALS BEDTIME SC Last administered on 10/02/18at 12:16; Admin Dose 4 UNIT; Start 09/28/18 at 21:00 Miscellaneous Information 1 ea NOTE XX ; Start 09/28/18 at 19:30 Glucose (Glutose) 15 gm Q15M PRN PO DECREASED GLUCOSE; Start 09/28/18 at 19:30 Glucose (Glutose) 22.5 gm Q15M PRN PO DECREASED GLUCOSE; Start 09/28/18 at 19:30 Dextrose (D50w Syringe) 25 ml Q15M PRN IV DECREASED GLUCOSE; Start 09/28/18 at 19:30 Dextrose (D50w Syringe) 50 ml Q15M PRN IV DECREASED GLUCOSE; Start 09/28/18 at 19:30 Glucagon (Glucagen) 1 mg Q15M PRN IM DECREASED GLUCOSE; Start 09/28/18 at 19:30 Glucose (Glutose) 15 gm Q15M PRN BUCCAL DECREASED GLUCOSE; Start 09/28/18 at 19:30 Pantoprazole (Protonix Tab) 40 mg DAILY@0600 PO Last administered on 10/02/18at 06:00; Admin Dose 40 MG; Start 09/28/18 at 22:30 Al Hydrox/Mg Hydrox/Simethicone (Mag-Al Plus) 30 ml Q4H PRN PO HEARTBURN; Start 09/28/18 at 22:30 Ibuprofen (Motrin) 600 mg Q6H PRN PO headache Last administered on 10/01/18at 20:26; Admin Dose 600 MG; Start 10/01/18 at 00:00 Insulin Glargine (Lantus) 12 units DAILY@0800 SC Last administered on 10/02/18at 07:51; Admin Dose 12 UNITS; Start 10/02/18 at 08:00 Insulin Aspart (Novolog Insulin Pen) 4 unit WITH MEALS SC Last administered on 10/02/18at 12:16; Admin Dose 4 UNIT; Start 10/01/18 at 18:00 Ertapenem 1 gm/ Sodium Chloride 100 ml @ 200 mls/hr Q24H IVPB Last administered on 10/02/18at 12:48; Admin Dose 200 MLS/HR; Start 10/02/18 at 13:00 MARIA FERNANDA DAVALOS NP Oct 02, 2018 15:00
[2018-10-02] MEDS: IBUPROFEN 600 MG TAB PO PRN (15:20)
--- NOTE | 2018-10-02 16:22 | PN ---
Date/Time of Note Date/Time of Note DATE: 10/02/18 TIME: 16:20 Assessment/Plan VTE Prophylaxis Risk score (from Ns)>0 risk: 1 SCD applied (from Ns): Yes Pharmacological prophylaxis: NA/contraindicated Pharm contraindication: low risk/ambulating Lines/Catheters IV Catheter Type (from Nrsg): Saline Lock Urinary Cath still in place: No Assessment/Plan Hospital Course Assessment and plan 1. Sepsis secondary to UTI. - Culture showing ESBL - ID consult to follow - Continue with antibiotics - invanz - Antipyretics as needed for fever. - improving 2. Bacteremia. - Continue with antibiotics. - Appears to be improving. 3. Diabetes. - Continue on insulin regimen. - Stable at present. 4. Microcytic anemia. - Monitor H&H. Stable at present. Disposition and plan. ID consult to follow for ESBL. case management consulted to set up invanz x2 weeks. Await set up prior to d/c Discussed plan of care with Dr. Sutton Result Diagram: 09/30/18 0508 09/30/18 0508 Results 24hrs Laboratory Tests Test 10/01/18 17:14 10/01/18 20:33 10/02/18 07:50 10/02/18 12:14 Bedside Glucose 146 157 238 H 193 Subjective 24 Hr Interval Summary Free Text/Dictation no report of pain at this time Exam/Review of Systems Exam Vitals Vital Signs Date Temp Pulse Resp B/P (MAP) Pulse Ox O2 O2 Flow FiO2 Time Delivery Rate 10/02/18 98.5 74 20 131/82 97 15:15 (98) 10/01/18 Room Air 16:34 09/28/18 2.0 16:28 Intake and Output 10/01/18 10/01/18 10/02/18 1515:00 23:00 07:00 IntakeIntake Total 800 ml 2000 ml BalanceBalance 800 ml 2000 ml Exam Constitutional: alert, oriented Psych: nl mood/affect Head: normocephalic Neck: supple, non-tender Respiratory: clear to auscultation Cardiovascular: regular rate and rhythm Gastrointestinal: soft Musculoskeletal: nl extremities to inspection Neurological: CARE COORDINATOR II-XII intact, nl mental status, nl speech Results Results 24hrs Laboratory Tests Test 10/01/18 17:14 10/01/18 20:33 10/02/18 07:50 10/02/18 12:14 Bedside Glucose 146 157 238 H 193 Medications Medication Current Medications IV Flush (NS 3 ml) 3 ml PER PROTOCOL IV ; Start 09/28/18 at 19:00 Ondansetron HCl (Zofran Inj) 4 mg Q6H PRN IV NAUSEA/VOMITING; Start 09/28/18 at 19:00 Acetaminophen (Tylenol Tab) 650 mg Q6H PRN PO .PAIN 1-3 OR TEMP Last administered on 09/30/18at 19:52; Admin Dose 650 MG; Start 09/28/18 at 19:00 Diagnostic Test (Pha) (Accu-Chek) 1 ea 02 XX Last administered on 09/30/18at 02:00; Admin Dose 1 EA; Start 09/29/18 at 02:00 Insulin Aspart (Novolog Insulin Pen) NOVOLOG *MODERATE* ALGORITHM WITH MEALS BEDTIME SC Last administered on 10/02/18 12:16; Admin Dose 4 UNIT; Start 09/28/18 at 21:00 Miscellaneous Information 1 ea NOTE XX ; Start 09/28/18 at 19:30 Glucose (Glutose) 15 gm Q15M PRN PO DECREASED GLUCOSE; Start 09/28/18 at 19:30 Glucose (Glutose) 22.5 gm Q15M PRN PO DECREASED GLUCOSE; Start 09/28/18 at 19:30 Dextrose (D50w Syringe) 25 ml Q15M PRN IV DECREASED GLUCOSE; Start 09/28/18 at 19:30 Dextrose (D50w Syringe) 50 ml Q15M PRN IV DECREASED GLUCOSE; Start 09/28/18 at 19:30 Glucagon (Glucagen) 1 mg Q15M PRN IM DECREASED GLUCOSE; Start 09/28/18 at 19:30 Glucose (Glutose) 15 gm Q15M PRN BUCCAL DECREASED GLUCOSE; Start 09/28/18 at 19:30 Pantoprazole (Protonix Tab) 40 mg DAILY@0600 PO Last administered on 10/02/18at 06:00; Admin Dose 40 MG; Start 09/28/18 at 22:30 Al Hydrox/Mg Hydrox/Simethicone (Mag-Al Plus) 30 ml Q4H PRN PO HEARTBURN; Start 09/28/18 at 22:30 Ibuprofen (Motrin) 600 mg Q6H PRN PO headache Last administered on 10/02/18at 15:20; Admin Dose 600 MG; Start 10/01/18 at 00:00 Insulin Glargine (Lantus) 12 units DAILY@0800 SC Last administered on 10/02/18 07:51; Admin Dose 12 UNITS; Start 10/02/18 at 08:00 Insulin Aspart (Novolog Insulin Pen) 4 unit WITH MEALS SC Last administered on 10/02/18 12:16; Admin Dose 4 UNIT; Start 10/01/18 at 18:00 Ertapenem 1 gm/ Sodium Chloride 100 ml @ 200 mls/hr Q24H IVPB Last administered on 10/02/18 12:48; Admin Dose 200 MLS/HR; Start 10/02/18 at 13:00 NKII HAWLEY NP Oct 02, 2018 16:22
[2018-10-03] VITALS (12 sets, daily range): BP systolic 114–124; BP diastolic 72–79; PULSE 64–81; RESP 20
[2018-10-03] MEDS: ACCU-CHEK XX SCH (02:00)
[2018-10-03] MEDS: IBUPROFEN 600 MG TAB PO PRN ×2 (03:32→13:51)
[2018-10-03] MEDS: PANTOPRAZOLE (EC) 40 MG TAB PO SCH (05:48)
[2018-10-03] MEDS: INSULIN GLARGINE [LANTus] (100 UNITS/ML) SYG SC SCH (08:53)
[2018-10-03] MEDS: INSULIN ASPART [NOVOLOG] 3 ML PEN SC SCH ×7 (08:54→20:22)
[2018-10-03] MEDS: ERTAPENEM SODIUM 1 GM in SOD CHLORIDE 0.9% 100 ML IVPB SCH (13:39)
--- NOTE | 2018-10-03 15:30 | CONS ---
Assessment/Plan Assessment/Plan Hospital Course (Demo Recall) Patient is alert feels good Microbiology: Urine culture grew E. coli blood culture grew E. coli ESBL Antimicrobials: Patient was started on Invanz today Physical examination: Obese well-developed middle-aged woman who is alert in no distress. Head atraumatic normocephalic neck is supple chest rise symmetrical breath sounds clear. Heart: S1-S2. Abdomen soft bowel sounds present. Extremities without cyanosis. Assessment: 1. E. coli ESBL bacteremia secondary to urinary tract infection 2. Diabetes Plan: Stable, repeat blood cultures negative, continue antibiotics to complete 2 weeks, pending PICC Consultation Date/Type/Reason Admit Date/Time September 28, 2018 at 17:33 Initial Consult Date Type of Consult id Date/Time of Note DATE: 10/03/18 TIME: 15:29 Exam/Review of Systems Exam Vitals Vital Signs Date Temp Pulse Resp B/P (MAP) Pulse Ox O2 O2 Flow FiO2 Time Delivery Rate 10/03/18 73 12:27 10/03/18 98.0 20 114/78 97 11:55 (90) 10/01/18 Room Air 16:34 Intake and Output 10/02/18 10/02/18 10/03/18 1515:00 23:00 07:00 IntakeIntake Total 1250 ml 1000 ml BalanceBalance 1250 ml 1000 ml Results Result Diagram: 10/03/18 0534 10/03/18 0534 Results 24hrs Laboratory Tests Test 10/02/18 16:35 10/02/18 20:16 10/03/18 05:34 10/03/18 08:42 Bedside Glucose 220 137 271 H White Blood Count 6.0 Red Blood Count 4.47 Hemoglobin 9.5 L Hematocrit 32.6 L Mean Corpuscular Volume 72.9 L Mean Corpuscular 21.3 L Hemoglobin Mean Corpuscular 29.1 L Hemoglobin Concent Red Cell Distribution 17.4 H Width Platelet Count 324 # Mean Platelet Volume 9.1 Immature Granulocytes % 0.300 Neutrophils % 45.5 Lymphocytes % 45.1 Monocytes % 7.3 Eosinophils % 1.5 Basophils % 0.3 Nucleated Red Blood 0.0 Cells % Immature Granulocytes # 0.020 Neutrophils # 2.7 Lymphocytes # 2.7 Monocytes # 0.4 Eosinophils # 0.1 Basophils # 0.0 Nucleated Red Blood 0.0 Cells # Sodium Level 140 Potassium Level 3.7 Chloride Level 107 Carbon Dioxide Level 27 Anion Gap 6 Blood Urea Nitrogen 12 Creatinine 0.52 Est Glomerular Filtrat > 60 Rate mL/min Glucose Level 232 H Calcium Level 8.1 L Test 10/03/18 11:59 Bedside Glucose 163 Medications Medication Current Medications IV Flush (NS 3 ml) 3 ml PER PROTOCOL IV ; Start 09/28/18 at 19:00 Ondansetron HCl (Zofran Inj) 4 mg Q6H PRN IV NAUSEA/VOMITING; Start 09/28/18 at 19:00 Acetaminophen (Tylenol Tab) 650 mg Q6H PRN PO .PAIN 1-3 OR TEMP Last administered on 09/30/18at 19:52; Admin Dose 650 MG; Start 09/28/18 at 19:00 Diagnostic Test (Pha) (Accu-Chek) 1 ea 02 XX Last administered on 09/30/18at 02:00; Admin Dose 1 EA; Start 09/29/18 at 02:00 Insulin Aspart (Novolog Insulin Pen) NOVOLOG *MODERATE* ALGORITHM WITH MEALS BEDTIME SC Last administered on 10/03/18at 12:07; Admin Dose 2 UNIT; Start 09/28/18 at 21:00 Miscellaneous Information 1 ea NOTE XX ; Start 09/28/18 at 19:30 Glucose (Glutose) 15 gm Q15M PRN PO DECREASED GLUCOSE; Start 09/28/18 at 19:30 Glucose (Glutose) 22.5 gm Q15M PRN PO DECREASED GLUCOSE; Start 09/28/18 at 19:30 Dextrose (D50w Syringe) 25 ml Q15M PRN IV DECREASED GLUCOSE; Start 09/28/18 at 19:30 Dextrose (D50w Syringe) 50 ml Q15M PRN IV DECREASED GLUCOSE; Start 09/28/18 at 19:30 Glucagon (Glucagen) 1 mg Q15M PRN IM DECREASED GLUCOSE; Start 09/28/18 at 19:30 Glucose (Glutose) 15 gm Q15M PRN BUCCAL DECREASED GLUCOSE; Start 09/28/18 at 19:30 Pantoprazole (Protonix Tab) 40 mg DAILY@0600 PO Last administered on 10/03/18at 05:48; Admin Dose 40 MG; Start 09/28/18 at 22:30 Al Hydrox/Mg Hydrox/Simethicone (Mag-Al Plus) 30 ml Q4H PRN PO HEARTBURN; Start 09/28/18 at 22:30 Ibuprofen (Motrin) 600 mg Q6H PRN PO headache Last administered on 10/03/18 13:51; Admin Dose 600 MG; Start 10/01/18 at 00:00 Insulin Glargine (Lantus) 12 units DAILY@0800 SC Last administered on 10/03/18 08:53; Admin Dose 12 UNITS; Start 10/02/18 at 08:00 Insulin Aspart (Novolog Insulin Pen) 4 unit WITH MEALS SC Last administered on 10/03/18 12:06; Admin Dose 4 UNIT; Start 10/01/18 at 18:00 Ertapenem 1 gm/ Sodium Chloride 100 ml @ 200 mls/hr Q24H IVPB Last administered on 10/03/18 13:39; Admin Dose 200 MLS/HR; Start 10/02/18 at 13:00 MARIA FERNANDA DAVALOS NP Oct 03, 2018 15:30
--- NOTE | 2018-10-03 21:33 | PN ---
Date/Time of Note Date/Time of Note DATE: 10/03/18 Assessment/Plan VTE Prophylaxis Risk score (from [facility] [place] risk: 1 SCD applied (from Ns): Yes Pharmacological prophylaxis: NA/contraindicated Pharm contraindication: low risk/ambulating Lines/Catheters [facility] Type [facility]from [facility] Saline Lock Urinary Cath still in place: No Assessment/Plan Hospital Course Assessment and plan 1. Sepsis secondary to UTI. - Culture showing ESBL - ID consult to follow - Continue with antibiotics - invanz - Antipyretics as needed for fever. - improving 2. Bacteremia. - Continue with antibiotics. - Appears to be improving. 3. Diabetes. - Continue on insulin regimen. - Stable at present. 4. Microcytic anemia. - Monitor H&H. Stable at present. Disposition and plan. ID consult to follow for ESBL. case management consulted to set up invanz x2 weeks. Patient without insurance. f/u case management for dispo Discussed plan of care with Dr. Sutton Result Diagram: 10/03/18 0534 10/03/18 0534 Results 24hrs Laboratory Tests Test 10/03/18 05:34 10/03/18 08:42 10/03/18 11:59 10/03/18 17:44 White Blood Count 6.0 Red Blood Count 4.47 Hemoglobin 9.5 L Hematocrit 32.6 L Mean Corpuscular Volume 72.9 L Mean Corpuscular 21.3 L Hemoglobin Mean Corpuscular 29.1 L Hemoglobin Concent Red Cell Distribution 17.4 H Width Platelet Count 324 # Mean Platelet Volume 9.1 Immature Granulocytes % 0.300 Neutrophils % 45.5 Lymphocytes % 45.1 Monocytes % 7.3 Eosinophils % 1.5 Basophils % 0.3 Nucleated Red Blood 0.0 Cells % Immature Granulocytes # 0.020 Neutrophils # 2.7 Lymphocytes # 2.7 Monocytes # 0.4 Eosinophils # 0.1 Basophils # 0.0 Nucleated Red Blood 0.0 Cells # Sodium Level 140 Potassium Level 3.7 Chloride Level 107 Carbon Dioxide Level 27 Anion Gap 6 Blood Urea Nitrogen 12 Creatinine 0.52 Est Glomerular Filtrat > 60 Rate mL/min Glucose Level 232 H Calcium Level 8.1 L Bedside Glucose 271 H 163 241 H Test 10/03/18 20:10 Bedside Glucose 145 Subjective 24 Hr Interval Summary Free Text/Dictation comfortable at present. denies any pain Exam/Review of Systems Exam Vitals Vital Signs Date Temp Pulse Resp B/P (MAP) Pulse Ox O2 O2 Flow FiO2 Time Delivery Rate 10/03/18 75 20:00 10/03/18 98.5 20 124/79 97 19:13 (94) 10/01/18 Room Air 16:34 Intake and Output 10/02/18 10/02/18 10/03/18 1515:00 23:00 07:00 IntakeIntake Total 1250 ml 1000 ml BalanceBalance 1250 ml 1000 ml Exam Constitutional: alert, oriented Psych: nl mood/affect Head: normocephalic Neck: supple, non-tender Respiratory: clear to auscultation Cardiovascular: regular rate and rhythm Gastrointestinal: soft Musculoskeletal: nl extremities to inspection Neurological: UNDERWRITING MANAGER II-XII intact, nl mental status, nl speech Results Results 24hrs Laboratory Tests Test 10/03/18 05:34 10/03/18 08:42 10/03/18 11:59 10/03/18 17:44 White Blood Count 6.0 Red Blood Count 4.47 Hemoglobin 9.5 L Hematocrit 32.6 L Mean Corpuscular Volume 72.9 L Mean Corpuscular 21.3 L Hemoglobin Mean Corpuscular 29.1 L Hemoglobin Concent Red Cell Distribution 17.4 H Width Platelet Count 324 # Mean Platelet Volume 9.1 Immature Granulocytes % 0.300 Neutrophils % 45.5 Lymphocytes % 45.1 Monocytes % 7.3 Eosinophils % 1.5 Basophils % 0.3 Nucleated Red Blood 0.0 Cells % Immature Granulocytes # 0.020 Neutrophils # 2.7 Lymphocytes # 2.7 Monocytes # 0.4 Eosinophils # 0.1 Basophils # 0.0 Nucleated Red Blood 0.0 Cells # Sodium Level 140 Potassium Level 3.7 Chloride Level 107 Carbon Dioxide Level 27 Anion Gap 6 Blood Urea Nitrogen 12 Creatinine 0.52 Est Glomerular Filtrat > 60 Rate mL/min Glucose Level 232 H Calcium Level 8.1 L Bedside Glucose 271 H 163 241 H Test 10/03/18 20:10 Bedside Glucose 145 Medications Medication Current Medications IV Flush (NS 3 ml) 3 ml PER PROTOCOL IV ; Start 09/28/18 at 19:00 Ondansetron HCl (Zofran Inj) 4 mg Q6H PRN IV NAUSEA/VOMITING; Start 09/28/18 at 19:00 Acetaminophen (Tylenol Tab) 650 mg Q6H PRN PO .PAIN 1-3 OR TEMP Last admini stered on 09/30/18 19:52; Admin Dose 650 MG; Start 09/28/18 at 19:00 Diagnostic Test (Pha) (Accu-Chek) 1 ea 02 XX Last administered on 09/30/18at 02:00; Admin Dose 1 EA; Start 09/29/18 at 02:00 Insulin Aspart (Novolog Insulin Pen) NOVOLOG *MODERATE* ALGORITHM WITH MEALS BEDTIME SC Last administered on 10/03/18 17:51; Admin Dose 6 UNIT; Start 09/28/18 at 21:00 Miscellaneous Information 1 ea NOTE XX ; Start 09/28/18 at 19:30 Glucose (Glutose) 15 gm Q15M PRN PO DECREASED GLUCOSE; Start 09/28/18 at 19:30 Glucose (Glutose) 22.5 gm Q15M PRN PO DECREASED GLUCOSE; Start 09/28/18 at 19:30 Dextrose (D50w Syringe) 25 ml Q15M PRN IV DECREASED GLUCOSE; Start 09/28/18 at 19:30 Dextrose (D50w Syringe) 50 ml Q15M PRN IV DECREASED GLUCOSE; Start 09/28/18 at 19:30 Glucagon (Glucagen) 1 mg Q15M PRN IM DECREASED GLUCOSE; Start 09/28/18 at 19:30 Glucose (Glutose) 15 gm Q15M PRN BUCCAL DECREASED GLUCOSE; Start 09/28/18 at 19:30 Pantoprazole (Protonix Tab) 40 mg DAILY@0600 PO Last administered on 10/03/18 05:48; Admin Dose 40 MG; Start 09/28/18 at 22:30 Al Hydrox/Mg Hydrox/Simethicone (Mag-Al Plus) 30 ml Q4H PRN PO HEARTBURN; Start 09/28/18 at 22:30 Ibuprofen (Motrin) 600 mg Q6H PRN PO headache Last administered on 10/03/18 13:51; Admin Dose 600 MG; Start 10/01/18 at 00:00 Insulin Glargine (Lantus) 12 units DAILY@0800 SC Last administered on 10/03/18 08:53; Admin Dose 12 UNITS; Start 10/02/18 at 08:00 Insulin Aspart (Novolog Insulin Pen) 4 unit WITH MEALS SC Last administered on 10/03/18 17:51; Admin Dose 4 UNIT; Start 10/01/18 at 18:00 Ertapenem 1 gm/ Sodium Chloride 100 ml @ 200 mls/hr Q24H IVPB Last administered on 10/03/18 13:39; Admin Dose 200 MLS/HR; Start 10/02/18 at 13:00 NIKI HAWLEY NP Oct 03, 2018 21:32
[2018-10-04] VITALS (12 sets, daily range): BP systolic 108–126; BP diastolic 65–75; PULSE 63–86; RESP 18–20
[2018-10-04] MEDS: ACCU-CHEK XX SCH (02:00)
[2018-10-04] MEDS: PANTOPRAZOLE (EC) 40 MG TAB PO SCH (05:23)
[2018-10-04] MEDS: IBUPROFEN 600 MG TAB PO PRN (05:26)
[2018-10-04] MEDS: INSULIN GLARGINE [LANTus] (100 UNITS/ML) SYG SC SCH (08:27)
[2018-10-04] MEDS: INSULIN ASPART [NOVOLOG] 3 ML PEN SC SCH ×8 (08:27→21:14)
--- NOTE | 2018-10-04 13:14 | PN ---
Date/Time of Note Date/Time of Note DATE: 10/04/18 TIME: 13:06 Assessment/Plan VTE Prophylaxis Risk score (from Ns)>0 risk: 1 SCD applied (from Ns): Yes Pharmacological prophylaxis: NA/contraindicated Pharm contraindication: low risk/ambulating Lines/Catheters IV [facility] Type (from [facility] Saline Lock Urinary Cath still in place: No Assessment/Plan Hospital Course Assessment and plan 1. Sepsis secondary to UTI. - Culture showing ESBL - ID consult to follow - Continue with antibiotics - invanz - Antipyretics as needed for fever. - improving 2. Bacteremia. - Continue with antibiotics. - Appears to be improving. 3. Diabetes. - Continue on insulin regimen. - Stable at present. 4. Microcytic anemia. - Monitor H&H. Stable at present. Disposition and plan. continue abx. Awaiting outpatient set up. d/c pending outpatient set up with abx. f/u case management Discussed plan of care with Dr. Sutton Result Diagram: 10/04/18 0520 10/04/18 0520 Results 24hrs Laboratory Tests Test 10/03/18 17:44 10/03/18 20:10 10/04/18 05:20 10/04/18 08:12 Bedside Glucose 241 H 145 218 White Blood Count 7.1 Red Blood Count 4.39 Hemoglobin 9.4 L Hematocrit 31.9 L Mean Corpuscular Volume 72.7 L Mean Corpuscular 21.4 L Hemoglobin Mean Corpuscular 29.5 L Hemoglobin Concent Red Cell Distribution 17.6 H Width Platelet Count 383 Mean Platelet Volume 9.0 Immature Granulocytes % 0.600 H Neutrophils % 53.5 Lymphocytes % 37.0 Monocytes % 6.9 Eosinophils % 1.7 Basophils % 0.3 Nucleated Red Blood 0.0 Cells % Immature Granulocytes # 0.040 H Neutrophils # 3.8 Lymphocytes # 2.6 Monocytes # 0.5 Eosinophils # 0.1 Basophils # 0.0 Nucleated Red Blood 0.0 Cells # Sodium Level 140 Potassium Level 4.1 Chloride Level 107 Carbon Dioxide Level 25 Anion Gap 8 Blood Urea Nitrogen 13 Creatinine 0.43 L Est Glomerular Filtrat > 60 Rate mL/min Glucose Level 206 Calcium Level 8.2 L Test 10/04/18 11:48 Bedside Glucose 147 Subjective 24 Hr Interval Summary Free Text/Dictation no pain or dysuria. comfortable at present. Exam/Review of Systems Exam Vitals Vital Signs Date Temp Pulse Resp B/P (MAP) Pulse Ox O2 O2 Flow FiO2 Time Delivery Rate 10/04/18 65 12:00 10/04/18 98.5 20 110/75 97 11:30 (87) 10/01/18 Room Air 16:34 Intake and Output 10/03/18 10/03/18 10/04/18 1515:00 23:00 07:00 IntakeIntake Total 100 ml 2050 ml 480 ml BalanceBalance 100 ml 2050 ml 480 ml Exam Constitutional: alert, oriented Psych: nl mood/affect Head: normocephalic Neck: supple, non-tender Respiratory: clear to auscultation Cardiovascular: regular rate and rhythm Gastrointestinal: soft Musculoskeletal: nl extremities to inspection Neurological: BILLET INSPECTOR II-XII intact, nl mental status, nl speech Results Results 24hrs Laboratory Tests Test 10/03/18 17:44 10/03/18 20:10 10/04/18 05:20 10/04/18 08:12 Bedside Glucose 241 H 145 218 White Blood Count 7.1 Red Blood Count 4.39 Hemoglobin 9.4 L Hematocrit 31.9 L Mean Corpuscular Volume 72.7 L Mean Corpuscular 21.4 L Hemoglobin Mean Corpuscular 29.5 L Hemoglobin Concent Red Cell Distribution 17.6 H Width Platelet Count 383 Mean Platelet Volume 9.0 Immature Granulocytes % 0.600 H Neutrophils % 53.5 Lymphocytes % 37.0 Monocytes % 6.9 Eosinophils % 1.7 Basophils % 0.3 Nucleated Red Blood 0.0 Cells % Immature Granulocytes # 0.040 H Neutrophils # 3.8 Lymphocytes # 2.6 Monocytes # 0.5 Eosinophils # 0.1 Basophils # 0.0 Nucleated Red Blood 0.0 Cells # Sodium Level 140 Potassium Level 4.1 Chloride Level 107 Carbon Dioxide Level 25 Anion Gap 8 Blood Urea Nitrogen 13 Creatinine 0.43 L Est Glomerular Filtrat > 60 Rate mL/min Glucose Level 206 Calcium Level 8.2 L Test 10/04/18 11:48 Bedside Glucose 147 Medications Medication Current Medications IV Flush (NS 3 ml) 3 ml PER PROTOCOL IV ; Start 09/28/18 at 19:00 Ondansetron HCl (Zofran Inj) 4 mg Q6H PRN IV NAUSEA/VOMITING; Start 09/28/18 at 19:00 Acetaminophen (Tylenol Tab) 650 mg Q6H PRN PO .PAIN 1-3 OR TEMP Last administered on 09/30/18at 19:52; Admin Dose 650 MG; Start 09/28/18 at 19:00 Diagnostic Test (Pha) (Accu-Chek) 1 ea 02 XX Last administered on 09/30/18at 02:00; Admin Dose 1 EA; Start 09/29/18 at 02:00 Insulin Aspart (Novolog Insulin Pen) NOVOLOG *MODERATE* ALGORITHM WITH MEALS BEDTIME SC Last administered on 10/04/18at 11:49; Admin Dose 2 UNIT; Start 09/28/18 at 21:00 Miscellaneous Information 1 ea NOTE XX ; Start 09/28/18 at 19:30 Glucose (Glutose) 15 gm Q15M PRN PO DECREASED GLUCOSE; Start 09/28/18 at 19:30 Glucose (Glutose) 22.5 gm Q15M PRN PO DECREASED GLUCOSE; Start 09/28/18 at 19:30 Dextrose (D50w Syringe) 25 ml Q15M PRN IV DECREASED GLUCOSE; Start 09/28/18 at 19:30 Dextrose (D50w Syringe) 50 ml Q15M PRN IV DECREASED GLUCOSE; Start 09/28/18 at 19:30 Glucagon (Glucagen) 1 mg Q15M PRN IM DECREASED GLUCOSE; Start 09/28/18 at 19:30 Glucose (Glutose) 15 gm Q15M PRN BUCCAL DECREASED GLUCOSE; Start 09/28/18 at 19:30 Pantoprazole (Protonix Tab) 40 mg DAILY@0600 PO Last administered on 10/04/18at 05:23; Admin Dose 40 MG; Start 09/28/18 at 22:30 Al Hydrox/Mg Hydrox/Simethicone (Mag-Al Plus) 30 ml Q4H PRN PO HEARTBURN; Start 09/28/18 at 22:30 Ibuprofen (Motrin) 600 mg Q6H PRN PO headache Last administered on 10/04/18at 05:26; Admin Dose 600 MG; Start 10/01/18 at 00:00 Ertapenem 1 gm/ Sodium Chloride 100 ml @ 200 mls/hr Q24H IVPB Last administered on 10/03/18at 13:39; Admin Dose 200 MLS/HR; Start 10/02/18 at 13:00 Insulin Aspart (Novolog Insulin Pen) 5 unit WITH MEALS SC ; Start 10/04/18 at 12:00 Insulin Glargine (Lantus) 15 units DAILY@0800 SC ; Start 10/05/18 at 08:00 NIKI HAWLEY NP Oct 04, 2018 13:14
[2018-10-04] MEDS: ERTAPENEM SODIUM 1 GM in SOD CHLORIDE 0.9% 100 ML IVPB SCH (13:19)
--- NOTE | 2018-10-04 16:15 | CONS ---
Assessment/Plan Assessment/Plan Hospital Course (Demo Recall) No acute events Microbiology: Urine culture grew E. coli blood culture grew E. coli ESBL Antimicrobials: Invanz Physical examination: Obese well-developed middle-aged woman who is a lert in no distress. Head atraumatic normocephalic neck is supple chest rise symmetrical breath sounds clear. Heart: S1-S2. Abdomen soft bowel sounds present. Extremities without cyanosis. Assessment: 1. E. coli ESBL bacteremia secondary to urinary tract infection 2. Diabetes Plan: Stable, repeat blood cultures negative, continue antibiotics to complete 2 weeks Consultation Date/Type/Reason Admit Date/Time September 28, 2018 at 17:33 Initial Consult Date Type of Consult id Date/Time of Note DATE: 10/04/18 TIME: 16:14 Exam/Review of Systems Exam Vitals Vital Signs Date Temp Pulse Resp B/P (MAP) Pulse Ox O2 O2 Flow FiO2 Time Delivery Rate 10/04/18 98.5 75 20 120/71 97 15:09 (87) 10/01/18 Room Air 16:34 Intake and Output 10/03/18 10/03/18 10/04/18 1515:00 23:00 07:00 IntakeIntake Total 100 ml 2050 ml 480 ml BalanceBalance 100 ml 2050 ml 480 ml Results Result Diagram: 10/04/18 0520 10/04/18 0520 Results 24hrs Laboratory Tests Test 10/03/18 17:44 10/03/18 20:10 10/04/18 05:20 10/04/18 08:12 Bedside Glucose 241 H 145 218 White Blood Count 7.1 Red Blood Count 4.39 Hemoglobin 9.4 L Hematocrit 31.9 L Mean Corpuscular Volume 72.7 L Mean Corpuscular 21.4 L Hemoglobin Mean Corpuscular 29.5 L Hemoglobin Concent Red Cell Distribution 17.6 H Width Platelet Count 383 Mean Platelet Volume 9.0 Immature Granulocytes % 0.600 H Neutrophils % 53.5 Lymphocytes % 37.0 Monocytes % 6.9 Eosinophils % 1.7 Basophils % 0.3 Nucleated Red Blood 0.0 Cells % Immature Granulocytes # 0.040 H Neutrophils # 3.8 Lymphocytes # 2.6 Monocytes # 0.5 Eosinophils # 0.1 Basophils # 0.0 Nucleated Red Blood 0.0 Cells # Sodium Level 140 Potassium Level 4.1 Chloride Level 107 Carbon Dioxide Level 25 Anion Gap 8 Blood Urea Nitrogen 13 Creatinine 0.43 L Est Glomerular Filtrat > 60 Rate mL/min Glucose Level 206 Calcium Level 8.2 L Test 10/04/18 11:48 Bedside Glucose 147 Medications Medication Current Medications IV Flush (NS 3 ml) 3 ml PER PROTOCOL IV ; Start 09/28/18 at 19:00 Ondansetron HCl (Zofran Inj) 4 mg Q6H PRN IV NAUSEA/VOMITING; Start 09/28/18 at 19:00 Acetaminophen (Tylenol Tab) 650 mg Q6H PRN PO .PAIN 1-3 OR TEMP Last administered on 09/30/18at 19:52; Admin Dose 650 MG; Start 09/28/18 at 19:00 Diagnostic Test (Pha) (Accu-Chek) 1 ea 02 XX Last administered on 09/30/18at 02:00; Admin Dose 1 EA; Start 09/29/18 at 02:00 Insulin Aspart (Novolog Insulin Pen) NOVOLOG *MODERATE* ALGORITHM WITH MEALS BEDTIME SC Last administered on 10/04/18at 11:49; Admin Dose 2 UNIT; Start 09/28/18 at 21:00 Miscellaneous Information 1 ea NOTE XX ; Start 09/28/18 at 19:30 Glucose (Glutose) 15 gm Q15M PRN PO DECREASED GLUCOSE; Start 09/28/18 at 19:30 Glucose (Glutose) 22.5 gm Q15M PRN PO DECREASED GLUCOSE; Start 09/28/18 at 19:30 Dextrose (D50w Syringe) 25 ml Q15M PRN IV DECREASED GLUCOSE; Start 09/28/18 at 19:30 Dextrose (D50w Syringe) 50 ml Q15M PRN IV DECREASED GLUCOSE; Start 09/28/18 at 19:30 Glucagon (Glucagen) 1 mg Q15M PRN IM DECREASED GLUCOSE; Start 09/28/18 at 19:30 Glucose (Glutose) 15 gm Q15M PRN BUCCAL DECREASED GLUCOSE; Start 09/28/18 at 19:30 Pantoprazole (Protonix Tab) 40 mg DAILY@0600 PO Last administered on 10/04/18at 05:23; Admin Dose 40 MG; Start 09/28/18 at 22:30 Al Hydrox/Mg Hydrox/Simethicone (Mag-Al Plus) 30 ml Q4H PRN PO HEARTBURN; Start 09/28/18 at 22:30 Ibuprofen (Motrin) 600 mg Q6H PRN PO headache Last administered on 10/04/18at 05:26; Admin Dose 600 MG; Start 10/01/18 at 00:00 Ertapenem 1 gm/ Sodium Chloride 100 ml @ 200 mls/hr Q24H IVPB Last administered on 10/04/18at 13:19; Admin Dose 200 MLS/HR; Start 10/02/18 at 13:00 Insulin Aspart (Novolog Insulin Pen) 5 unit WITH MEALS SC Last administered on 10/04/18at 12:10; Admin Dose 5 UNIT; Start 10/04/18 at 12:00 Insulin Glargine (Lantus) 15 units DAILY@0800 SC ; Start 10/05/18 at 08:00 MARIA FERNANDA DAVALOS NP Oct 04, 2018 16:15
[2018-10-05] VITALS (11 sets, daily range): BP systolic 111–125; BP diastolic 68–75; PULSE 68–84; RESP 18–20
[2018-10-05] MEDS: ACCU-CHEK XX SCH (02:00)
[2018-10-05] MEDS: PANTOPRAZOLE (EC) 40 MG TAB PO SCH (06:17)
[2018-10-05] MEDS: INSULIN ASPART [NOVOLOG] 3 ML PEN SC SCH ×7 (09:11→21:00)
[2018-10-05] MEDS: INSULIN GLARGINE [LANTus] (100 UNITS/ML) SYG SC SCH (09:11)
--- NOTE | 2018-10-05 12:42 | PN ---
Date/Time of Note Date/Time of Note DATE: 10/05/18 TIME: 12:37 Assessment/Plan VTE Prophylaxis Risk score ([place] [facility] [place] risk: 1 SCD applied (from Ns): Yes Pharmacological prophylaxis: NA/contraindicated Pharm contraindication: low risk/ambulating Lines/Catheters [facility]from [facility] Saline Lock Urinary Cath still in place: No Assessment/Plan Hospital Course Assessment and plan 1. Sepsis secondary to UTI. - Culture showing ESBL - ID consult to follow - Continue with antibiotics - invanz - Antipyretics as needed for fever. - improving 2. Bacteremia. - Continue with antibiotics. - Appears to be improving. 3. Diabetes. - Continue on insulin regimen. - Stable at present. 4. Microcytic anemia. - Monitor H&H. Stable at present. Disposition and plan. continue abx. Awaiting outpatient set up. d/c pending outpatient set up with abx. continue current tx and supportive care Discussed plan of care with Dr. Sutton Result Diagram: 10/05/18 0906 10/05/18 0906 Results 24hrs Laboratory Tests Test 10/04/18 17:15 10/04/18 20:29 10/05/18 02:10 10/05/18 08:36 Bedside Glucose 170 221 H 239 H 242 H Test 10/05/18 09:06 10/05/18 12:19 White Blood Count 7.5 Red Blood Count 4.91 Hemoglobin 10.5 L Hematocrit 35.8 L Mean Corpuscular Volume 72.9 L Mean Corpuscular 21.4 L Hemoglobin Mean Corpuscular 29.3 L Hemoglobin Concent Red Cell Distribution 17.7 H Width Platelet Count 429 H Mean Platelet Volume 8.8 Immature Granulocytes % 0.500 H Neutrophils % 56.2 Lymphocytes % 36.1 Monocytes % 5.6 Eosinophils % 1.3 Basophils % 0.3 Nucleated Red Blood 0.0 Cells % Immature Granulocytes # 0.040 H Neutrophils # 4.2 Lymphocytes # 2.7 Monocytes # 0.4 Eosinophils # 0.1 Basophils # 0.0 Nucleated Red Blood 0.0 Cells # Sodium Level 139 Potassium Level 4.6 Chloride Level 104 Carbon Dioxide Level 26 Anion Gap 9 Blood Urea Nitrogen 14 Creatinine 0.47 Est Glomerular Filtrat > 60 Rate mL/min Glucose Level 282 H Calcium Level 8.8 Bedside Glucose 164 Subjective 24 Hr Interval Summary Free Text/Dictation no s/s of distress. comfortable at present. 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, nl mental status, nl speech Results Results 24hrs Laboratory Tests Test 10/04/18 17:15 10/04/18 20:29 10/05/18 02:10 10/05/18 08:36 Bedside Glucose 170 221 H 239 H 242 H Test 10/05/18 09:06 10/05/18 12:19 White Blood Count 7.5 Red Blood Count 4.91 Hemoglobin 10.5 L Hematocrit 35.8 L Mean Corpuscular Volume 72.9 L Mean Corpuscular 21.4 L Hemoglobin Mean Corpuscular 29.3 L Hemoglobin Concent Red Cell Distribution 17.7 H Width Platelet Count 429 H Mean Platelet Volume 8.8 Immature Granulocytes % 0.500 H Neutrophils % 56.2 Lymphocytes % 36.1 Monocytes % 5.6 Eosinophils % 1.3 Basophils % 0.3 Nucleated Red Blood 0.0 Cells % Immature Granulocytes # 0.040 H Neutrophils # 4.2 Lymphocytes # 2.7 Monocytes # 0.4 Eosinophils # 0.1 Basophils # 0.0 Nucleated Red Blood 0.0 Cells # Sodium Level 139 Potassium Level 4.6 Chloride Level 104 Carbon Dioxide Level 26 Anion Gap 9 Blood Urea Nitrogen 14 Creatinine 0.47 Est Glomerular Filtrat > 60 Rate mL/min Glucose Level 282 H Calcium Level 8.8 Bedside Glucose 164 Medications Medication Current Medications IV Flush (NS 3 ml) 3 ml PER PROTOCOL IV ; Start 09/28/18 at 19:00 Ondansetron HCl (Zofran Inj) 4 mg Q6H PRN IV NAUSEA/VOMITING; Start 09/28/18 at 19:00 Acetaminophen (Tylenol Tab) 650 mg Q6H PRN PO .PAIN 1-3 OR TEMP Last administered on 09/30/18at 19:52; Admin Dose 650 MG; Start 09/28/18 at 19:00 Diagnostic Test (Pha) (Accu-Chek) 1 ea 02 XX Last administered on 10/05/18at 02:00; Admin Dose 1 EA; Start 09/29/18 at 02:00 Insulin Aspart (Novolog Insulin Pen) NOVOLOG *MODERATE* ALGORITHM WITH MEALS BEDTIME SC Last administered on 10/05/18at 12:21; Admin Dose 2 UNIT; Start 09/28/18 at 21:00 Miscellaneous Information 1 ea NOTE XX ; Start 09/28/18 at 19:30 Glucose (Glutose) 15 gm Q15M PRN PO DECREASED GLUCOSE; Start 09/28/18 at 19:30 Glucose (Glutose) 22.5 gm Q15M PRN PO DECREASED GLUCOSE; Start 09/28/18 at 19:30 Dextrose (D50w Syringe) 25 ml Q15M PRN IV DECREASED GLUCOSE; Start 09/28/18 at 19:30 Dextrose (D50w Syringe) 50 ml Q15M PRN IV DECREASED GLUCOSE; Start 09/28/18 at 19:30 Glucagon (Glucagen) 1 mg Q15M PRN IM DECREASED GLUCOSE; Start 09/28/18 at 19:30 Glucose (Glutose) 15 gm Q15M PRN BUCCAL DECREASED GLUCOSE; Start 09/28/18 at 19:30 Pantoprazole (Protonix Tab) 40 mg DAILY@0600 PO Last administered on 10/05/18at 06:17; Admin Dose 40 MG; Start 09/28/18 at 22:30 Al Hydrox/Mg Hydrox/Simethicone (Mag-Al Plus) 30 ml Q4H PRN PO HEARTBURN; Start 09/28/18 at 22:30 Ibuprofen (Motrin) 600 mg Q6H PRN PO headache Last administered on 10/04/18at 05:26; Admin Dose 600 MG; Start 10/01/18 at 00:00 Ertapenem 1 gm/ Sodium Chloride 100 ml @ 200 mls/hr Q24H IVPB Last administered on 10/04/18at 13:19; Admin Dose 200 MLS/HR; Start 10/02/18 at 13:00 Insulin Aspart (Novolog Insulin Pen) 5 unit WITH MEALS SC Last administered on 10/05/18at 12:27; Admin Dose 5 UNIT; Start 10/04/18 at 12:00 Insulin Glargine (Lantus) 15 units DAILY@0800 SC Last administered on 10/05/18at 09:11; Admin Dose 15 UNITS; Start 10/05/18 at 08:00 NIKI HAWLEY NP Oct 05, 2018 12:42
[2018-10-05] MEDS: ERTAPENEM SODIUM 1 GM in SOD CHLORIDE 0.9% 100 ML IVPB SCH (13:34)
--- NOTE | 2018-10-05 15:28 | CONS ---
Assessment/Plan Assessment/Plan Hospital Course (Demo Recall) No acute events awake, feels good, no fevers Microbiology: Urine culture grew E. coli blood culture grew E. coli ESBL Antimicrobials: Invanz Physical examination: Obese well-developed middle-aged woman who is alert in no distress. Head atraumatic normocephalic neck is supple chest rise symmetrical breath sounds clear. Heart: S1-S2. Abdomen soft bowel sounds present. Extremities without cyanosis. Assessment: 1. E. coli ESBL bacteremia secondary to urinary tract infection 2. Diabetes Plan: Stable, repeat blood cultures negative, continue antibiotics to complete 2 weeks Consultation Date/Type/Reason Admit Date/Time September 28, 2018 at 17:33 Initial Consult Date Type of Consult id Date/Time of Note DATE: 10/05/18 TIME: 15:27 Exam/Review of Systems Exam Vitals Vital Signs Date Temp Pulse Resp B/P (MAP) Pulse Ox O2 O2 Flow FiO2 Time Delivery Rate 10/05/18 98.4 73 18 111/68 96 15:20 (82) 10/01/18 Room Air 16:34 Intake and Output 10/04/18 10/04/18 10/05/18 1515:00 23:00 07:00 IntakeIntake Total 1750 ml 800 ml BalanceBalance 1750 ml 800 ml Results Result Diagram: 10/05/18 0906 10/05/18 0906 Results 24hrs Laboratory Tests Test 10/04/18 17:15 10/04/18 20:29 10/05/18 02:10 10/05/18 08:36 Bedside Glucose 170 221 H 239 H 242 H Test 10/05/18 09:06 10/05/18 12:19 White Blood Count 7.5 Red Blood Count 4.91 Hemoglobin 10.5 L Hematocrit 35.8 L Mean Corpuscular Volume 72.9 L Mean Corpuscular 21.4 L Hemoglobin Mean Corpuscular 29.3 L Hemoglobin Concent Red Cell Distribution 17.7 H Width Platelet Count 429 H Mean Platelet Volume 8.8 Immature Granulocytes % 0.500 H Neutrophils % 56.2 Lymphocytes % 36.1 Monocytes % 5.6 Eosinophils % 1.3 Basophils % 0.3 Nucleated Red Blood 0.0 Cells % Immature Granulocytes # 0.040 H Neutrophils # 4.2 Lymphocytes # 2.7 Monocytes # 0.4 Eosinophils # 0.1 Basophils # 0.0 Nucleated Red Blood 0.0 Cells # Sodium Level 139 Potassium Level 4.6 Chloride Level 104 Carbon Dioxide Level 26 Anion Gap 9 Blood Urea Nitrogen 14 Creatinine 0.47 Est Glomerular Filtrat > 60 Rate mL/min Glucose Level 282 H Calcium Level 8.8 Bedside Glucose 164 Medications Medication Current Medications IV Flush (NS 3 ml) 3 ml PER PROTOCOL IV ; Start 09/28/18 at 19:00 Ondansetron HCl (Zofran Inj) 4 mg Q6H PRN IV NAUSEA/VOMITING; Start 09/28/18 at 19:00 Acetaminophen (Tylenol Tab) 650 mg Q6H PRN PO .PAIN 1-3 OR TEMP Last administered on 09/30/18at 19:52; Admin Dose 650 MG; Start 09/28/18 at 19:00 Diagnostic Test (Pha) (Accu-Chek) 1 ea 02 XX Last administered on 10/05/18at 02:00; Admin Dose 1 EA; Start 09/29/18 at 02:00 Insulin Aspart (Novolog Insulin Pen) NOVOLOG *MODERATE* ALGORITHM WITH MEALS BEDTIME SC Last administered on 10/05/18at 12:21; Admin Dose 2 UNIT; Start 09/28/18 at 21:00 Miscellaneous Information 1 ea NOTE XX ; Start 09/28/18 at 19:30 Glucose (Glutose) 15 gm Q15M PRN PO DECREASED GLUCOSE; Start 09/28/18 at 19:30 Glucose (Glutose) 22.5 gm Q15M PRN PO DECREASED GLUCOSE; Start 09/28/18 at 19:30 Dextrose (D50w Syringe) 25 ml Q15M PRN IV DECREASED GLUCOSE; Start 09/28/18 at 19:30 Dextrose (D50w Syringe) 50 ml Q15M PRN IV DECREASED GLUCOSE; Start 09/28/18 at 19:30 Glucagon (Glucagen) 1 mg Q15M PRN IM DECREASED GLUCOSE; Start 09/28/18 at 19:30 Glucose (Glutose) 15 gm Q15M PRN BUCCAL DECREASED GLUCOSE; Start 09/28/18 at 19:30 Pantoprazole (Protonix Tab) 40 mg DAILY@0600 PO Last administered on 10/05/18at 06:17; Admin Dose 40 MG; Start 09/28/18 at 22:30 Al Hydrox/Mg Hydrox/Simethicone (Mag-Al Plus) 30 ml Q4H PRN PO HEARTBURN; Start 09/28/18 at 22:30 Ibuprofen (Motrin) 600 mg Q6H PRN PO headache Last administered on 10/04/18at 05:26; Admin Dose 600 MG; Start 10/01/18 at 00:00 Ertapenem 1 gm/ Sodium Chloride 100 ml @ 200 mls/hr Q24H IVPB Last administered on 10/05/18at 13:34; Admin Dose 200 MLS/HR; Start 10/02/18 at 13:00 Insulin Aspart (Novolog Insulin Pen) 5 unit WITH MEALS SC Last administered on 10/05/18at 12:27; Admin Dose 5 UNIT; Start 10/04/18 at 12:00 Insulin Glargine (Lantus) 15 units DAILY@0800 SC Last administered on 10/05/18at 09:11; Admin Dose 15 UNITS; Start 10/05/18 at 08:00 MARIA FERNANDA DAVALOS NP Oct 05, 2018 15:28
[2018-10-05] MEDS: IBUPROFEN 600 MG TAB PO PRN (21:09)
[2018-10-06] VITALS (8 sets, daily range): BP systolic 104–122; BP diastolic 64–75; PULSE 74–95; RESP 17–22
[2018-10-06] MEDS: ACCU-CHEK XX SCH (02:00)
[2018-10-06] MEDS: PANTOPRAZOLE (EC) 40 MG TAB PO SCH (05:48)
[2018-10-06] MEDS: INSULIN ASPART [NOVOLOG] 3 ML PEN SC SCH ×7 (08:28→20:47)
[2018-10-06] MEDS: INSULIN GLARGINE [LANTus] (100 UNITS/ML) SYG SC SCH (08:28)
--- NOTE | 2018-10-06 12:55 | PN ---
Date/Time of Note Date/Time of Note DATE: 10/06/18 TIME: 12:54 Assessment/Plan VTE Prophylaxis Risk score (from Ns)>0 risk: 2 SCD applied (from Ns): Yes Pharmacological prophylaxis: NA/contraindicated Pharm contraindication: low risk/ambulating Lines/Catheters IV [facility]from [facility] Saline Lock Urinary Cath still in place: No Assessment/Plan Hospital Course Assessment and plan 1. Sepsis secondary to UTI. - Culture showing ESBL - ID consult to follow - Continue with antibiotics - invanz - Antipyretics as needed for fever. - improving 2. Bacteremia. - Continue with antibiotics. - improving 3. Diabetes. - Continue on insulin regimen. - Stable at present. 4. Microcytic anemia. - Monitor H&H. Stable at present. Disposition and plan. continue abx. Awaiting outpatient set up. d/c pending outpatient set up with abx. transfer to med/surg Discussed plan of care with Dr. Sutton Result Diagram: 10/06/18 0535 10/06/18 0535 Results 24hrs Laboratory Tests Test 10/05/18 17:09 10/05/18 20:58 10/06/18 05:35 10/06/18 08:09 Bedside Glucose 163 142 253 H White Blood Count 6.5 Red Blood Count 4.50 Hemoglobin 9.9 L Hematocrit 33.0 L Mean Corpuscular Volume 73.3 L Mean Corpuscular 22.0 L Hemoglobin Mean Corpuscular 30.0 L Hemoglobin Concent Red Cell Distribution 17.2 H Width Platelet Count 429 H Mean Platelet Volume 9.0 Immature Granulocytes % 0.300 Neutrophils % 39.6 Lymphocytes % 50.0 Monocytes % 7.8 Eosinophils % 2.0 Basophils % 0.3 Nucleated Red Blood 0.0 Cells % Immature Granulocytes # 0.020 Neutrophils # 2.6 Lymphocytes # 3.3 H Monocytes # 0.5 Eosinophils # 0.1 Basophils # 0.0 Nucleated Red Blood 0.0 Cells # Sodium Level 140 Potassium Level 4.2 Chloride Level 104 Carbon Dioxide Level 29 Anion Gap 7 Blood Urea Nitrogen 16 Creatinine 0.62 Est Glomerular Filtrat > 60 Rate mL/min Glucose Level 181 # Calcium Level 9.0 Test 10/06/18 12:01 Bedside Glucose 248 H Subjective 24 Hr Interval Summary Free Text/Dictation no s/s of distress. 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, nl mental status, nl speech Results Results 24hrs Laboratory Tests Test 10/05/18 17:09 10/05/18 20:58 10/06/18 05:35 10/06/18 08:09 Bedside Glucose 163 142 253 H White Blood Count 6.5 Red Blood Count 4.50 Hemoglobin 9.9 L Hematocrit 33.0 L Mean Corpuscular Volume 73.3 L Mean Corpuscular 22.0 L Hemoglobin Mean Corpuscular 30.0 L Hemoglobin Concent Red Cell Distribution 17.2 H Width Platelet Count 429 H Mean Platelet Volume 9.0 Immature Granulocytes % 0.300 Neutrophils % 39.6 Lymphocytes % 50.0 Monocytes % 7.8 Eosinophils % 2.0 Basophils % 0.3 Nucleated Red Blood 0.0 Cells % Immature Granulocytes # 0.020 Neutrophils # 2.6 Lymphocytes # 3.3 H Monocytes # 0.5 Eosinophils # 0.1 Basophils # 0.0 Nucleated Red Blood 0.0 Cells # Sodium Level 140 Potassium Level 4.2 Chloride Level 104 Carbon Dioxide Level 29 Anion Gap 7 Blood Urea Nitrogen 16 Creatinine 0.62 Est Glomerular Filtrat > 60 Rate mL/min Glucose Level 181 # Calcium Level 9.0 Test 10/06/18 12:01 Bedside Glucose 248 H Medications Medication Current Medications IV Flush (NS 3 ml) 3 ml PER PROTOCOL IV ; Start 09/28/18 at 19:00 Ondansetron HCl (Zofran Inj) 4 mg Q6H PRN IV NAUSEA/VOMITING; Start 09/28/18 at 19:00 Acetaminophen (Tylenol Tab) 650 mg Q6H PRN PO .PAIN 1-3 OR TEMP Last administered on 09/30/18at 19:52; Admin Dose 650 MG; Start 09/28/18 at 19:00 Diagnostic Test (Pha) (Accu-Chek) 1 ea 02 XX Last administered on 10/05/18at 02:00; Admin Dose 1 EA; Start 09/29/18 at 02:00 Insulin Aspart (Novolog Insulin Pen) NOVOLOG *MODERATE* ALGORITHM WITH MEALS BEDTIME SC Last administered on 10/06/18 12:06; Admin Dose 6 UNIT; Start 09/28/18 at 21:00 Miscellaneous Information 1 ea NOTE XX ; Start 09/28/18 at 19:30 Glucose (Glutose) 15 gm Q15M PRN PO DECREASED GLUCOSE; Start 09/28/18 at 19:30 Glucose (Glutose) 22.5 gm Q15M PRN PO DECREASED GLUCOSE; Start 09/28/18 at 19 :30 Dextrose (D50w Syringe) 25 ml Q15M PRN IV DECREASED GLUCOSE; Start 09/28/18 at 19:30 Dextrose (D50w Syringe) 50 ml Q15M PRN IV DECREASED GLUCOSE; Start 09/28/18 at 19:30 Glucagon (Glucagen) 1 mg Q15M PRN IM DECREASED GLUCOSE; Start 09/28/18 at 19:30 Glucose (Glutose) 15 gm Q15M PRN BUCCAL DECREASED GLUCOSE; Start 09/28/18 at 19:30 Pantoprazole (Protonix Tab) 40 mg DAILY@0600 PO Last administered on 10/06/18at 05:48; Admin Dose 40 MG; Start 09/28/18 at 22:30 Al Hydrox/Mg Hydrox/Simethicone (Mag-Al Plus) 30 ml Q4H PRN PO HEARTBURN; Start 09/28/18 at 22:30 Ibuprofen (Motrin) 600 mg Q6H PRN PO headache Last administered on 10/05/18 21:09; Admin Dose 600 MG; Start 10/01/18 at 00:00 Ertapenem 1 gm/ Sodium Chloride 100 ml @ 200 mls/hr Q24H IVPB Last administered on 10/05/18 13:34; Admin Dose 200 MLS/HR; Start 10/02/18 at 13:00 Insulin Aspart (Novolog Insulin Pen) 5 unit WITH MEALS SC Last administered on 10/06/18 12:06; Admin Dose 5 UNIT; Start 10/04/18 at 12:00 Insulin Glargine (Lantus) 15 units DAILY@0800 SC Last administered on 10/06/18at 08:28; Admin Dose 15 UNITS; Start 10/05/18 at 08:00 NIKI HAWLEY NP Oct 06, 2018 12:55
[2018-10-06] MEDS: ERTAPENEM SODIUM 1 GM in SOD CHLORIDE 0.9% 100 ML IVPB SCH (14:00)
--- NOTE | 2018-10-06 18:05 | CONS ---
Assessment/Plan Assessment/Plan Hospital Course (Demo Recall) 1200 No acute events awake, feels good, no fevers Microbiology: Urine culture grew E. coli blood culture grew E. coli ESBL Antimicrobials: Invanz Physical examination: Obese well-developed middle-aged woman who is alert in no distress. Head atraumatic normocephalic neck is supple chest rise symmetrical breath sounds clear. Heart: S1-S2. Abdomen soft bowel sounds present. Extremities without cyanosis. Assessment: 1. E. coli ESBL bacteremia secondary to urinary tract infection 2. Diabetes Plan: Stable, repeat blood cultures negative, continue antibiotics to complete 2 weeks Consultation Date/Type/Reason Admit Date/Time September 28, 2018 at 17:33 Initial Consult Date Type of Consult id Date/Time of Note DATE: 10/06/18 TIME: 18:05 Exam/Review of Systems Exam Vitals Vital Signs Date Temp Pulse Resp B/P (MAP) Pulse Ox O2 O2 Flow FiO2 Time Delivery Rate 10/06/18 98.7 74 18 122/75 98 17:25 (91) 10/06/18 Room Air 11:35 Intake and Output 10/05/18 10/05/18 10/06/18 1515:00 23:00 07:00 IntakeIntake Total 720 ml 500 ml BalanceBalance 720 ml 500 ml Results Result Diagram: 10/06/18 0535 10/06/18 0535 Results 24hrs Laboratory Tests Test 10/05/18 20:58 10/06/18 05:35 10/06/18 08:09 10/06/18 12:01 Bedside Glucose 142 253 H 248 H White Blood Count 6.5 Red Blood Count 4.50 Hemoglobin 9.9 L Hematocrit 33.0 L Mean Corpuscular Volume 73.3 L Mean Corpuscular 22.0 L Hemoglobin Mean Corpuscular 30.0 L Hemoglobin Concent Red Cell Distribution 17.2 H Width Platelet Count 429 H Mean Platelet Volume 9.0 Immature Granulocytes % 0.300 Neutrophils % 39.6 Lymphocytes % 50.0 Monocytes % 7.8 Eosinophils % 2.0 Basophils % 0.3 Nucleated Red Blood 0.0 Cells % Immature Granulocytes # 0.020 Neutrophils # 2.6 Lymphocytes # 3.3 H Monocytes # 0.5 Eosinophils # 0.1 Basophils # 0.0 Nucleated Red Blood 0.0 Cells # Sodium Level 140 Potassium Level 4.2 Chloride Level 104 Carbon Dioxide Level 29 Anion Gap 7 Blood Urea Nitrogen 16 Creatinine 0.62 Est Glomerular Filtrat > 60 Rate mL/min Glucose Level 181 # Calcium Level 9.0 Test 10/06/18 17:53 Bedside Glucose 159 Medications Medication Current Medications IV Flush (NS 3 ml) 3 ml PER PROTOCOL IV ; Start 09/28/18 at 19:00 Ondansetron HCl (Zofran Inj) 4 mg Q6H PRN IV NAUSEA/VOMITING; Start 09/28/18 at 19:00 Acetaminophen (Tylenol Tab) 650 mg Q6H PRN PO .PAIN 1-3 OR TEMP Last administered on 09/30/18at 19:52; Admin Dose 650 MG; Start 09/28/18 at 19:00 Diagnostic Test (Pha) (Accu-Chek) 1 ea 02 XX Last administered on 10/05/18at 02:00; Admin Dose 1 EA; Start 09/29/18 at 02:00 Insulin Aspart (Novolog Insulin Pen) NOVOLOG *MODERATE* ALGORITHM WITH MEALS BEDTIME SC Last administered on 10/06/18at 12:06; Admin Dose 6 UNIT; Start 09/28/18 at 21:00 Miscellaneous Information 1 ea NOTE XX ; Start 09/28/18 at 19:30 Glucose (Glutose) 15 gm Q15M PRN PO DECREASED GLUCOSE; Start 09/28/18 at 19:30 Glucose (Glutose) 22.5 gm Q15M PRN PO DECREASED GLUCOSE; Start 09/28/18 at 1 9:30 Dextrose (D50w Syringe) 25 ml Q15M PRN IV DECREASED GLUCOSE; Start 09/28/18 at 19:30 Dextrose (D50w Syringe) 50 ml Q15M PRN IV DECREASED GLUCOSE; Start 09/28/18 at 19:30 Glucagon (Glucagen) 1 mg Q15M PRN IM DECREASED GLUCOSE; Start 09/28/18 at 19:30 Glucose (Glutose) 15 gm Q15M PRN BUCCAL DECREASED GLUCOSE; Start 09/28/18 at 19:30 Pantoprazole (Protonix Tab) 40 mg DAILY@0600 PO Last administered on 10/06/18at 05:48; Admin Dose 40 MG; Start 09/28/18 at 22:30 Al Hydrox/Mg Hydrox/Simethicone (Mag-Al Plus) 30 ml Q4H PRN PO HEARTBURN; Start 09/28/18 at 22:30 Ibuprofen (Motrin) 600 mg Q6H PRN PO headache Last administered on 10/05/18at 21:09; Admin Dose 600 MG; Start 10/01/18 at 00:00 Ertapenem 1 gm/ Sodium Chloride 100 ml @ 200 mls/hr Q24H IVPB Last administered on 10/06/18at 14:00; Admin Dose 200 MLS/HR; Start 10/02/18 at 13:00 Insulin Aspart (Novolog Insulin Pen) 5 unit WITH MEALS SC Last administered on 10/06/18 12:06; Admin Dose 5 UNIT; Start 10/04/18 at 12:00 Insulin Glargine (Lantus) 15 units DAILY@0800 SC Last administered on 10/06/18 08:28; Admin Dose 15 UNITS; Start 10/05/18 at 08:00 MARIA FERNANDA DAVALOS NP Oct 06, 2018 18:05
[2018-10-07] MEDS: ACCU-CHEK XX SCH (02:00)
[2018-10-07 02:15] VITALS: BP 108/64; PULSE 65; RESP 18
[2018-10-07] MEDS: PANTOPRAZOLE (EC) 40 MG TAB PO SCH (05:42)
[2018-10-07 07:34] VITALS: BP 116/67; PULSE 69; RESP 20
[2018-10-07] MEDS: INSULIN ASPART [NOVOLOG] 3 ML PEN SC SCH ×7 (08:19→21:00)
[2018-10-07] MEDS: INSULIN GLARGINE [LANTus] (100 UNITS/ML) SYG SC SCH (08:20)
--- NOTE | 2018-10-07 10:59 | PN ---
Date/Time of Note Date/Time of Note DATE: 10/07/18 TIME: 10:57 Assessment/Plan VTE Prophylaxis Risk score (from Ns)>0 risk: 2 [place] [facility] [place] Pharmacological prophylaxis: NA/contraindicated Pharm contraindication: low risk/ambulating Lines/Catheters IV C[facility] Type (from [facility] Saline Lock Urinary Cath still in place: No Assessment/Plan Hospital Course Assessment and plan 1. Sepsis secondary to UTI. - Culture showing ESBL - ID consult to follow - Continue with antibiotics - invanz - Antipyretics as needed for fever. - improving 2. Bacteremia. - Continue with antibiotics. - improving 3. Diabetes. - Continue on insulin regimen. - Stable at present. 4. Microcytic anemia. - Monitor H&H. Stable at present. Disposition and plan. continue abx. Awaiting outpatient set up. d/c pending outpatient set up with abx. continue current tx Discussed plan of care with Dr. Sutton Result Diagram: 10/07/18 0542 10/07/18 0542 Results 24hrs Laboratory Tests Test 10/06/18 12:01 10/06/18 17:53 10/06/18 20:46 10/07/18 05:42 Bedside Glucose 248 H 159 152 White Blood Count 6.5 Red Blood Count 4.61 Hemoglobin 9.8 L Hematocrit 34.0 L Mean Corpuscular Volume 73.8 L Mean Corpuscular 21.3 L Hemoglobin Mean Corpuscular 28.8 L Hemoglobin Concent Red Cell Distribution 17.1 H Width Platelet Count 416 H Mean Platelet Volume 8.8 Immature Granulocytes % 0.300 Neutrophils % 40.1 Lymphocytes % 48.7 Monocytes % 8.1 Eosinophils % 2.2 Basophils % 0.6 Nucleated Red Blood 0.0 Cells % Immature Granulocytes # 0.020 Neutrophils # 2.6 Lymphocytes # 3.2 H Monocytes # 0.5 Eosinophils # 0.1 Basophils # 0.0 Nucleated Red Blood 0.0 Cells # Sodium Level 138 Potassium Level 4.7 Chloride Level 103 Carbon Dioxide Level 28 Anion Gap 7 Blood Urea Nitrogen 13 Creatinine 0.55 Est Glomerular Filtrat > 60 Rate mL/min Glucose Level 187 Calcium Level 8.9 Test 10/07/18 07:58 Bedside Glucose 196 Subjective 24 Hr Interval Summary Free Text/Dictation comfortable. no specific complaints Exam/Review of Systems Exam Vitals Vital Signs Date Temp Pulse Resp B/P (MAP) Pulse Ox O2 O2 Flow FiO2 Time Delivery Rate 10/07/18 98.5 69 20 116/67 97 07:34 (83) 10/06/18 Room Air 11:35 Intake and Output 10/06/18 10/06/18 10/07/18 1515:00 23:00 07:00 IntakeIntake Total 400 ml 300 ml BalanceBalance 400 ml 300 ml Exam Constitutional: alert, oriented Psych: nl mood/affect Head: normocephalic Neck: supple, non-tender Respiratory: clear to auscultation Cardiovascular: regular rate and rhythm Gastrointestinal: soft Musculoskeletal: nl extremities to inspection Neurological: CORRUGATOR OPERATOR HELPER II-XII intact, nl mental status, nl speech Results Results 24hrs Laboratory Tests Test 10/06/18 12:01 10/06/18 17:53 10/06/18 20:46 10/07/18 05:42 Bedside Glucose 248 H 159 152 White Blood Count 6.5 Red Blood Count 4.61 Hemoglobin 9.8 L Hematocrit 34.0 L Mean Corpuscular Volume 73.8 L Mean Corpuscular 21.3 L Hemoglobin Mean Corpuscular 28.8 L Hemoglobin Concent Red Cell Distribution 17.1 H Width Platelet Count 416 H Mean Platelet Volume 8.8 Immature Granulocytes % 0.300 Neutrophils % 40.1 Lymphocytes % 48.7 Monocytes % 8.1 Eosinophils % 2.2 Basophils % 0.6 Nucleated Red Blood 0.0 Cells % Immature Granulocytes # 0.020 Neutrophils # 2.6 Lymphocytes # 3.2 H Monocytes # 0.5 Eosinophils # 0.1 Basophils # 0.0 Nucleated Red Blood 0.0 Cells # Sodium Level 138 Potassium Level 4.7 Chloride Level 103 Carbon Dioxide Level 28 Anion Gap 7 Blood Urea Nitrogen 13 Creatinine 0.55 Est Glomerular Filtrat > 60 Rate mL/min Glucose Level 187 Calcium Level 8.9 Test 10/07/18 07:58 Bedside Glucose 196 Medications Medication Current Medications IV Flush (NS 3 ml) 3 ml PER PROTOCOL IV ; Start 09/28/18 at 19:00 Ondansetron HCl (Zofran Inj) 4 mg Q6H PRN IV NAUSEA/VOMITING; Start 09/28/18 at 19:00 Acetaminophen (Tylenol Tab) 650 mg Q6H PRN PO .PAIN 1-3 OR TEMP Last administered on 09/30/18at 19:52; Admin Dose 650 MG; Start 09/28/18 at 19:00 Diagnostic Test (Pha) (Accu-Chek) 1 ea 02 XX Last administered on 10/05/18at 02:00; Admin Dose 1 EA; Start 09/29/18 at 02:00 Insulin Aspart (Novolog Insulin Pen) NOVOLOG *MODERATE* ALGORITHM WITH MEALS BEDTIME SC Last administered on 10/07/18 08:19; Admin Dose 2 UNIT; Start 09/28/18 at 21:00 Miscellaneous Information 1 ea NOTE XX ; Start 09/28/18 at 19:30 Glucose (Glutose) 15 gm Q15M PRN PO DECREASED GLUCOSE; Start 09/28/18 at 19:30 Glucose (Glutose) 22.5 gm Q15M PRN PO DECREASED GLUCOSE; Start 09/28/18 at 19:30 Dextrose (D50w Syringe) 25 ml Q15M PRN IV DECREASED GLUCOSE; Start 09/28/18 at 19:30 Dextrose (D50w Syringe) 50 ml Q15M PRN IV DECREASED GLUCOSE; Start 09/28/18 at 19:30 Glucagon (Glucagen) 1 mg Q15M PRN IM DECREASED GLUCOSE; Start 09/28/18 at 19:30 Glucose (Glutose) 15 gm Q15M PRN BUCCAL DECREASED GLUCOSE; Start 09/28/18 at 19:30 Pantoprazole (Protonix Tab) 40 mg DAILY@0600 PO Last administered on 10/07/18at 05:42; Admin Dose 40 MG; Start 09/28/18 at 22:30 Al Hydrox/Mg Hydrox/Simethicone (Mag-Al Plus) 30 ml Q4H PRN PO HEARTBURN; Start 09/28/18 at 22:30 Ibuprofen (Motrin) 600 mg Q6H PRN PO headache Last administered on 10/05/18at 21:09; Admin Dose 600 MG; Start 10/01/18 at 00:00 Ertapenem 1 gm/ Sodium Chloride 100 ml @ 200 mls/hr Q24H IVPB Last administered on 10/06/18at 14:00; Admin Dose 200 MLS/HR; Start 10/02/18 at 13:00 Insulin Aspart (Novolog Insulin Pen) 5 unit WITH MEALS SC Last administered on 10/07/18at 08:19; Admin Dose 5 UNIT; Start 10/04/18 at 12:00 Insulin Glargine (Lantus) 15 units DAILY@0800 SC Last administered on 10/07/18at 08:20; Admin Dose 15 UNITS; Start 10/05/18 at 08:00 NIKI HAWLEY NP Oct 07, 2018 10:59
[2018-10-07] MEDS: ERTAPENEM SODIUM 1 GM in SOD CHLORIDE 0.9% 100 ML IVPB SCH (13:49)
[2018-10-07 14:16] VITALS: BP 103/60; PULSE 78; RESP 20
[2018-10-07 20:09] VITALS: BP 113/68; PULSE 76; RESP 18
[2018-10-08] MEDS: ACCU-CHEK XX SCH (01:22)
[2018-10-08 02:33] VITALS: BP 99/61; PULSE 70; RESP 18
[2018-10-08] MEDS: PANTOPRAZOLE (EC) 40 MG TAB PO SCH (05:36)
[2018-10-08] MEDS: INSULIN ASPART [NOVOLOG] 3 ML PEN SC SCH ×7 (08:08→20:58)
[2018-10-08] MEDS: INSULIN GLARGINE [LANTus] (100 UNITS/ML) SYG SC SCH (08:19)
[2018-10-08 08:30] VITALS: BP 101/51; PULSE 78; RESP 18
--- NOTE | 2018-10-08 09:30 | PN ---
Date/Time of Note Date/Time of Note DATE: 10/08/18 TIME: 09:27 Assessment/Plan VTE Prophylaxis Risk score (from Ns)>0 risk: 3 SCD applied (from Ns): Yes Pharmacological prophylaxis: NA/contraindicated Pharm contraindication: low risk/ambulating Lines/Catheters IV [facility] Type (from [facility] Mid Line Urinary Cath still in place: No Assessment/Plan Hospital Course Assessment and plan 1. Sepsis secondary to UTI. - Culture showing ESBL - ID consult to follow - Continue with antibiotics - invanz - Antipyretics as needed for fever. - improving 2. Bacteremia. - Continue with antibiotics. - improving 3. Diabetes. - Continue on insulin regimen. - Stable at present. 4. Microcytic anemia. - Monitor H&H. Stable at present. Disposition and plan. continue abx. Awaiting outpatient set up. d/c pending outpatient set up with abx. continue current tx and supportive care. check AM labs Discussed plan of care with Dr. Sutton Result Diagram: 10/08/186 10/08/18 0446 Results 24hrs Laboratory Tests Test 10/07/18 12:16 10/07/18 17:36 10/07/18 20:44 10/08/18 04:46 Bedside Glucose 194 145 117 White Blood Count 6.5 Red Blood Count 4.67 Hemoglobin 10.1 L Hematocrit 34.4 L Mean Corpuscular Volume 73.7 L Mean Corpuscular 21.6 L Hemoglobin Mean Corpuscular 29.4 L Hemoglobin Concent Red Cell Distribution 17.1 H Width Platelet Count 456 H Mean Platelet Volume 9.1 Immature Granulocytes % 0.200 Neutrophils % 44.9 Lymphocytes % 45.9 Monocytes % 7.1 Eosinophils % 1.4 Basophils % 0.5 Nucleated Red Blood 0.0 Cells % Immature Granulocytes # 0.010 Neutrophils # 2.9 Lymphocytes # 3.0 H Monocytes # 0.5 Eosinophils # 0.1 Basophils # 0.0 Nucleated Red Blood 0.0 Cells # Sodium Level 138 Potassium Level 4.4 Chloride Level 102 Carbon Dioxide Level 28 Anion Gap 8 Blood Urea Nitrogen 17 Creatinine 0.59 Est Glomerular Filtrat > 60 Rate mL/min Glucose Level 183 Calcium Level 9.0 Test 10/08/18 08:05 Bedside Glucose 212 Subjective 24 Hr Interval Summary Free Text/Dictation comfortable at present. no s/s of distress Exam/Review of Systems Exam Vitals Vital Signs Date Temp Pulse Resp B/P (MAP) Pulse Ox O2 O2 Flow FiO2 Time Delivery Rate 10/08/18 98.3 78 18 101/51 94 08:30 (68) 10/06/18 Room Air 11:35 Intake and Output 10/07/18 10/07/18 10/08/18 1414:59 22:59 06:59 IntakeIntake Total 1080 ml 1540 ml 320 ml BalanceBalance 1080 ml 1540 ml 320 ml Exam Constitutional: alert, oriented Psych: nl mood/affect Head: normocephalic Neck: supple, non-tender Respiratory: clear to auscultation Cardiovascular: regular rate and rhythm Gastrointestinal: soft Musculoskeletal: nl extremities to inspection Neurological: CREDIT RISK ANALYST II-XII intact, nl mental status, nl speech Results Results 24hrs Laboratory Tests Test 10/07/18 12:16 10/07/18 17:36 10/07/18 20:44 10/08/18 04:46 Bedside Glucose 194 145 117 White Blood Count 6.5 Red Blood Count 4.67 Hemoglobin 10.1 L Hematocrit 34.4 L Mean Corpuscular Volume 73.7 L Mean Corpuscular 21.6 L Hemoglobin Mean Corpuscular 29.4 L Hemoglobin Concent Red Cell Distribution 17.1 H Width Platelet Count 456 H Mean Platelet Volume 9.1 Immature Granulocytes % 0.200 Neutrophils % 44.9 Lymphocytes % 45.9 Monocytes % 7.1 Eosinophils % 1.4 Basophils % 0.5 Nucleated Red Blood 0.0 Cells % Immature Granulocytes # 0.010 Neutrophils # 2.9 Lymphocytes # 3.0 H Monocytes # 0.5 Eosinophils # 0.1 Basophils # 0.0 Nucleated Red Blood 0.0 Cells # Sodium Level 138 Potassium Level 4.4 Chloride Level 102 Carbon Dioxide Level 28 Anion Gap 8 Blood Urea Nitrogen 17 Creatinine 0.59 Est Glomerular Filtrat > 60 Rate mL/min Glucose Level 183 Calcium Level 9.0 Test 10/08/18 08:05 Bedside Glucose 212 Medications Medication Current Medications IV Flush (NS 3 ml) 3 ml PER PROTOCOL IV ; Start 09/28/18 at 19:00 Ondansetron HCl (Zofran Inj) 4 mg Q6H PRN IV NAUSEA/VOMITING; Start 09/28/18 at 19:00 Acetaminophen (Tylenol Tab) 650 mg Q6H PRN PO .PAIN 1-3 OR TEMP Last administered on 09/30/18at 19:52; Admin Dose 650 MG; Start 09/28/18 at 19:00 Diagnostic Test (Pha) (Accu-Chek) 1 ea 02 XX Last administered on 10/05/18at 02:00; Admin Dose 1 EA; Start 09/29/18 at 02:00 Insulin Aspart (Novolog Insulin Pen) NOVOLOG *MODERATE* ALGORITHM WITH MEALS BEDTIME SC Last administered on 10/08/18at 08:08; Admin Dose 4 UNIT; Start 09/28/18 at 21:00 Miscellaneous Information 1 ea NOTE XX ; Start 09/28/18 at 19:30 Glucose (Glutose) 15 gm Q15M PRN PO DECREASED GLUCOSE; Start 09/28/18 at 19:30 Glucose (Glutose) 22.5 gm Q15M PRN PO DECREASED GLUCOSE; Start 09/28/18 at 19:30 Dextrose (D50w Syringe) 25 ml Q15M PRN IV DECREASED GLUCOSE; Start 09/28/18 at 19:30 Dextrose (D50w Syringe) 50 ml Q15M PRN IV DECREASED GLUCOSE; Start 09/28/18 at 19:30 Glucagon (Glucagen) 1 mg Q15M PRN IM DECREASED GLUCOSE; Start 09/28/18 at 19:30 Glucose (Glutose) 15 gm Q15M PRN BUCCAL DECREASED GLUCOSE; Start 09/28/18 at 19:30 Pantoprazole (Protonix Tab) 40 mg DAILY@0600 PO Last administered on 10/08/18at 05:36; Admin Dose 40 MG; Start 09/28/18 at 22:30 Al Hydrox/Mg Hydrox/Simethicone (Mag-Al Plus) 30 ml Q4H PRN PO HEARTBURN; Start 09/28/18 at 22:30 Ibuprofen (Motrin) 600 mg Q6H PRN PO headache Last administered on 10/05/18 21:09; Admin Dose 600 MG; Start 10/01/18 at 00:00 Ertapenem 1 gm/ Sodium Chloride 100 ml @ 200 mls/hr Q24H IVPB Last administered on 10/07/18 13:49; Admin Dose 200 MLS/HR; Start 10/02/18 at 13:00 Insulin Aspart (Novolog Insulin Pen) 5 unit WITH MEALS SC Last administered on 6/9/19at 08:12; Admin Dose 5 UNIT; Start 10/04/18 at 12:00 Insulin Glargine (Lantus) 15 units DAILY@0800 SC Last administered on 10/08/18at 08:19; Admin Dose 15 UNITS; Start 10/05/18 at 08:00 NIKI HAWLEY NP Oct 08, 2018 09:30
[2018-10-08] MEDS: ERTAPENEM SODIUM 1 GM in SOD CHLORIDE 0.9% 100 ML IVPB SCH (12:34)
[2018-10-08 14:59] VITALS: BP 105/60; PULSE 87; RESP 18
[2018-10-08 19:46] VITALS: BP 110/61; PULSE 77; RESP 18
[2018-10-09 01:26] VITALS: BP 104/63; PULSE 74; RESP 18
[2018-10-09] MEDS: ACCU-CHEK XX SCH (02:17)
[2018-10-09] MEDS: PANTOPRAZOLE (EC) 40 MG TAB PO SCH (06:09)
[2018-10-09 07:44] VITALS: BP_SYST 108; BP_SYST 112; BP_DIAS 65; BP_DIAS 74; PULSE 80; RESP 20
[2018-10-09] MEDS: INSULIN ASPART [NOVOLOG] 3 ML PEN SC SCH ×4 (08:26→13:27)
[2018-10-09] MEDS: INSULIN GLARGINE [LANTus] (100 UNITS/ML) SYG SC SCH (08:28)
[2018-10-09] MEDS: ERTAPENEM SODIUM 1 GM in SOD CHLORIDE 0.9% 100 ML IVPB SCH (13:20)
--- NOTE | 2018-10-09 13:36 | PN ---
Date/Time of Note Date/Time of Note DATE: 10/09/18 TIME: 13:36 Assessment/Plan VTE Prophylaxis Risk score (from Ns)>0 risk: 1 SCD applied (from Ns): No SCD contraindicated: other Pharmacological prophylaxis: NA/contraindicated Pharm contraindication: low risk/ambulating Lines/Catheters IV C[facility]ter Type (from [facility] Mid Line Urinary Cath still in place: No Assessment/Plan Hospital Course SUBJECTIVE: Remains afebrile. Denies any abdominal pain. Denies any dysuria. OBJECTIVE: Physical Exam General: Adequately build 43 year-old female lying in bed in no apparent distress. HEENT: Normocephalic, atraumatic. Eyes: Anicteric sclerae, conjunctivae clear. ENT: Nasal septum midline, oral mucosa moist. Neck supple, no JVD noticed. Respiratory: Bilaterally clear breath sounds. No use of accessory muscles of respiration. No adventitious breath sounds. Cardiovascular: S1, S2 heard. No murmurs or gallops. Abdomen: Soft, nontender, and nondistended. Bowel sounds positive in all 4 quadrants. Genitourinary: Deferred. Extremities: No cyanosis, no clubbing, no edema. Peripheral pulses palpable. Neurologic: Cranial nerves II through XII grossly intact. The patient is awake, alert, and oriented. Skin: Normal skin turgor. No skin rashes. Labs & Vitals per chart ASSESSMENT & PLAN 43-year-old female with comorbidities including diabetes mellitus and obesity who came to the emergency room with chief complaint of fevers, shaking chills, and nausea with underlying febrile illness (fever as high as 107.6 F) and tachycardia with positive urinalysis, who was admitted to inpatient setting for further treatment and evaluation. 1. Status post severe sepsis with fevers, tachycardia, and hypotension present on admission. Urine culture positive for E. coli. Blood culture positive for E. coli ESBL Continue antimicrobials as per sensitivities. 2. Complicated urinary tract infection. Urine culture positive for E. coli with colony count more than 100,000 CFU per mL. Continue antimicrobials as per ID. 3. E. coli ESBL bacteremia. Continue antimicrobials as per ID. 4. Diabetes mellitus. Hemoglobin A1c 14.0. Continue sliding scale insulin along with basal insulin. Add metformin. 5. Microcytic, hypochromic anemia. Continue to monitor H&H closely. 6. Obesity. BMI more than 32 kg/m. Weight reduction advised. 7. Fluids, electrolytes, and nutrition. Carbohydrate controlled diet. 8. DVT prophylaxis. Bilateral SCDs. 9. Plan. Continue antimicrobials as per ID. Await arrangement of outpatient IV medications/home health before the patient can be discharged home. The patient was seen in collaboration with Dr. Cortes. Result Diagram: 10/09/18 0545 10/09/18 0545 Results 24hrs Laboratory Tests Test 10/08/18 17:42 10/08/18 20:49 10/09/18 01:39 10/09/18 05:45 Bedside Glucose 155 185 159 White Blood Count 5.8 Red Blood Count 4.82 Hemoglobin 10.3 L Hematocrit 35.2 L Mean Corpuscular 73.0 L Volume Mean Corpuscular 21.4 L Hemoglobin Mean Corpuscular 29.3 L Hemoglobin Concent Red Cell 16.6 H Distribution Width Platelet Count 432 H Mean Platelet Volume 9.0 Immature 0.200 Granulocytes % Neutrophils % 41.8 Lymphocytes % 47.7 Monocytes % 8.1 Eosinophils % 1.9 Basophils % 0.3 Nucleated Red Blood 0.0 Cells % Immature 0.010 Granulocytes # Neutrophils # 2.4 Lymphocytes # 2.8 Monocytes # 0.5 Eosinophils # 0.1 Basophils # 0.0 Nucleated Red Blood 0.0 Cells # Sodium Level 137 Potassium Level 4.7 Chloride Level 102 Carbon Dioxide Level 29 Anion Gap 6 Blood Urea Nitrogen 17 Creatinine 0.50 Est Glomerular > 60 Filtrat Rate mL/min Glucose Level 215 Calcium Level 8.9 Test 10/09/18 07:54 10/09/18 12:43 Bedside Glucose 237 H 218 Exam/Review of Systems Exam Vitals Vital Signs Date Temp Pulse Resp B/P (MAP) Pulse Ox O2 O2 Flow FiO2 Time Delivery Rate 10/09/18 98.1 80 20 112/74 98 07:44 (87) 10/06/18 Room Air 11:35 Intake and Output 10/08/18 10/08/18 10/09/18 1414:59 22:59 06:59 IntakeIntake Total 580 ml 240 ml BalanceBalance 580 ml 240 ml Results Results 24hrs Laboratory Tests Test 10/08/18 17:42 10/08/18 20:49 10/09/18 01:39 10/09/18 05:45 Bedside Glucose 155 185 159 White Blood Count 5.8 Red Blood Count 4.82 Hemoglobin 10.3 L Hematocrit 35.2 L Mean Corpuscular 73.0 L Volume Mean Corpuscular 21.4 L Hemoglobin Mean Corpuscular 29.3 L Hemoglobin Concent Red Cell 16.6 H Distribution Width Platelet Count 432 H Mean Platelet Volume 9.0 Immature 0.200 Granulocytes % Neutrophils % 41.8 Lymphocytes % 47.7 Monocytes % 8.1 Eosinophils % 1.9 Basophils % 0.3 Nucleated Red Blood 0.0 Cells % Immature 0.010 Granulocytes # Neutrophils # 2.4 Lymphocytes # 2.8 Monocytes # 0.5 Eosinophils # 0.1 Basophils # 0.0 Nucleated Red Blood 0.0 Cells # Sodium Level 137 Potassium Level 4.7 Chloride Level 102 Carbon Dioxide Level 29 Anion Gap 6 Blood Urea Nitrogen 17 Creatinine 0.50 Est Glomerular > 60 Filtrat Rate mL/min Glucose Level 215 Calcium Level 8.9 Test 10/09/18 07:54 10/09/18 12:43 Bedside Glucose 237 H 218 Medications Medication Current Medications IV Flush (NS 3 ml) 3 ml PER PROTOCOL IV ; Start 09/28/18 at 19:00 Ondansetron HCl (Zofran Inj) 4 mg Q6H PRN IV NAUSEA/VOMITING; Start 09/28/18 at 19:00 Acetaminophen (Tylenol Tab) 650 mg Q6H PRN PO .PAIN 1-3 OR TEMP Last administered on 09/30/18at 19:52; Admin Dose 650 MG; Start 09/28/18 at 19:00 Diagnostic Test (Pha) (Accu-Chek) 1 ea 02 XX Last administered on 10/09/18at 02:17; Admin Dose 1 EA; Start 09/29/18 at 02:00 Insulin Aspart (Novolog Insulin Pen) NOVOLOG *MODERATE* ALGORITHM WITH MEALS BEDTIME SC Last administered on 10/09/18at 13:27; Admin Dose 4 UNIT; Start 09/28/18 at 21:00 Miscellaneous Information 1 ea NOTE XX ; Start 09/28/18 at 19:30 Glucose (Glutose) 15 gm Q15M PRN PO DECREASED GLUCOSE; Start 09/28/18 at 19:30 Glucose (Glutose) 22.5 gm Q15M PRN PO DECREASED GLUCOSE; Start 09/28/18 at 19:30 Dextrose (D50w Syringe) 25 ml Q15M PRN IV DECREASED GLUCOSE; Start 09/28/18 at 19:30 Dextrose (D50w Syringe) 50 ml Q15M PRN IV DECREASED GLUCOSE; Start 09/28/18 at 19:30 Glucagon (Glucagen) 1 mg Q15M PRN IM DECREASED GLUCOSE; Start 09/28/18 at 19:30 Glucose (Glutose) 15 gm Q15M PRN BUCCAL DECREASED GLUCOSE; Start 09/28/18 at 19:30 Pantoprazole (Protonix Tab) 40 mg DAILY@0600 PO Last administered on 10/09/18at 06:09; Admin Dose 40 MG; Start 09/28/18 at 22:30 Al Hydrox/Mg Hydrox/Simethicone (Mag-Al Plus) 30 ml Q4H PRN PO HEARTBURN; Start 09/28/18 at 22:30 Ibuprofen (Motrin) 600 mg Q6H PRN PO headache Last administered on 10/05/18at 21:09; Admin Dose 600 MG; Start 10/01/18 at 00:00 Ertapenem 1 gm/ Sodium Chloride 100 ml @ 200 mls/hr Q24H IVPB Last administered on 10/09/18 13:20; Admin Dose 200 MLS/HR; Start 10/02/18 at 13:00 Insulin Aspart (Novolog Insulin Pen) 5 unit WITH MEALS SC Last administered on 10/09/18 13:27; Admin Dose 5 UNIT; Start 10/04/18 at 12:00 Insulin Glargine (Lantus) 15 units DAILY@0800 SC Last administered on 10/09/18 08:28; Admin Dose 15 UNITS; Start 10/05/18 at 08:00 MOHAMUD PANDEY NP Oct 09, 2018 13:36
[2018-10-09 13:46] VITALS: BP 122/79; PULSE 90; RESP 20
[2018-10-09] MEDS ORDERED: ERTA1VIA3 IV (14:45)
[2018-10-09] MEDS ORDERED: METF-849 PO (14:45)
[2018-10-09] MEDS ORDERED: [UNRECOGNIZED DRUG - CODE] MC (14:53)
[2018-10-09] MEDS ORDERED: Insulin Glargine SC (14:53)
[2018-10-09] MEDS ORDERED: [UNRECOGNIZED DRUG - CODE] MC (14:53)
[2018-10-09] MEDS ORDERED: LANC1COM MC (14:53)
[2018-10-09] MEDS ORDERED: LANT3I SC (14:54)
--- NOTE | 2018-10-09 14:59 | PDOCDIS ---
Discharge Instructions CONDITION [id number] Patient Condition: [id number] Stable HOME CARE INSTRUCTIONS: [id number] Diet Instructions: [id number] Carb Controlled Diet ACTIVITY: [id number] Activity Restrictions: [id number] Slowly Increase Activity Rest between Activity Avoid heavy lifting Avoid Heavy Housework [id number] Activity Restrictions [id number] Cover midline whenever Comment: showering do not get iv line wet FOLLOW UP/APPOINTMENTS Follow-up Plan Ze Diaz MD Specialty: Internal Medicine Office Address: [address] [place] [address] [place] [address] Office OTHER ORDERS: Other Orders: 1. Complete the course of antibiotics. 2. Resume home medications. 3. Follow a low-cholesterol, low carbohydrate diet. 4. Resume activities as tolerated. 5. Please follow-up with your primary care physician in 1 week. If you do not have a primary care physician, please call Dr. Ze Diaz's office. 6. Please go to the nearest emergency room if you have persistent fevers, s ignificant abdominal pain, or any other unusual signs/symptoms. MOHAMUD PANDEY NP Oct 09, 2018 14:59
--- NOTE | 2018-10-09 16:59 | DS ---
Date/Time of Note Date/Time of Note DATE: 10/09/18 TIME: 16:55 Discharge Summary Admission/Discharge Info Admit Date/Time September 28, 2018 at 17:33 Discharge Date/Time Discharge Diagnosis 1. Status post severe sepsis with fevers, tachycardia, and hypotension present on admission. 2. Complicated urinary tract infection. 3. E. coli ESBL bacteremia. 4. Diabetes mellitus. Hemoglobin A1c 14.0. 5. Microcytic, hypochromic anemia. 6. Obesity. BMI more than 32 kg/m. Patient Condition: Stable Consults 1. Adryan Willams MD, Infectious Diseases. Hx of Present Illness This is a 43-year-old female with comorbidities including diabetes mellitus and obesity who came to the emergency room with chief complaint of fevers, shaking chills, and nausea with underlying febrile illness (fever as high as 107.6 F) and tachycardia with positive urinalysis, who was admitted to inpatient setting for further treatment and evaluation. Hospital Course The patient had evidence of severe sepsis with fevers, tachycardia, and hypotension present on admission. The patient was started on empiric antimicrobials. Pancultures were obtained. An infectious disease consult was obtained. The patient's urine culture showed E. coli and the patient's blood culture was showing E. coli ESBL. The patient was maintained on antimicrobials as per sensitivities. The patient responded well to antimicrobial therapy and a clinical decision was made to discharge this patient home with IV antibiotic therapy. However, because of insurance reasons, the patient's discharge had delayed. The patient already had a midline inserted and the patient is a stable to be released home to complete the course of antibiotic therapy for 2 weeks. The patient's comorbidities include underlying diabetes mellitus. The patient was noticed to have uncontrolled diabetes with a hemoglobin A1c of 14.0. The patient was maintained on sliding scale insulin along with basal insulin. The patient was evaluated by ems educator. The patient was also started on metformin. The patient was noticed to have microcytic, hypochromic anemia. The patient's H&H remained stable. The patient is obese with a BMI of more than 32 kg/m. The patient was advised on weight reduction. The patient was advised on a low calorie diet. The patient had a stable hospital course. The patient is stable to be discharged home. Discharge Instructions 1. Complete the course of antibiotics. 2. Resume home medications. 3. Follow a low-cholesterol, low carbohydrate diet. 4. Resume activities as tolerated. 5. Please follow-up with your primary care physician in 1 week. If you do not have a primary care physician, please call Dr. Ze Diaz's office. 6. Please go to the nearest emergency room if you have persistent fevers, significant abdominal pain, or any other unusual signs/symptoms. The patient verbalized understanding of the discharge instructions. At this time I would like to thank all the consultants for seeing the patient and providing clinical recommendations. The patient was seen in collaboration with Dr. Cortes. Home Meds Active Scripts Insulin Glargine* (Lantus*) 100 Unit/Ml Soln, 15 UNIT SC DAILY, #1 VIAL Prov:MOHAMUD PANDEY NP 10/09/18 [place], Insulin Disposable (NEEDLES) 1 Each Dis.needle, EACH MC DAILY, #30 Prov:MOHAMUD PANDEY NP 10/09/18 Lancets/Blood Glucose Strips (Fora [id number] Lanct-Str) 1 Each Combo..pkg, EACH MC TID, #1 Prov:MOHAMUD PANDEY NP 10/09/18 [place] W-Ndl,Disp,Insul,0.3ML (INSULIN SYRINGE) 1 Each Disp.syrin, EACH MC DAILY, #2 Prov:MOHAMUD PANDEY NP 10/09/18 [Insulin Glargine] 100 UNITS/ML SOLN No Conflict Check, 15 UNITS SC DAILY@0800, #1 VIAL Prov:MOHAMUD PANDEY NP 10/09/18 Ertapenem Sodium (Invanz) 1 Gm Vial, 1 GM IV Q24H for 10 Days, VIAL To complete a course of 14 days. Prov:MOHAMUD PANDEY NP 10/09/18 Metformin* (Glucophage*) 500 Mg Tab, 500 MG PO BID WITH MEALS, #60 TAB Prov:MOHAMUD PANDEY NP 10/09/18 Discontinued Reported Medications Ibuprofen* (Ibuprofen*) 200 Mg Capsule, 400 MG PO NEEDED, CAP 09/28/18 Amoxicillin* (Amoxicillin*) 500 Mg Cap, 500 MG PO BID, #20 CAP 09/28/18 Follow-up Plan Ze Diaz MD Specialty: Internal Medicine Office Address: [address] [place] [address] [place], [place] [id number] Office Primary Care Provider Care Physician No Primary Time spent on discharge: > 30 minutes Pending Labs RUN DATE: 10/01/18 [facility] PAGE 1 RUN TIME: [phone] [place] [address] Regis Zee M.D. Juvenile Justice Officer Caren Benavidez M.D. Co-Juvenile Justice Officer CHRISTBLAINE#: [id number] Name: MICHAELLE LACEY Age/Sex: 43/F Attend Dr: MAREN POLLOCK MD Acct: [id number] MR# : [id number] : 1975 Location: [address] [place] [address]A Admit: 09/28/18 Specimen: [id number] Status: Complete Ryan: 09/28/18 Rcvd: 09/28/18 Source: [facility] Sp Descrip: Procedure Result Microbiology URINE CULTURE Final Organism 1 ESCHERICHIA COLI COLONY COUNT >100,000 CFU/ml E COLI M.I.C. RX --------- --- AMIKACIN <=2 S AMPICILLIN >=32 R CEFAZOLIN <=4 S CEFOTAXIME S CIPROFLOXACIN >=4 R GENTAMICIN >=16 R LEVOFLOXACIN >=8 R NITROFURANTOIN <=16 S TOBRAMYCIN 4 S TRIMETHOPRIM/SULFAMETHOXAZOLE <=20 S ..................... ....................................................................... Flags: Critical Hi = *H Critical Lo = *L Microbiology Abnormal = * Abnormal Hi = H Abnormal Lo = L Blood Bank Abnormal = * Susceptability Flags: S = Sensitive R = Resistant I = Intermediate END OF REPORT RUN DATE: 10/01/18 [facility] PAGE 1 RUN TIME: [phone] [place] [address] Regis Zee M.D. Juvenile Justice Officer Caren Benavidez M.D. Co-Juvenile Justice Officer REY#: [id number] Name: MICHAELLE LACEY Age/Sex: 43/F Attend Dr: MAREN POLLOCK MD Acct: [id number] MR# : [id number] : 1975 Location: [facility]-A Admit: 09/28/18 Specimen: [id number] Status: Complete Ryan: 09/28/18 Rcvd: 09/28/18 Source: BLOOD Sp Descrip: Procedure Result Microbiology BLOOD CULTURE Final BCULT GRAM BOTTLE 1 Gram negative rods . seen on gram stain of the broth Organism 1 ESCHERICHIA COLI (ESBL) . MULTI DRUG RESISTANT ORGANISM CRITICAL TEST VALUE BTL 1 . PHONED TO & READ BACK BY ELLEN LYONS@0029 09/30/18 BY JUNIE PHONED TO [facility] AT 0910 10/01/18 BY AD. NOTIFIED MELITON COLLINS NEHA, IC AT 1028 10/01/18 BY AD. ECOLI ESBL ECOLI ESBL M.I.C. RX M.I.C. RX --------- --- --------- --- AMPICILLIN >=32 R CEFAZOLIN R CEFOTAXIME R CIPROFLOXACIN >=4 R GENTAMICIN <=1 S LEVOFLOXACIN >=8 R MEROPENEM 0.023 S TOBRAMYCIN <=1 S TRIMETHOPRIM/SULFAMETHOXAZOLE <=20 S PIPERACILLIN/TAZOBACTAM <=4 S ............................................................................................ Flags: Critical Hi = *H Critical Lo = *L Microbiology Abnormal = * Abnormal Hi = H Abnormal Lo = L Blood Bank Abnormal = * Susceptability Flags: S = Sensitive R = Resistant I = Intermediate END OF REPORT Laboratory Tests Test 10/08/18 17:42 10/08/18 20:49 10/09/18 01:39 10/09/18 05:45 Bedside 155 185 159 Glucose mg/dL (70-220) mg/dL (70-220) mg/dL (70-220) White Blood 5.8 Count 10^3/ul (4.8-1 0.8) Red Blood 4.82 Count 10^6/ul (4.20- 5.40) Hemoglobin 10.3 g/dl (12.0-16. 0) Hematocrit 35.2 % (37.0-47.0) Mean 73.0 Corpuscular fl (82.0-101.0 Volume ) Mean 21.4 Corpuscular pg (29.0-33.0) Hemoglobin Mean 29.3 Corpuscular g/dl (32.0-37. Hemoglobin Conc 0) ent Red Cell 16.6 Distribution % (11.5-14.5) Width Platelet Count 432 10^3/UL (140-4 15) Mean Platelet 9.0 Volume fl (7.4-10.4) Immature 0.200 Granulocytes % % (0.001-0.429 ) Neutrophils % 41.8 % (39.0-77.0) Lymphocytes % 47.7 % (15.0-51.0) Monocytes % 8.1 % (0.0-11.0) Eosinophils % 1.9 % (0.0-7.0) Basophils % 0.3 % (0.0-2.0) Nucleated Red 0.0 Blood Cells % /100WBC (0.0-0 .0) Immature 0.010 Granulocytes # 10^3/ul (0.0-0 .031) Neutrophils # 2.4 10^3/ul (1.6-7 .5) Lymphocytes # 2.8 10^3/ul (0.8-2 .9) Monocytes # 0.5 10^3/ul (0.3-0 .9) Eosinophils # 0.1 10^3/ul (0.0-0 .5) Basophils # 0.0 10^3/ul (0.0-0 .1) Nucleated Red 0.0 Blood Cells # 10^3/ul (0.0-0 .0) Sodium Level 137 mmol/L (135-14 4) Potassium 4.7 Level mmol/L (3.5-5. 1) Chloride Level 102 mmol/L (97-110 ) Carbon Dioxide 29 Level mmol/L (21-31) Anion Gap 6 (5-13) Blood Urea 17 Nitrogen mg/dl (7-20) Creatinine 0.50 mg/dl (0.44-1. 00) Est Glomerular > 60 Filtrat mL/min (>60) Rate mL/min Glucose Level 215 mg/dl (70-220) Calcium Level 8.9 mg/dl (8.4-10. 2) Test 10/09/18 07:54 10/09/18 12:43 Bedside 237 218 Glucose mg/dL (70-220) mg/dL (70-220) MOHAMUD PANDEY NP Oct 09, 2018 16:59
[2018-10-09] MEDS ORDERED: metFORMIN 500 MG TAB NGT SCH (18:00)
== END 2018-10-09 17:10 | disposition home health service (06) | DRG 872 ==
LOC: E/R 13:44 → 6WM 17:33 → 2NE 10-06 16:06
PROVIDERS: ADMIT Internal Medicine; ATTEND Internal Medicine
DX: A41.9 Sepsis, unspecified organism (principal); N39.0 Urinary tract infection, site not specified; R65.20 Severe sepsis without septic shock; E11.65 Type 2 diabetes mellitus with hyperglycemia; D50.9 Iron deficiency anemia, unspecified; B96.20 Unspecified Escherichia coli [E. coli] as the cause of diseases classified elsewhere; E66.9 Obesity, unspecified; Z68.32 Body mass index [BMI] 32.0-32.9, adult
CPT/HCPCS: 36415; 71045; 80048; 80053; 81001; 82728; 82803; 82962; 83036; 83540; 83605; 83735; 84100; 84145; 84443; 84484; 84703; 85025; 85610; 85730; 87086; 87400; 93005; 96365; 96366; 96367; 96372; 96375; J0696; J1335; J1815; J1885; J2405; J3370; J7030

== ENCOUNTER 2018-12-31 13:36 | Emergency (ER) | payer SELFPAY ==
[~2018-12-31] VITALS: Ht 160 cm; Wt 83.1 kg
[~2018-12-31 13:36] MED LIST changes: +ACET325T33 PO; +ERTA1VIA3 IV; +Insulin Glargine SC; +LANC1COM MC; +LANT3I SC; -LEVO750T25 PO; -LINA5TAB PO; +METF-849 PO; -METF500T PO; -TOPI25TA PO; +[UNRECOGNIZED DRUG - CODE] MC; +[UNRECOGNIZED DRUG - CODE] MC
[2018-12-31 13:42] VITALS: Ht 160 cm; Wt 83.1 kg
[2018-12-31] MEDS ORDERED: SOD CHLORIDE 0.9% 1,000 ML IV STA (15:59)
[2018-12-31] MEDS ORDERED: IOHEXOL 300MG/ML 150 ML BTL ONE (16:58)
[2018-12-31] MEDS ORDERED: SOD CHLORIDE 0.9% 100 ML ONE (16:58)
[2018-12-31 18:14] VITALS: BP 110/68; PULSE 82; RESP 18
== END 2018-12-31 18:44 | disposition home or self-care (01) ==
LOC: E/R 13:36
DX: R50.9 Fever, unspecified (principal); E11.69 Type 2 diabetes mellitus with other specified complication; E66.9 Obesity, unspecified; Z79.4 Long term (current) use of insulin; Z68.32 Body mass index [BMI] 32.0-32.9, adult
CPT/HCPCS: 74177; 80053; 81003; 83605; 84703; 85025; 99285; J7030; Q9967